=== PATIENT | female | born 1985 | race Hispanic/Latino ===

== ENCOUNTER 2020-10-03 00:34 | Emergency (ER) | payer OTHER, SELFPAY ==
[2020-10-03] MEDS ORDERED: dexAMETHasone 10 MG/ML VIAL ONE (02:11)
[2020-10-03] MEDS ORDERED: ALBUTEROL INHALER 60 PUFF/8 GM IH ONE (02:19)
[2020-10-03] MEDS ORDERED: NA CHLORIDE 0.9% 50 ML ONE (05:10)
[2020-10-03] MEDS ORDERED: NA CHLORIDE 0.9% 250 ML ONE (05:10)
[2020-10-03] MEDS ORDERED: CASIRIVIMAB/IMDEVIMAB 10 ML VIAL ONE (05:10)
--- NOTE | 2020-10-03 05:41 | RAD REPORT ---
EXAM DESCRIPTION: CT - Chest For Pe Angio - 10/03/2020 2:33 am CLINICAL HISTORY: Chest pain. shortness of breath COMPARISON: No comparisons TECHNIQUE: CT angiogram of the pulmonary arteries was performed with MIP. All CT scans are performed using dose optimization technique as appropriate and may include automated exposure control or mA/KV adjustment according to patient size. FINDINGS: No evidence of pulmonary thromboembolism. No acute aortic finding demonstrated. Multiple areas alveolar infiltrates are present throughout both lungs greatest in the posterior right upper lobe suggesting underlying moderately severe pulmonary infection. Enlarged right hilar and med iastinal lymph nodes are present. No significant pericardial or pleural fluid. No concerning bony finding. IMPRESSION: No evidence of pulmonary thromboembolism. Moderately severe findings of pulmonary infection are seen. This may be related to underlying COVID-1 9 infection. Adenopathy is also noted in the mediastinum and right hilum.
--- NOTE | 2020-10-03 05:55 | ER ---
Nurse's Notes [facility] Name: Faye Argueta Age: 34 yrs Sex: Female : 1985 Arrival Date: 10/03/2020 Time: 00:38 Bed 8 Private MD: Diagnosis: Coronavirus infection, unspecified Presentation: 10/03 01:21 Chief complaint: Patient states: covid positive on Monday, reports fatigue, fever, N/V em and shortness of breath. Coronavirus screen: Vaccine status: Patient reports being unvaccinated. Ebola Screen: Patient negative for fever greater than or equal to 101.5 degrees Fahrenheit, and additional compatible Ebola Virus Disease symptoms Patient denies exposure to infectious person. Patient denies travel to an Ebola-affected area in the 21 days before illness onset. No symptoms or risks identified at this time. Initial Sepsis Screen: Does the patient meet any 2 criteria? HR > 90 bpm. Does the patient have a suspected source of infection? No. Patient's initial sepsis screen is negative. Risk Assessment: Do you want to hurt yourself or someone else? Patient reports no desire to harm self or others. Onset of symptoms was October 03, 2020. 01:21 Method Of Arrival: Ambulatory em 01:21 Acuity: ANIYAH 3 em Historical: - Allergies: 01:22 No Known Allergies; em - PMHx: 01:22 None; em - PSHx: 01:22 section; em - Immunization history:: Client reports having NOT received the Covid vaccine. - Social history:: Smoking status: Patient denies any tobacco usage or history of. - Family history:: not pertinent. - Hospitalizations: : No recent hospitalization is reported. Assessment: 01:45 General: Appears in no apparent distress. comfortable, Behavior is calm, cooperative. jb4 Pain: Denies pain. Neuro: Level of Consciousness is awake, alert, obeys commands, Oriented to person, place, time, situation. Cardiovascular: Patient's skin is warm and dry. Respiratory: Airway is patent Respiratory effort is even, unlabored, Respiratory pattern is regular, symmetrical. GI: No signs and/or symptoms were reported involving the gastrointestinal system. : No signs and/or symptoms were reported regarding the genitourinary system. EENT: No signs and/or symptoms were reported regarding the EENT system. Derm: No signs and/or symptoms reported regarding the dermatologic system. Skin is intact, Skin is pink, warm \T\ dry. Musculoskeletal: Circulation, motion, and sensation intact. Range of motion: intact in all extremities. 03:00 Reassessment: Patient appears in no apparent distress at this time. Patient and/or jb4 family updated on plan of care and expected duration. Pain level reassessed. Patient is alert, oriented x 3, equal unlabored respirations, skin warm/dry/pink. 05:00 Reassessment: Patient appears in no apparent distress at this time. Patient and/or jb4 family updated on plan of care and expected duration. Pain level reassessed. Patient is alert, oriented x 3, equal unlabored respirations, skin warm/dry/pink. 06:21 Reassessment: Pt is resting in bed with eyes closed, respirations are even and jb4 unlabored with no s/s of pain or distress noted. 06:45 Reassessment: D/c pending Regen-Cov monitoring. jb4 Vital Signs: 01:21 Pulse 100; Resp 26; Temp 98.9; Pulse Ox 99% on R/A; Weight 95.25 kg; Height 5 ft. 1 in. em (154.94 cm); 01:33 BP 106 / 94; em 03:00 BP 99 / 56; Pulse 95; Resp 22; Pulse Ox 95% on R/A; jb4 05:15 BP 90 / 51; Pulse 93; Resp 18; Pulse Ox 95% on R/A; jb4 05:30 BP 100 / 65; Pulse 87; Resp 20; Pulse Ox 94% on R/A; jb4 06:00 BP 106 / 71; Pulse 85; Resp 16; Pulse Ox 92% on R/A; jb4 06:15 BP 108 / 71; Pulse 84; Resp 18; Pulse Ox 93% on R/A; jb4 01:21 Body Mass Index 39.68 (95.25 kg, 154.94 cm) em ED Course: 00:38 Patient arrived in ED. wm 01:17 Mark Cancino PA is PHCP. jmm 01:17 Peewee Vale MD is Attending Physician. jmm 01:22 Triage completed. em 01:22 Arm band placed on. em 02:15 Bertrand Payne, GABBY is Primary Nurse. jb4 02:16 Initial lab(s) drawn, by al, sent to lab. Inserted saline lock: 20 gauge in left jb4 antecubital area, using aseptic technique. Blood collected. 02:33 CT Chest For PE Angio In Process Unspecified. EDNC 07:16 Attending Physician role handed off by Peewee Vale MD cha 07:16 Brayan Mckay MD is Attending Physician. [facility] 07:52 No provider procedures requiring assistance completed. IV discontinued, intact, ss bleeding controlled, No redness/swelling at site. Pressure dressing applied. Administered Medications: 01:59 Not Given (Other Intervention Used): Xopenex (levalbuterol) (3) 1.25 mg Inhalation once jb4 02:15 Drug: Decadron - Dexamethasone 10 mg Route: IVP; Site: left antecubital; jb4 02:45 Follow up: Response: No adverse reaction jb4 02:15 Drug: Albuterol HFA Inhaler 2 puffs Route: Inhalation; jb4 05:15 Drug: REGEN-COV Dose Pack 120 mg/mL-120 mg/mL (EUA) 600 mg Route: IV; Rate: calculated jb4 rate; Site: left antecubital; 06:15 Follow up: Response: No adverse reaction; IV Status: Completed infusion; IV Intake: jb4 260ml 06:20 Drug: NS 0.9% 1000 ml Route: IV; Rate: 1000 ml; Site: left antecubital; jb4 Intake: 06:15 IV: 260ml; Total: 260ml. jb4 Outcome: 05:54 Discharge ordered by . rn 07:52 Discharged to home ambulatory, with family. 07:52 Condition: good 07:52 Discharge instructions given to patient, Instructed on discharge instructions, follow up and referral plans. Demonstrated understanding of instructions, follow-up care. 07:52 Patient left the ED. Signatures: Dispatcher [employer] Brayan Quick MD MD cha Mickail, Joel, PA PA jmm Munoz, Edgar, GABBY PIERRE Peewee Vale MD MD rn Smirch, Shelby, RN RN ss Bryson, James, RN RN jb4 Marsh, Wendy
--- NOTE | 2020-10-03 05:55 | EDPHYS ---
Physician Documentation [facility] Name: Faye Argueta Age: 34 yrs Sex: Female : 1985 Arrival Date: 10/03/2020 Time: 00:38 Bed 8 Private MD: VALENTIN Physician Brayan Mckay HPI: 10/03 03:58 This 34 yrs old Female presents to ER via Ambulatory with complaints of rn Shortness Of Breath, +COVID. 04:02 The patient has shortness of breath at rest, with light activity. Onset: The rn symptoms/episode began/occurred 1.5 week(s) ago. Duration: The symptoms are continuous. The patient's shortness of breath is aggravated by coughing, light activity, is alleviated by nothing. Associated signs and symptoms: Pertinent positives: non-productive cough, Pertinent negatives: hemoptysis, loss of consciousness. Severity of symptoms: At their worst the symptoms were mild in the emergency department the symptoms are unchanged. The patient has not experienced similar symptoms in the past. The patient has not recently seen a physician. Patient reports 1.5 weeks of cough and mild shortness of breath. Covid positive. Also active smoker.. Historical: - Allergies: 01:22 No Known Allergies; em - PMHx: 01:22 None; em - PSHx: 01:22 section; em - Immunization history:: Client reports having NOT received the Covid vaccine. - Social history:: Smoking status: Patient denies any tobacco usage or history of. - Family history:: not pertinent. - Hospitalizations: : No recent hospitalization is reported. ROS: 04:02 Constitutional: Negative for fever, chills, and weight loss, Eyes: Negative for injury, rn pain, redness, and discharge, Neck: Negative for injury, pain, and swelling, Cardiovascular: Negative for chest pain, palpitations, and edema, Respiratory: Positive for shortness of breath and cough Abdomen/GI: Negative for abdominal pain, nausea, vomiting, diarrhea, and constipation, Back: Negative for injury and pain, MS/Extremity: Negative for injury and deformity, Skin: Negative for injury, rash, and discoloration, Neuro: Negative for headache, weakness, numbness, tingling, and seizure. 04:02 All other systems are negative. Exam: 04:02 Constitutional: Overweight female, no acute distress Head/Face: Normocephalic, rn atraumatic. Eyes: Periorbital areas with no swelling, redness, or edema. ENT: No stridor Cardiovascular: Regular rate and rhythm. No pulse deficits. Respiratory: Mild tachypnea, no retractions, speaking full sentences Abdomen/GI: Soft, non-tender Skin: Warm, dry MS/ Extremity: Pulses equal, no cyanosis. Neuro: Awake and alert, GCS 15 Vital Signs: 01:21 Pulse 100; Resp 26; Temp 98.9; Pulse Ox 99% on R/A; Weight 95.25 kg; Height 5 ft. 1 in. em (154.94 cm); 01:33 BP 106 / 94; em 03:00 BP 99 / 56; Pulse 95; Resp 22; Pulse Ox 95% on R/A; jb4 05:15 BP 90 / 51; Pulse 93; Resp 18; Pulse Ox 95% on R/A; jb4 05:30 BP 100 / 65; Pulse 87; Resp 20; Pulse Ox 94% on R/A; jb4 06:00 BP 106 / 71; Pulse 85; Resp 16; Pulse Ox 92% on R/A; jb4 06:15 BP 108 / 71; Pulse 84; Resp 18; Pulse Ox 93% on R/A; jb4 01:21 Body Mass Index 39.68 (95.25 kg, 154.94 cm) em MDM: 01:31 Patient medically screened. [facility] 03:37 ED course: Radiology system unable to transmit images to virtual radiology, causing rn delay. 05:13 ED course: Still no radiology read, radiology clerk states still not able to submit rn images and IT has not gotten back to her with a solution. Several calls to Dr. Sims and texts by broadband technician without response or answering of phone. Attempting to call another radiologist to have the studies read.. 05:52 Differential diagnosis: pneumonia, Pulmonary Embolism Covid. Data reviewed: vital rn signs, nurses notes, lab test result(s), radiologic studies, CT scan, and as a result, I will discharge patient. Data interpreted: monitoring manager: rate is 87 beats/min, rhythm is normal sinus rhythm, regular, with no ectopy, Interpretation: normal rate, normal rhythm, Pulse oximetry: on room air is 97 %. Interpretation: normal. Counseling: I had a detailed discussion with the patient and/or guardian regarding: the historical points, exam findings, and any diagnostic results supporting the discharge/admit diagnosis, lab results, radiology results, the need for outpatient follow up, to return to the emergency department if symptoms worsen or persist or if there are any questions or concerns that arise at home. Counseling: I had a detailed discussion with the patient and/or guardian regarding: smoking cessation. Response to treatment: the patient's symptoms have mildly improved after treatment, and as a result, I will discharge patient. Special discussion: I discussed with the patient/guardian in detail that at this point there is no indication for admission to the hospital. It is understood, however, that if the symptoms persist or worsen the patient needs to return immediately for re-evaluation. ED course: No indication for emergent admission, no increase in oxygen requirement. Patient is a chronic smoker and overweight so Regeneron offered and accepted by patient, completing infusion now. Will DC home following Regeneron infusion with return precautions.. 10/03 01:33 Order name: CT Chest For PE Angio; Complete Time: 05:44 [facility] 10/03 01:31 Order name: Saline Lock; Complete Time: 02:16 [facility] Administered Medications: 01:59 Not Given (Other Intervention Used): Xopenex (levalbuterol) (3) 1.25 mg Inhalation once jb4 02:15 Drug: Decadron - Dexamethasone 10 mg Route: IVP; Site: left antecubital; jb4 02:45 Follow up: Response: No adverse reaction jb4 02:15 Drug: Albuterol HFA Inhaler 2 puffs Route: Inhalation; jb4 05:15 Drug: REGEN-COV Dose Pack 120 mg/mL-120 mg/mL (EUA) 600 mg Route: IV; Rate: calculated jb4 rate; Site: left antecubital; 06:15 Follow up: Response: No adverse reaction; IV Status: Completed infusion; IV Intake: jb4 260ml 06:20 Drug: NS 0.9% 1000 ml Route: IV; Rate: 1000 ml; Site: left antecubital; jb4 Disposition Summary: 10/03/20 05:54 Discharge Ordered Location: Home rn Condition: Stable rn Diagnosis - Coronavirus infection, unspecified rn Followup: [facility] - With: Private Physician - When: 2 - 3 days - Reason: Recheck today's complaints, Continuance of care, Re-evaluation by your physician Discharge Instructions: - Discharge Summary Sheet [facility] - COVID-19 jmm - Viral Respiratory Infection, [id number] rn Forms: - Medication Reconciliation Form rn - Thank You Letter rn - Antibiotic internet researcher - Prescription Opioid Use rn Signatures: Dispatcher [employer] Mark Mena PA PA jmm Munoz, Edgar, RN RN em Nieto, Roman, MD MD rn Bryson, James, RN RN jb4 Corrections: (The following items were deleted from the chart) 02:16 01:33 Urine Test ordered. [facility] jb4
[2020-10-03] MEDS ORDERED: NA CHLORIDE 0.9% 1,000 ML ONE (06:53)
[2020-10-03 07:58] VITALS: TEMP 98.9
[2020-10-03 08:05] VITALS: BP 108/71; O2SAT 93
== END 2020-10-03 07:52 | disposition home or self-care (01) ==
LOC: EDSEX 00:34 → ER 00:34
DX: U07.1 COVID-19 (principal)
CPT/HCPCS: 96365; 71275; 96375; 99284; Q9967; J1100; J7050; J7030

== ENCOUNTER 2021-02-01 08:44 | Emergency (ER) | payer OTHER ==
--- NOTE | 2021-02-01 10:46 | RAD REPORT ---
EXAM DESCRIPTION: RAD - Chest Single View - 02/01/2021 10:29 am CLINICAL HISTORY: Cough;SOB COMPARISON: CT chest September 2020 TECHNIQUE: AP portable chest image was obtained 02/01/2021 10:29 am . FINDINGS: No peripheral mass consolidation. There is much better aeration of the lung parenchyma whe n compared to the September study. No failure or volume overload findings. Heart and vasculature are nor mal. No measurable pleural effusion and no pneumothorax. No acute bony abnormality seen. No acute aor tic findings suspected. IMPRESSION: No acute cardiopulmonary process.
[2021-02-01 10:52] LABS: SARS-COV-2 RT PCR NEGATIVE (NEGATIVE)
--- NOTE | 2021-02-01 11:52 | ER ---
Nurse's Notes [facility] Name: Faye Argueta Age: 35 yrs Sex: Female : 1985 Arrival Date: 02/01/2021 Time: 08:48 Bed 10 Private MD: Diagnosis: Acute upper respiratory infection, unspecified Presentation: 02/01 09:07 Chief complaint: Patient states: she has had cough, congestion and fatigue for approx 3 ap3 days. Patient reports she has been around those who are sick, however only one of those people tested COVID positive. Patient states he feels like she is having a hard time catching her breath. Coronavirus screen: chills, congestion, cough unrelated to allergies, fatigue, fever, headache, Client presents with at least one sign or symptom that may indicate coronavirus-19. Standard/surgical mask placed on the client. Provider contacted for isolation considerations. Ebola Screen: No symptoms or risks identified at this time. Initial Sepsis Screen: Does the patient meet any 2 criteria? No. Patient's initial sepsis screen is negative. Does the patient have a suspected source of infection? No. Patient's initial sepsis screen is negative. Risk Assessment: Do you want to hurt yourself or someone else? Patient reports no desire to harm self or others. Onset of symptoms was January 29, 2021. 09:07 Method Of Arrival: Ambulatory ap3 09:07 Acuity: ANIYAH 4 ap3 Triage Assessment: 09:12 General: Appears in no apparent distress. Behavior is calm, cooperative. Pain: ap3 Complains of pain in generalized body aches. Neuro: Level of Consciousness is awake, alert, obeys commands, Oriented to person, place, time, situation, Appropriate for age Moves all extremities. Gait is steady, Speech is normal. Cardiovascular: Patient's skin is warm and dry. Respiratory: Reports shortness of breath at rest Airway is patent Respiratory effort is even, unlabored, Onset: The symptoms/episode began/occurred gradually, the patient has mild shortness of breath. PMO ANALYST: 09:13 LMP N/A - control method ap3 Historical: - Allergies: 09:11 No Known Allergies; ap3 - Home Meds: 09:11 None [Active]; ap3 - PMHx: 09:11 None; ap3 - PSHx: 09:11 section; ap3 - Immunization history:: Client reports having NOT received the Covid vaccine. - Social history:: Smoking status: Patient reports the use of cigarette tobacco products, smokes one-half pack cigarettes per day. Screenin:12 Abuse screen: Denies threats or abuse. Nutritional screening: No deficits noted. ap3 Tuberculosis screening: No symptoms or risk factors identified. Fall Risk None identified. Assessment: 10:10 Reassessment: No changes from previously documented assessment. Patient and/or family ll1 updated on plan of care and expected duration. Pain level reassessed. Patient is alert, oriented x 3, equal unlabored respirations, skin warm/dry/pink. 11:10 Cardiovascular: No deficits noted. Rhythm is regular. Respiratory: Airway is patent ll1 Breath sounds are clear bilaterally. 12:10 Reassessment: No changes from previously documented assessment. Patient and/or family ll1 updated on plan of care and expected duration. Pain level reassessed. Patient is alert, oriented x 3, equal unlabored respirations, skin warm/dry/pink. Vital Signs: 09:07 Pulse 83; Resp 19; Temp 98.5(TE); Pulse Ox 98% on R/A; Weight 95.25 kg; Height 5 ft. 1 ap3 in. (154.94 cm); Pain 8/10; 09:07 BP 111 / 80 RA Sitting (auto/reg); ap3 12:20 BP 100 / 56; Pulse 81; Resp 18; Pulse Ox 98% on R/A; ll1 09:07 Body Mass Index 39.68 (95.25 kg, 154.94 cm) ap3 ED Course: 08:48 Patient arrived in ED. mr 09:11 Triage completed. ap3 09:13 Arm band placed on right wrist. ap3 09:13 Patient has correct armband on for positive identification. Call light in reach. Pulse ap3 ox on. NIBP on. 09:23 Neil Garcia NP is PHCP. pm1 09:23 Brayan Mckay MD is Attending Physician. pm1 09:42 Buck Duval, GABBY is Primary Nurse. ll1 10:29 Chest Single View XRAY In Process Unspecified. EDMS 12:20 No provider procedures requiring assistance completed. Patient did not have IV access ll1 during this emergency room visit. Administered Medications: 12:00 Drug: Tussionex Pennkinetic ER (chlorpheniramine-hydrocodone) Suspension 5 ml Route: PO;1 12:21 Follow up: Response: No adverse reaction ll1 12:00 Drug: Albuterol - atroVENT (ipratropium) (3:1) (2.5 mg - 0.5 mg) 3 ml Route: Nebulizer; ll1 12:21 Follow up: Response: No adverse reaction 1 12:00 Drug: Decadron (dexamethasone) 10 mg Route: IM; Site: right vastus lateralis; 1 12:21 Follow up: Response: No adverse reaction 1 Outcome: 11:50 Discharge ordered by MD. pm1 12:20 Discharged to home ambulatory. ll1 12:20 Condition: stable 12:20 Discharge instructions given to patient, Instructed on discharge instructions, follow up and referral plans. no drinking with medication, no driving heavy equipment, medication usage, Demonstrated understanding of instructions, follow-up care, medications, Prescriptions given X 3. 12:21 Patient left the ED. 1 Signatures: Dispatcher [employer] Leanna Newell Patrick, NP SEXUAL ASSAULT COUNSELLOR pm1 Sada Cook RN RN [id number] Buck Duval RN RN ll1
--- NOTE | 2021-02-01 11:52 | EDPHYS ---
Physician Documentation [facility] Name: Faye Argueta Age: 35 yrs Sex: Female : 1985 Arrival Date: 02/01/2021 Time: 08:48 Bed 10 Private MD: ED Physician Brayan Mckay HPI: 02/01 11:48 This 35 yrs old Female presents to ER via Ambulatory with complaints of pm1 Shortness Of Breath, Fever, Headache. 11:48 The patient has shortness of breath at rest. Onset: The symptoms/episode began/occurred pm1 3 day(s) ago. Duration: The symptoms are continuous. The patient's shortness of breath is aggravated by nothing, is alleviated by nothing. Associated signs and symptoms: Pertinent positives: non-productive cough, fever, headache, Pertinent negatives: chest pain, nausea, vomiting. Severity of symptoms: in the emergency department the symptoms are unchanged. The patient has not experienced similar symptoms in the past. The patient has not recently seen a physician. Exposure to Covid positive coworker. 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 - Social history:: Smoking status: Patient reports the use of cigarette tobacco products, smokes one-half pack cigarettes per day. ROS: 11:48 Neck: Negative for injury, pain, and swelling, Cardiovascular: Negative for chest pain, pm1 palpitations, and edema. 11:48 Abdomen/GI: Negative for abdominal pain, nausea, vomiting, diarrhea, and constipation, Back: Negative for injury and pain, MS/Extremity: Negative for injury and deformity, Skin: Negative for injury, rash, and discoloration. 11:48 Constitutional: Positive for body aches, fever, Negative for poor PO intake. 11:48 ENT: Negative for ear pain, sore throat. 11:48 Respiratory: Positive for cough, shortness of breath. 11:48 Neuro: Positive for headache, Negative for numbness, tingling. 11:48 All other systems are negative. pm1 Exam: 11:48 Constitutional: This is a well developed, well nourished patient who is awake, alert, pm1 and in no acute distress. Head/Face: Normocephalic, atraumatic. 11:48 Back: No spinal tenderness. No costovertebral tenderness. Full range of motion. Skin: Warm, dry with normal turgor. Normal color with no rashes, no lesions, and no evidence of cellulitis. MS/ Extremity: Pulses equal, no cyanosis. Neurovascular intact. Full, normal range of motion. 11:48 Eyes: Exam is negative for acute changes, Conjunctiva: no acute changes, no injection, Sclera: no acute changes, icterus, is not appreciated. 11:48 ENT: Exam is negative for acute changes, Mouth: Lips: normal, moist, Oral mucosa: normal, pink and intact, moist. 11:48 Cardiovascular: Exam negative for acute changes, Rate: normal, Rhythm: regular, Pulses: no pulse deficits are appreciated, Heart sounds: normal, normal S1and S2. 11:48 Respiratory: Exam negative for acute changes, respiratory distress, shortness of breath, Breath sounds: are clear throughout. 11:48 Abdomen/GI: Exam negative for acute changes, Inspection: abdomen appears normal, Palpation: abdomen is soft and non-tender, in all quadrants. 11:48 Neuro: Exam negative for acute changes, Orientation: is normal, Mentation: is normal, Motor: is normal, moves all fours. Vital Signs: 09:07 Pulse 83; Resp 19; Temp 98.5(TE); Pulse Ox 98% on R/A; Weight 95.25 kg; Height 5 ft. 1 ap3 in. (154.94 cm); Pain 8/10; 09:07 BP 111 / 80 RA Sitting (auto/reg); ap3 12:20 BP 100 / 56; Pulse 81; Resp 18; Pulse Ox 98% on R/A; ll1 09:07 Body Mass Index 39.68 (95.25 kg, 154.94 cm) ap3 MDM: 09:23 Patient medically screened. [facility] 11:48 Data reviewed: vital signs. Data interpreted: Pulse oximetry: on room air is 98 %. pm1 Interpretation: normal. Counseling: I had a detailed discussion with the patient and/or guardian regarding: the historical points, exam findings, and any diagnostic results supporting the discharge/admit diagnosis, lab results, radiology results, the need for outpatient follow up, to return to the emergency department if symptoms worsen or persist or if there are any questions or concerns that arise at home. 02/01 09:24 Order name: COVID-19/FLU A+B (Document "Date of Onset" if Symptomatic); Complete Time: pm1 11:12 02/01 09:24 Order name: Chest Single View XRAY; Complete Time: 11:12 pm1 Administered Medications: 12:00 Drug: Tussionex Pennkinetic ER (chlorpheniramine-hydrocodone) Suspension 5 ml Route: PO;ll1 12:21 Follow up: Response: No adverse reaction ll1 12:00 Drug: Albuterol - atroVENT (ipratropium) (3:1) (2.5 mg - 0.5 mg) 3 ml Route: Nebulizer; ll1 12:21 Follow up: Response: No adverse reaction ll1 12:00 Drug: Decadron (dexamethasone) 10 mg Route: IM; Site: right vastus lateralis; ll1 12:21 Follow up: Response: No adverse reaction ll1 Disposition Summary: 02/01/21 11:50 Discharge Ordered Location: Home pm1 Problem: new pm1 Symptoms: have improved pm1 Condition: Stable pm1 Diagnosis - Acute upper respiratory infection, unspecified pm1 Followup: pm1 - With: Emergency Department - When: As needed - Reason: Worsening of condition Followup: pm1 - With: Private Physician - When: 2 - 3 days - Reason: Recheck today's complaints, Continuance of care, Re-evaluation by your physician Discharge Instructions: - Discharge Summary Sheet pm1 - Acute Bronchitis, Adult pm1 - Upper Respiratory Infection, Adult pm1 Forms: - Medication Reconciliation Form pm1 - Thank You Letter pm1 - Antibiotic Education pm1 - Prescription Opioid Use pm1 Prescriptions: - Ventolin HFA 90 mcg/actuation Inhalation HFA aerosol inhaler - inhale 1 puff by INHALATION route every 4-6 hours As needed; 1 Inhaler; pm1 Refills: 0, Product Selection Permitted - Medrol (Eleazar) 4 mg Oral Tablets, Dose Pack - take 1 tablet by ORAL route as directed - follow package instructions; 1 pm1 packet; Refills: 0, Product Selection Permitted - Guaifenesin AC 10-100 mg/5 mL Oral Liquid - take 10 milliliters by ORAL route every 4 hours As needed; 240 milliliter; pm1 Refills: 0, Product Selection Permitted Addendum: 02/02/2021 12:51 Co-signature as Attending Physician, Brayan Mckay MD I agree with the assessment and c zacarias plan of care. Signatures: Dispatcher [employer] Brayan Quick MD MD cha Marinas, Patrick, SECRETARY BOOK KEEPER SECRETARY BOOK KEEPER pm1 Sada Cook RN RN ap3 Buck Duval RN RN ll1
[2021-02-01] MEDS ORDERED: dexAMETHasone 10 MG/ML VIAL ONE (11:53)
[2021-02-01] MEDS ORDERED: HYDROCODONE/CHLORPHEN 5 ML/OSYR ONE (11:53)
[2021-02-01] MEDS ORDERED: IPRATROPIUM BROM 0.5MG/2.5ML ONE (11:54)
[2021-02-01] MEDS ORDERED: ALBUTEROL 2.5 MG/3 ML NEB SOL ONE (11:54)
[2021-02-01 12:57] VITALS: TEMP 98.5; O2SAT 98
[2021-02-01 12:58] VITALS: BP 100/56
== END 2021-02-01 12:21 | disposition home or self-care (01) ==
LOC: ER 08:44
DX: J06.9 Acute upper respiratory infection, unspecified (principal); F17.210 Nicotine dependence, cigarettes, uncomplicated; Z20.822 Contact with and (suspected) exposure to COVID-19
CPT/HCPCS: 0240U; 71045; 94640; 96372; 99284; J1100

== ENCOUNTER 2022-08-14 18:16 | Emergency (ER) | payer OTHER, SELFPAY ==
--- OUTSIDE RECORDS SUMMARY | 2022-08-14 18:18 | XMS REPORT | Continuity of Care Document ---
:1985 Author Organization [facility] t Address [address] [place] [address] [address] [place] [address] Care Team Providers Name Role Phone Pcp, Patient Does Not Have A Primary Care Physician +[id number] TRICIA MONTGOMERY Attending Clinician Unavailable Capo RN, Abbi Burciaga Attending Clinician Unavailable Tricia Montgomery MD Attending Clinician Doctor Unassigned, [place] Attending Clinician Unavailable LEANN AGUERO Attending Clinician Unavailable Leann Aguero PA-C Attending Clinician LEE ROMO Attending Clinician Unavailable Melody Ramos Attending Clinician Lee May Attending Clinician 2, [facility] Attending Clinician Unavailable Karen Monzon Attending Clinician Bolivar Rojas Attending Clinician BOLIVAR LOPEZ Attending Clinician Unavailable Payers Payer Name Policy Type Policy Number Effective Date Expiration Date Christiano guerrero [facility] VINNY [id number] 2021 00:00:00 Problems Condition Condition Condition Status Onset Resolution Last Treating Co mments Source Name Details Category Date Date Treatment Clinician Date Presence Presence Disease Active 2021-02 Unive rs of of 0-24 [place]y of [place] Medical contracept contracept Br anch ruel device ruel device Morbid Morbid Disease Active Univers obesity obesity 7-20 [place] of [place] mass index 00 [place] dical of of Branch 40.0-49.9 40.0-49.9 Allergies, Adverse Reactions, Alerts Allergy Allergy Status Severity Reaction(s) Onset Inactive Treating Comm ents Source Name Type Date Date Clinician NO KNOWN Drug Active Univers ALLERGIE Class ity of S [facility] Social History Social Habit Start Date Stop Date Quantity Comments Source History of Cigarette Smoker Universi ty of tobacco use [facility] [place] History SDAL University o f Alcohol Frequency [facility] [place] edical Branch History SDAL University o f Alcohol Std [facility] [place] [facility] [place] [facility] Binge [facility] al Branch Exposure to 2021-11-19 2021-11-29 Not sure University of SARS-CoV-2 00:00:00 08:41:00 [facility] (event) [place] Alcohol intake 2021-11-29 2021-11-29 Current drinker of Un iversity of 00:00:00 00:00:00 alcohol (finding) [facility] Cigarettes smoked 2021-08-25 2021-08-25 Univers ity of current (pack per 00:00:00 00:00:00 [facility] ) - Reported Branch Cigarette 2021-08-25 2021-08-25 University of pack-years 00:00:00 00:00:00 [facility] Tobacco use and 2021-08-25 2021-08-25 Smokeless tobacco Un iversity of exposure 00:00:00 00:00:00 non-user [facility] Alcohol Comment 2021-08-25 2021-08-25 occasionally Univers ity of 00:00:00 00:00:00 [facility] Sex [birth year] Universit y of 00:00:00 00:00:00 [facility] Smoking Status Start Date Stop Date Source Smokes tobacco daily 2021-08-25 00:00:00 Univers ity of [facility] Medications Ordered Filled Start Stop Current Ordering Indication Dosage Frequency Signature Comments Components Source Medication Medication Date Date Medication? Clinician (SIG) Name Name fluconazole 2021-02 Yes [id number] 200mg Take 1 Univers (DIFLUCAN) 0-25 tablet by ity of 200 mg 00:00: mouth in [place] tablet 00 the Medical morning. Branch fluconazole 2021-02 Yes [id number] 200mg Take 1 Univers (DIFLUCAN) 0-25 tablet by ity of 200 mg 00:00: mouth in [place] tablet 00 the Medical morning. Branch fluconazole 2021-02 Yes [id number] 200mg Take 1 Univers (DIFLUCAN) 0-25 tablet by ity of 200 mg 00:00: mouth in [place] tablet 00 the Medical morning. Branch fluconazole 2021-02 Yes [id number] 200mg Take 1 Univers (DIFLUCAN) 0-25 tablet by ity of 200 mg 00:00: mouth in [place] tablet 00 the Medical morning. Branch No known 2021-02 No No known Unive rs medications 0-24 medication it y of 14:57: s [place] 23 Medical Branch miSOPROStoL Yes [id number] Take one Univers 200 mcg 9-21 tablet ity of tablet 00:00: night [place] 00 before Medical procedure, Branch then take one tablet morning of procedure metroNIDAZO Yes [id number] 500mg Take 1 Univers LE 500 mg 9-21 tablet by ity o f tablet 00:00: mouth [place] 00 every 12 Medical (twelve) Branch hours. miSOPROStoL Yes [id number] Take one Univers 200 mcg 9-21 tablet ity of tablet 00:00: night [place] 00 before Medical procedure, Branch then take one tablet morning of procedure metroNIDAZO Yes [id number] 500mg Take 1 Univers LE 500 mg 9-21 tablet by ity o f tablet 00:00: mouth [place] 00 every 12 Medical (twelve) Branch hours. fluconazole 2021- No [id number] 150mg Take 1 Univers 150 mg 9-21 09-22 tablet by ity of tablet 00:00: 04:59 mouth [place] 00 :[place] now for 1 Medical dose. Branch fluconazole 2021- No [id number] 150mg Take 1 Univers 150 mg 9-21 09-22 tablet by ity of tablet 00:00: 04:59 [place] :[place] now for 1 Medical dose. Branch miSOPROStoL Yes [id number] Take one Univers 200 mcg 8-23 tablet ity of tablet 00:00: night [place] 00 before Medical procedure, Branch then take one tablet morning of procedure miSOPROStoL Yes [id number] Take one Univers 200 mcg 8-23 tablet ity of tablet 00:00: night [place] 00 before Medical procedure, Branch then take one tablet morning of procedure miSOPROStoL 2021-0 Yes [id number] Take one Univers 200 mcg 8-23 tablet ity of tablet 00:00: night [place] 00 before Medical procedure, Branch then take one tablet morning of procedure miSOPROStoL 2021-0 Yes [id number] Take one Univers 200 mcg 8-23 tablet ity of tablet 00:00: night [place] 00 before Medical procedure, Branch then take one tablet morning of procedure miSOPROStoL 2021-0 2- No [id number] Take one Univers 200 mcg 8-23 -21 tablet ity of tablet 00:00: 00:00 night [place] 00 :00 before Medical procedure, Branch then take one tablet morning of procedure miSOPROStoL 2021-0 2- No [id number] Take one Univers 200 mcg 8-23 -21 tablet ity of tablet 00:00: 00:00 night [place] 00 :00 before Medical procedure, Branch then take one tablet morning of procedure nystatin 2021-0 Yes [id number] Apply to U nivers 100,000 8-11 area(s) 2 ity of unit/gram 00:00: (two) [place] cream 00 times Medical daily. Branch nystatin 2021-0 Yes [id number] Apply to U nivers 100,000 8-11 area(s) 2 ity of unit/gram 00:00: (two) [place] cream 00 times Medical daily. Branch nystatin 2021-0 Yes [id number] Apply to U nivers 100,000 8-11 area(s) 2 ity of unit/gram 00:00: (two) [place] cream 00 times Medical daily. Branch nystatin 2021-0 Yes [id number] Apply to U nivers 100,000 8-11 area(s) 2 ity of unit/gram 00:00: (two) [place] cream 00 times Medical daily. Branch nystatin 2021-0 Yes [id number] Apply to U nivers 100,000 8-11 area(s) 2 ity of unit/gram 00:00: (two) [place] cream 00 times Medical daily. Branch Immunizations Ordered Filled Immunization Date Status Comments [facility] e Immunization Name Name Influenza Virus 2021-11-29 Completed Universit y of Vaccine Quad IM, 00:00:00 [facility] dical Preserv and ABX Branch Free 6 MO-64 YRS Influenza Virus 2021-11-29 Completed Universit y of Vaccine [place] IM, 00:00:00 [place] Me dical Preserv and ABX Branch Free 6 MO-64 YRS Influenza Virus 2021-11-29 Completed Universit y of Vaccine [place] IM, 00:00:00 [place] Me dical Preserv and ABX Branch Free 6 MO-64 YRS Influenza Virus 2021-11-29 Completed Universit y of Vaccine [place] IM, 00:00:00 [place] Me dical Preserv and ABX Branch Free 6 MO-64 YRS Influenza Virus 2021-11-29 Completed Universit y of Vaccine [place] IM, 00:00:00 [place] Me dical Preserv and ABX Branch Free 6 MO-64 YRS Vital Signs Vital Name Observation Time Observation Value Comments Source Systolic blood 2021-10-27 18:49:00 94 mm[Hg] Univer sity of pressure [facility] Diastolic blood 2021-10-27 18:49:00 61 mm[Hg] Unive rsity of pressure [facility] Heart rate 2021-10-27 18:49:00 88 /min Universi ty [facility] Body temperature 2021-10-27 18:49:00 37 [facility] Body height 2021-10-27 18:49:00 154.9 cm Universi ty [facility] Body weight 2021-10-27 18:49:00 96.072 kg [facility] BMI 2021-10-27 18:49:00 40.02 kg[facility] Sy[facility]olic blood 2021-10-02 18:49:00 101 mm[Hg] Univer sity of pressure [facility] Diastolic blood 2021-10-02 18:49:00 65 mm[Hg] Unive rsity of pressure [facility] Heart rate 2021-10-02 18:49:00 78 /min [place] [facility] Body temperature 2021-10-02 18:49:00 36.11 [facility] Respiratory rate 2021-10-02 18:49:00 17 /min [facility] Body height 2021-10-02 18:49:00 154.9 cm Universi ty [facility] Body weight 2021-10-02 18:49:00 98.062 kg Universi ty of [facility] BMI 2021-10-02 18:49:00 40.85 kg/m2 Univers ty [facility] Oxygen saturation in 2021-10-02 18:49:00 98 /min [facility] Arterial blood by [facility] Pulse oximetry Branch Procedures Procedure Date / Time Performed Performing Clinician Nissa e [facility] 2021-11-29 05:01:00 Doctor Unassigned, No [facility] [place] [facility] Medical Branch EXTERNAL PROVIDER 2021 05:01:00 Doctor Unassigned, No Univ [facility] RECORDS Name [facility] Encounters Start End Encounter Admission Attending Care Care Encounter Source Date/Time Date/Time Type Type Clinicians Facility Department ID 2022-08-25 2022-08-25 Outpatient TRICIA VALENZUELA [facility] [id number] Univers 15:00:00 15:00:00 ity of [facility] 2022-08-25 2022-08-25 Outpatient R TRICIA MONTGOMERY [facility] [id number] Univers 15:00:00 15:00:00 ity [facility] 2022-06-22 2022-06-22 Telephone Capo RAMON [id number] Univers 00:00:00 00:00:00 , Abbi MACDONALD [id number] ity [facility] [id number] [place] [id number] [address] 2022-01-05 2022-01-05 Outpatient R TRICIA MONTGOMERY [facility] [id number] Univers 09:00:00 09:00:00 ity of [facility] 2021-12-06 2021-12-06 Telephone Tricia Montgomery [id number] Univers 00:00:00 00:00:00 Cam [place] [id number] i ty [id number] [place] [id number] [address] 2021-11-30 2021-11-30 Case Tricia Montgomery [id number] Univers 00:00:00 00:00:00 Management Cam [place] [id number] ity of [place] [id number] [place] [id number] [place] dical NAL [address] [place] [address] 2021-11-29 2021-11-29 Outpatient R TRICIA MONTGOMERY [facility] [id number] Univers 09:00:00 10:24:09 ity of [facility] 2021-11-29 2021-11-29 Orders Doctor FRANKIE [id number] Univers 00:00:00 00:00:00 Only Unassigned, DEISY [id number] ity of [place] [facility] [id number] Bharat as [phone] [address] 2021-10-27 2021-10-27 Outpatient R LACI [facility] [id number] [facility] 13:15:00 14:25:01 LEANN ity [facility] 2021-10-27 2021-10-27 [facility] [id number] [facility] 13:15:00 14:25:01 Visit Leann SEVERINO [id number] i ty of [place] [id number] [phone] [address] 2021-10-27 2021-10-27 Outpatient R TRICIA MONTGOMERY [facility] [id number] Univers 09:00:00 09:00:00 ity of [facility] 2021-10-27 2021-10-27 Telephone Laci [facility] [id number] Univers 00:00:00 00:00:00 Leann SEVERINO [id number] i ty of [place] [id number] [id number] [place] dical [address] 2021 2021 Orders Doctor DAVID [id number] Univers 00:00:00 00:00:00 Only Unassigned, DEISY [id number] ity of [place] [facility] [id number] Bharat as [id number] [address] 2021-10-02 2021-10-02 Outpatient R TRISHA [facility] [id number] Univers 13:40:00 14:11:51 LEE jessi [facility] 2021-10-02 2021-10-02 Urgent Melody Pruitt [facility] [id number] Univers 13:40:00 14:11:51 Care Lee Romo [facility] [id number] ity of [place] [id number] Bharat as JENAE?BLEA [id number] [address] MEDICAL OFFICE BUILDING 2021-09-14 2021-09-14 Telephone Edwar Tricia [facility] [id number] Univers 00:00:00 00:00:00 Cam MAY[place] [id number] i ty [facility] [id number] [phone] [facility] [address] [facility] 2021-08-25 2021-08-25 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 2, Adc Lab [facility] [id number] Univers 11:30:00 11:45:00 Visit Leann Aguero [id number] ity [facility] [id number] [id number] [facility] [address] [facility] 2021-08-25 2021-08-25 Outpatient R LACI [facility] [id number] Univers 10:00:00 10:31:00 ELANN ocampo [facility] 2021-08-25 2021-08-25 Office Laci [facility] [id number] Univers 10:00:00 10:31:00 Visit Leann SEVERINO [id number] i ty of [facility] [id number] [id number] [facility] [address] [facility] 2021-08-25 2021-08-25 Outpatient R LACI [facility] [id number] Univers 10:00:00 10:31:00 LEANN ocampo [facility] 2021-08-25 2021-08-25 Letter Doctor FRANKIE [id number] Univers 00:00:00 00:00:00 (Out) Unassigned, DEISY [id number] ity of [place] [facility] [id number] Bharat as [phone] [facility] [address] [place] 2021-08-25 2021-08-25 [facility] [id number] Univers 00:00:00 00:00:00 Leannmarian [place] [id number] i ty of [facility] [id number] [phone] Va joseph ZARAGOZA [address] BUILDING 2021-08-25 2021-08-25 Orders Doctor DAVID [id number] Univers 00:00:00 00:00:00 Only Unassigned, DEISY [id number] ity of [place] [facility] [id number] Bharat as [id number] [facility] [address] [place] 2021-05-27 2021-05-27 Urgent Karen Walter [facility] 1.2.840. [id number] Univers 17:00:00 17:57:09 Care Bolivar Lopez [facility] [id number] ity of [place] [id number] Bharat as JENAE?BLEA [phone] [place] diclyndon KNEY [address] [place] MEDICAL OFFICE BUILDING 2021-05-27 2021-05-27 Outpatient R MARYBEL [facility] [id number] Univers 17:00:00 17:57:09 BOLIVAR ocampo o f [facility] 2021-05-27 2021-05-27 Orders Doctor FRANKIE [id number] Univers 00:00:00 00:00:00 Only Unassigned, DEISY [id number] ity of [place] [facility] [id number] Bharat as [id number] [address] Results This patient has no known results.
[2022-08-14] MEDS ORDERED: GABAPENTIN 300 MG CAP ONE (18:57)
[2022-08-14] MEDS ORDERED: dexAMETHasone 10 MG/ML VIAL ONE (18:57)
[2022-08-14] MEDS ORDERED: KETOROLAC 30 MG/ML INJ ONE (18:58)
--- NOTE | 2022-08-14 19:38 | RAD REPORT ---
EXAM DESCRIPTION: RAD - Hand Right 3 View - 08/14/2022 7:17 pm CLINICAL HISTORY: PAIN COMPARISON: No comparisons TECHNIQUE: Right hand, 3 views. FINDINGS: No fracture is identified. There is no dislocation or periosteal reaction noted. No foreign body or other soft tissue abnormalit y. IMPRESSION: Negative right hand examination.
--- NOTE | 2022-08-14 19:42 | EDPHYS ---
Physician Documentation [facility] Name: Faye Argueta Age: 36 yrs Sex: Female : 1985 Arrival Date: 08/14/2022 Time: 18:16 Bed 13 Private MD: VALENTIN Physician Brayan Mckay HPI: 08/14 18:45 This 36 yrs old Female presents to ER via Ambulatory with complaints of Hand sb4 Pain. 18:45 36 year old female with no medical problems who presents with complaints of right sb4 hand/wrist pain. She states that she has had this past for 2 months now, but it got worse last night. She has been taking family members medications at home- gabapentin and muscle relaxers without relief. 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 She also states that the pain is in her right shoulder and all down her right leg, believes she has a pinched nerve. She also reports numbness and decreased strength in her right hand.. 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 - Social history:: Smoking status: Patient reports the use of cigarette tobacco products, smokes one-half pack cigarettes per day. ROS: 18:45 Constitutional: Negative for fever, chills, and weight loss. sb4 18:45 MS/extremity: Positive for pain, of the right hand, right arm and right leg. 18:45 All other systems are negative. 19:45 Neuro: Positive for numbness, weakness, of the right hand. sb4 Exam: 18:45 Constitutional: This is a well developed, well nourished patient who is awake, alert, sb4 and in no acute distress. Head/Face: Normocephalic, atraumatic. 18:45 Musculoskeletal/extremity: Extremities: ROM: intact in all extremities, Circulation is intact in all extremities. Sensation intact. Vital Signs: 18:33 BP 127 / 75; Pulse 76; Resp 16; Temp 98.4; Pulse Ox 100% ; Weight 84.82 kg; Height 5 vg1 ft. 1 in. ; Pain 8/10; 19:24 BP 108 / 74; Pulse 65; Resp 16; Pulse Ox 98% ; vc1 18:33 Body Mass Index 35.33 (84.82 kg, 154.94 cm) vg1 18:33 Pain Scale: Adult vg1 MDM: 18:18 Patient medically screened. sb4 18:45 Differential diagnosis: tendonitis, arthritis, carpal tunnel, neuropathy, pinched nerve.sb4 19:44 Data reviewed: vital signs, nurses notes, radiologic studies, plain films. Independent sb4 interpretation of the following test(s) in the Emergency Department X-Ray: My interpretation is my interpretation of the hand xray images are no acute fracture or dislocation. Counseling: I had a detailed discussion with the patient and/or guardian regarding: the historical points, exam findings, and any diagnostic results supporting the discharge/admit diagnosis, lab results, radiology results, the need for outpatient follow up, a orthopedic surgeon. Medication response: Toradol partially relieved the patient's pain. 08/14 18:58 Order name: Hand Right 3 View XRAY; Complete Time: 19:38 sb4 08/14 19:43 Order name: Splint: preformed wrist splint; Complete Time: 20:11 sb4 Administered Medications: 18:58 Drug: Dexamethasone IM 10 mg Route: IM; Site: left gluteus; cm10 19:50 Follow up: Response: No adverse reaction; Marked relief of symptoms vc1 18:58 Drug: Ketorolac IM 30 mg Route: IM; Site: right gluteus; cm10 19:50 Follow up: Response: No adverse reaction; Marked relief of symptoms vc1 18:58 Drug: Gabapentin PO 300 mg Route: PO; cm10 19:50 Follow up: Response: No adverse reaction; Marked relief of symptoms vc1 Disposition Summary: 08/14/22 19:42 Discharge Ordered Location: Home sb4 Problem: an ongoing problem sb4 Symptoms: have improved sb4 Condition: Stable sb4 Diagnosis - Polyneuropathy, unspecified sb4 - Carpal tunnel syndrome, right upper limb sb4 Followup: sb4 - With: - When: 1 week - Reason: Further diagnostic work-up Discharge Instructions: - Discharge Summary Sheet sb4 - Carpal Tunnel Syndrome sb4 - Pinched Nerve sb4 - Wrist Splint or Brace, Adult, [id number] sb4 - Hand Exercises sb4 Forms: - Medication Reconciliation Form sb4 - Thank You Letter sb4 - Antibiotic Education sb4 - Prescription Opioid Use sb4 - [email or web address]_[email or web address] sb4 - Work release form pf1 Prescriptions: - gabapentin 100 mg Oral capsule - take 1 capsule by ORAL route 3 times per day; 15 capsule; Refills: 0, Product sb4 Selection Permitted - meloxicam 7.5 mg Oral tablet - take 1 tablet by ORAL route daily; 10 tablet; Refills: 0, Product Selection sb4 Permitted - Medrol (Eleazar) 4 mg Oral Tablets, Dose Pack - take 1 tablet by ORAL route as directed - follow package instructions; 1 sb4 packet; Refills: 0, Product Selection Permitted Signatures: Dispatcher [employer] Bharati Sparrow RN RN vg1 Eileen Trent PA-C PA-C sb4 Lupe Perez RN RN cm10 Moon Hancock RN vc1 Corrections: (The following items were deleted from the chart) 19:45 18:45 36 year old female with no medical problems who presents with complaints of right sb4 hand/wrist pain. She states that she has had this past for 2 months now, but it got worse last night. She has been taking family members medications at home- gabapentin and muscle relaxers without relief. 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 She also states that the pain is in her right shoulder and all down her right leg, believes she has a pinched nerve. No numbness, tingling, just sharp pain. sb4
--- NOTE | 2022-08-14 19:42 | ER ---
Nurse's Notes [facility] Name: Faye Argueta Age: 36 yrs Sex: Female : 1985 Arrival Date: 08/14/2022 Time: 18:16 Bed 13 Private MD: Diagnosis: Polyneuropathy, unspecified;Carpal tunnel syndrome, right upper limb Presentation: 08/14 18:33 Chief complaint: Patient states: Right hand pain x 1 month with numbness, has also vg1 stated pain and numbness to Right shoulder and Right leg. Coronavirus screen: Vaccine status: Patient reports being unvaccinated. Client denies travel out of the [place] in the last 14 days. Ebola Screen: Patient negative for fever greater than or equal to 101.5 degrees Fahrenheit, and additional compatible Ebola Virus Disease symptoms Patient denies exposure to infectious person. Patient denies travel to an Ebola-affected area in the 21 days before illness onset. Initial Sepsis Screen: Does the patient meet any 2 criteria? No. Patient's initial sepsis screen is negative. Does the patient have a suspected source of infection? No. Patient's initial sepsis screen is negative. Risk Assessment: Do you want to hurt yourself or someone else? Patient reports no desire to harm self or others. Onset of symptoms was July 2022. 18:33 Method Of Arrival: Ambulatory vg1 18:33 Acuity: ANIYAH 4 vg1 Triage Assessment: 18:34 General: Appears uncomfortable, Behavior is cooperative. Pain: Complains of pain in vg1 right hand and right leg and right shoulder Pain currently is 8 out of 10 on a pain scale. Derm: Skin is pink, warm \T\ dry. Musculoskeletal: Circulation, motion, and sensation intact. Swelling present in right hand. 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 - Social history:: Smoking status: Patient reports the use of cigarette tobacco products, smokes one-half pack cigarettes per day. Screenin:[facility] ED Fall Risk Assessment (Adult) History of falling in the last 3 months, vc1 including since admission No falls in past 3 months (0 pts) Confusion or Disorientation No (0 pts) Intoxicated or Sedated No (0 pts) Impaired Gait No (0 pts) Mobility Assist Device Used No (0 pt) Altered Elimination No (0 pt) Score/Fall Risk Level 0 - 2 = Low Risk Oriented to surroundings, Maintained a safe environment, Educated pt \T\ family on fall prevention, incl call for assistance when getting out of bed. Abuse screen: Denies threats or abuse. Nutritional screening: No deficits noted. Tuberculosis screening: No symptoms or risk factors identified. Assessment: 19:05 Reassessment: Patient and/or family updated on plan of care and expected duration. Pain vc1 level reassessed. Patient is alert, oriented x 3, equal unlabored respirations, skin warm/dry/pink. Assumed care of pt from GABBY Peter Patient states feeling better. Patient states symptoms have improved. Vital Signs: 18:33 BP 127 / 75; Pulse 76; Resp 16; Temp 98.4; Pulse Ox 100% ; Weight 84.82 kg; Height 5 vg1 ft. 1 in. ; Pain 8/10; 19:24 BP 108 / 74; Pulse 65; Resp 16; Pulse Ox 98% ; vc1 18:33 Body Mass Index 35.33 (84.82 kg, 154.94 cm) vg1 18:33 Pain Scale: Adult vg1 ED Course: 18:18 Patient arrived in ED. ts1 18:18 Eileen Trent [facility]-C [facility]. sb4 18:18 Brayan Mckay MD is Attending Physician. sb4 18:34 Triage completed. vg1 18:34 Arm band placed on. vg1 19:15 Patient has correct armband on for positive identification. Bed in low position. Call vc1 light in reach. Pulse ox on. NIBP on. 19:19 Hand Right 3 View XRAY In Process Unspecified. EDMS 19:22 Moon Hancock, GABBY is Primary Nurse. vc1 19:42 Arsh Baez MD is Referral Physician. sb4 19:50 No provider procedures requiring assistance completed. Patient did not have IV access vc1 during this emergency room visit. Administered Medications: 18:58 Drug: Dexamethasone IM 10 mg Route: IM; Site: left gluteus; cm10 19:50 Follow up: Response: No adverse reaction; Marked relief of symptoms vc1 18:58 Drug: Ketorolac IM 30 mg Route: IM; Site: right gluteus; cm10 19:50 Follow up: Response: No adverse reaction; Marked relief of symptoms vc1 18:58 Drug: Gabapentin PO 300 mg Route: PO; cm10 19:50 Follow up: Response: No adverse reaction; Marked relief of symptoms vc1 Medication: 19:25 VIS not applicable for this client. vc1 Outcome: 19:42 Discharge ordered by MD. vazquez 19:50 Discharged to home ambulatory. vc1 19:50 Condition: improved 19:50 Discharge instructions given to patient, Instructed on discharge instructions, follow up and referral plans. medication usage, Demonstrated understanding of instructions, follow-up care, medications, Prescriptions given X 3. 19:52 Patient left the ED. vc1 Signatures: Dispatcher [employer] EDBharati Garcia RN RN vg1 Moon Hancock RN RN vc1 Eileen Trent, PAEstefani PAEstefani cohen4 Penny Uribe PAS PAS ts1 Lupe Perez RN RN cm10 Corrections: (The following items were deleted from the chart) 20:13 20:12 Patient left the ED. vc1 vc1
[2022-08-14 20:24] VITALS: TEMP 98.4
[2022-08-14 20:28] VITALS: BP 108/74; O2SAT 98
== END 2022-08-14 20:12 | disposition home or self-care (01) ==
LOC: ER 18:16
DX: G56.01 Carpal tunnel syndrome, right upper limb (principal); G62.9 Polyneuropathy, unspecified
CPT/HCPCS: 96372; 99284; J1100

== ENCOUNTER 2022-09-01 16:44 | Emergency (ER) | payer OTHER ==
--- OUTSIDE RECORDS SUMMARY | 2022-09-01 16:47 | XMS REPORT | Continuity of Care Document ---
:1985 Author Organization Formerly [facility] t Address [address] [place] [address] [address] [place] [address] Care Team Providers Name Role Phone PCP, PATIENT DOES NOT HAVE A Primary Care Physician UnavailRONI Thomas Attending Clinician Unavailable LAB90 Attending Clinician Unavailable DIAN WALSH Attending Clinician Unavailable TRICIA MONTGOMERY Attending Clinician Unavailable Abbi Sacnlon RN Attending Clinician Unavailable Tricia Montgomery MD Attending Clinician Doctor Unassigned, [place] Attending Clinician Unavailable LEANN AGUERO Attending Clinician Unavailable Leann Aguero PA-C Attending Clinician LEE RICO Attending Clinician Unavailable Melody Ramos Attending Clinician Lee May Attending Clinician 2, [facility] Attending Clinician Unavailable Karen Monzon Attending Clinician Bolivar Rojas Attending Clinician BOLIVAR NO Attending Clinician Unavailable Payers Payer Name Policy Type Policy Number Effective Date Expiration Date Christiano [facility] 9 [id number] 2022 00:00:00 SILVER: HMO CASER IN 94 ON STAND [facility] [id number] 2021 00:00:00 Problems Condition Condition Condition Status [...] Active Univers ALLERGIE Class ity of S [facility] Social History Social Habit Start Date Stop Date Quantity Comments Source History SDOH University o f Alcohol Frequency [facility] edical Branch History SDOH University o f Alcohol Std Drinks [facility] History [facility] University o f Alcohol Binge [facility] al Branch Gender identity Shefali barraza - External Sexual orientation Shefali Taylor - External History of tobacco Cigarette Smoker Shefali Taylor - use External Cigarette 2022-08-31 2022-08-31 Shefali Taylor - pack-years 00:00:00 00:00:00 External Tobacco use and 2022-08-31 2022-08-31 Smokeless Shefali barraza - exposure 00:00:00 00:00:00 tobacco non-user External Alcohol intake 2022-08-31 2022-08-31 .14 /d Shefali mendes - 00:00:00 00:00:00 External History of Social 2022-08-31 2022-08-31 Shefali Taylor - function 00:00:00 00:00:00 External Alcohol Comment 2022-08-31 2022-08-31 socially Shefali barraza - 00:00:00 00:00:00 External Cigarettes smoked 2022-08-31 2022-08-31 Shefali Taylor - current (pack per 00:00:00 00:00:00 Externa l day) - Reported Exposure to 2021-11-19 2021-11-29 Not sure University SARS-CoV-2 (event) 00:00:00 08:41:00 [facility] Sex [birth year] Shefali goodmanold - 00:00:00 00:00:00 External Smoking Status Start Date Stop Date Source Smokes tobacco daily 2022-08-31 00:00:00 Shefali Seybold - External Medications Ordered Filled Start Stop Current Ordering Indication Dosage Frequency Signature Comments Components Source Medication Medication Date Date Medication? Clinician (SIG) Name Name Amoxicillin Yes [id number] 1{tbl} Take 1 Shefali -Pot 7-26 tablet by Seybold Clavulanate 00:00: mouth 2 - 875-125 MG 00 times Externa oral Tablet daily l TRIMETHOPRI Yes [id number] 1[drp] Apply 1 Shefali M-POLYMYXIN 7-26 9102 [place] [address]-2.1 00:00: eye every - UNIT/ML-% 00 4 (four) Agent Producer a ophthalmic hours l Solution Meloxicam Yes TAKE ONE Dayana ey 7.5 MG oral 7-12 (1) Seybold Tablet 00:00: TABLET(S) - 00 BY MOUTH Externa ONCE A DAY l FOR PAIN. Gabapentin Yes TAKE ONE Navid sey 100 MG oral 712 (1) Seybold Capsule 00:00: CAPSULE(S) - 00 BY MOUTH Externa THREE l TIMES A DAY FOR PAIN CONTROL. fluconazole 2021-02 Yes [id number] 200mg Take 1 Univers (DIFLUCAN) 0-25 tablet by ity of 200 mg 00:00: mouth in [place] tablet 00 the Medical morning. Branch fluconazole 2021-02 Yes [id number] 200mg Take 1 Univers (DIFLUCAN) 0-25 tablet by ity of 200 mg 00:00: mouth in [place] tablet 00 the Medical morning. Branch fluconazole 2021-02 Yes [id number] 200mg Take 1 Univers (DIFLUCAN) 0-25 tablet by ity of 200 mg 00:00: mouth in [place] tablet 00 the Medical morning. Branch fluconazole 2021-02 Yes [id number] 200mg Take 1 Univers (DIFLUCAN) 0-25 tablet by ity of 200 mg 00:00: mouth in [place] tablet 00 the Medical morning. Branch No known 2021-02 No No known Unive rs medications 0-24 medication it y of 14:57: s [place] 23 Medical Branch miSOPROStoL Yes [id number] Take one Univers 200 mcg 9-21 tablet ity of tablet 00:00: night [place] 00 before Medical procedure, Branch then take one tablet morning of procedure metroNIDAZO 2021-0 Yes [id number] 500mg Take 1 Univers LE 500 mg 9-21 tablet by ity o f tablet 00:00: mouth [place] 00 every 12 Medical (twelve) Branch hours. miSOPROStoL Yes [id number] Take one Univers 200 mcg 9-21 tablet ity of tablet 00:00: night [place] 00 before Medical procedure, Branch then take one tablet morning of procedure metroNIDAZO 2021-0 Yes [id number] 500mg Take 1 Univers LE 500 mg 9-21 tablet by ity o f tablet 00:00: mouth [place] 00 every 12 Medical (twelve) Branch hours. fluconazole 2021-0 2021- No [id number] 150mg Take 1 Univers 150 mg 9-21 - tablet by ity of tablet 00:00: 04:59 [place] now for 1 Medical dose. Branch fluconazole 2021-0 2021- No [id number] 150mg Take 1 Univers 150 mg 9-21 - tablet by ity of tablet 00:00: 04:59 [place] now for 1 Medical dose. Branch miSOPROStoL Yes [id number] Take one Univers 200 mcg 8-23 tablet ity of tablet 00:00: night [place] 00 before Medical procedure, Branch then take one tablet morning of procedure miSOPROStoL 0 Yes [id number] Take one Univers 200 mcg 8-23 tablet ity of tablet 00:00: night [place] 00 before Medical procedure, Branch then take one tablet morning of procedure miSOPROStoL 2021-0 Yes [id number] Take one Univers 200 mcg 8-23 tablet ity of tablet 00:00: night [place] 00 before Medical procedure, Branch then take one tablet morning of procedure miSOPROStoL 2021-0 Yes [id number] Take one Univers 200 mcg 8-23 tablet ity of tablet 00:00: night [place] 00 before Medical procedure, Branch then take one tablet morning of procedure miSOPROStoL 2021-0 2021- No [id number] Take one Univers 200 mcg 8-23 09-21 tablet ity of tablet 00:00: 00:00 night [place] 00 :00 before Medical procedure, Branch then take one tablet morning of procedure miSOPROStoL 2021-0 2- No [id number] Take one Univers 200 mcg 8-23 -21 tablet ity of tablet 00:00: 00:00 night [place] 00 :00 before Medical procedure, Branch then take one tablet morning of procedure nystatin 2-0 Yes [id number] Apply to U nivers 100,000 8-11 area(s) 2 ity of unit/gram 00:00: (two) [place] cream 00 times Medical daily. Branch nystatin 2022-0 Yes [id number] Apply to U nivers 100,000 8-11 area(s) 2 ity of unit/gram 00:00: (two) [place] cream 00 times Medical daily. Branch nystatin 2-0 Yes [id number] Apply to U nivers 100,000 8-11 area(s) 2 ity of unit/gram 00:00: (two) [place] cream 00 times Medical daily. Branch nystatin 2-0 Yes [id number] Apply to U nivers 100,000 8-11 area(s) 2 ity of unit/gram 00:00: (two) [place] cream 00 times Medical daily. Branch nystatin 2-0 Yes [id number] Apply to U nivers 100,000 8-11 area(s) 2 ity of unit/gram 00:00: (two) [place] cream 00 times Medical daily. Branch Immunizations Ordered Filled Immunization Date Status Comments [facility] Immunization Name Name Influenza Virus 2021-11-29 Completed Universit y of Vaccine Quad IM, 00:00:00 [place] Me dical Preserv and ABX Branch Free [...] Time Observation Value Comments Source Systolic blood 2022-08-31 21:25:00 96 mm[Hg] Shefali Taylor - pressure External Diastolic blood 2022-08-31 21:25:00 50 mm[Hg] Valeria Taylor - pressure External Heart rate 2022-08-31 21:25:00 107 /min Shefali burksbold - External Body temperature 2022-08-31 21:25:00 37.72 Daiana Dayana Taylor - External Respiratory rate 2022-08-31 21:25:00 18 /min Dayana Taylor - External Body height 2022-08-31 21:25:00 154.9 cm Shefali burksbocheryl - External Body weight 2022-08-31 21:25:00 87.907 kg Shefali burksbocheryl - External BMI 2022-08-31 21:25:00 36.62 kg/m2 Shefali burksbocheryl - External Systolic blood 2021-10-27 18:49:00 94 mm[Hg] Univer sity of pressure [facility] Diastolic blood 2021-10-27 18:49:00 61 mm[Hg] Unive rsity of pressure [place] [facility] Heart rate 2021-10-27 18:49:00 88 /min Universi ty [facility] [place] Body temperature 2021-10-27 18:49:00 37 Daiana Univ ersity of [facility] Body height 2021-10-27 18:49:00 154.9 cm Universi ty [facility] [place] Body weight 2021-10-27 18:49:00 96.072 kg [facility] ty [facility] BMI 2021-10-27 18:49:00 40.02 kg/m2 [place] [facility] Branch Systolic blood 2021-10-02 18:49:00 101 mm[Hg] Univer sity of pressure [facility] Branch Diastolic blood 2021-10-02 18:49:00 65 mm[Hg] Unive rsity of pressure [facility] Branch Heart rate 2021-10-02 18:49:00 78 /min Universi ty [facility] Body temperature 2021-10-02 18:49:00 36.11 Daiana Univ ersity of [facility] Respiratory rate 2021-10-02 18:49:00 17 /min Univ ersity of [facility] Branch Body height 2021-10-02 18:49:00 154.9 cm [facility] Body weight 2021-10-02 18:49:00 98.062 kg [facility] BMI 2021-10-02 18:49:00 40.85 kg/m2 [facility] Oxygen saturation in 2021-10-02 18:49:00 98 /min University Arterial blood by [facility] Pulse oximetry Branch Procedures Procedure Date / Time Performed Performing Clinician [facility] 2021-11-29 05:01:00 Doctor Unassigned, No Univer [facility] ULTRASOUND Name Medical [place] EXTERNAL PROVIDER 2021 05:01:00 Doctor Unassigned, No Univ [facility] En[facility]ters Start End Encounter Admission Attending Care Care Encounter Source Date/Time Date/Time Type Type Clinicians Facility Department ID 2022-09-19 2022-09-19 Outpatient SHEFALI ASTORGA [id number] Shefali 10:00:00 10:00:00 RONI Seybol d 2022-09-01 2022-09-01 Outpatient SHEFALI ASTORGA [id number] Shefali 00:00:00 00:00:00 RONI Seybol d 2022-08-31 2022-08-31 Outpatient LAB90 SHEFALI JAQUEZ [id number] Shefali 17:15:00 17:15:00 Seybol d 2022-08-31 2022-08-31 Outpatient SHEFALI ASTORGA [id number] Shefali 16:30:00 16:30:00 RONI Seybol d 2022-08-31 2022-08-31 Outpatient PRESHEFALI CRAWFORD [id number] Shefali 00:00:00 00:00:00 DIAN Seybol d 2022-08-31 2022-08-31 Outpatient SHEFALI ASTORGA [id number] Shefali 00:00:00 00:00:00 RONI Seybol d 2022-08-25 2022-08-25 Outpatient TRICIA VALENZUELA [facility] [id number] Univers 15:00:00 15:00:00 itjessi [facility] 2022-08-25 2022-08-25 Out[facility] [id number] Univers 15:00:00 15:00:00 ity of [facility] 2022-06-22 2022-06-22 Telephone Capo GOMEZChad 1.2.840.114 [id number] Univers 00:00:00 00:00:00 , Abbi MACDONALD [id number] [id number] [id number] [facility] 086 [place] 2022-01-05 2022-01-05 Outpatient R VALENTINA TRICIA [facility] [id number] Univers 09:00:00 09:00:00 ity of [facility] 2021-12-06 2021-12-06 Telephone Valentina [facility] [id number] Univers 00:00:00 00:00:00 Cam [place] [id number] i ty of [place] PROFESS[place] [id number] [address] 2021-11-30 2021-11-30 Case Valentina [facility] [id number] Univers 00:00:00 00:00:00 Management Cam MAYCOL [id number] ity of [place] [id number] [id number] [place] dic[address] 2021-11-29 2021-11-29 Outpatient R VALENTINA TRICIA [facility] [id number] Univers 09:00:00 10:24:09 ity of [facility] 2021-11-29 2021-11-29 Orders Doctor FRANKIE 1.2.840.114 [id number] Univers 00:00:00 00:00:00 Only Unassigned, DEISY 350.1.13.10 ity of [place] [facility] [id number] Bharat as [id number] [facility] 009 [place] 2021-10-27 2021-10-27 Outpatient R LACI [facility] [id number] Univers 13:15:00 14:25:01 LEANN ity [facility] 2021-10-27 2021-10-27 [facility] [id number] Univers 13:15:00 14:25:01 Visit Leannmarian SEVERINO [id number] i ty [facility] 4.2.[place] [id number] [address] 2021-10-27 2021-10-27 Outpatient R TRICIA MONTGOMERY [facility] [id number] Univers 09:00:00 09:00:00 ity of [facility] 2021-10-27 2021-10-27 Telephone [facility] 1.2.840.114 [id number] Univers 00:00:00 00:00:00 Leannmarian SEVER[place] [id number] i ty [place] [id number] [address] 2021 2021 Orders Doctor FRANKIE 1..840.114 [id number] Univers 00:00:00 00:00:00 Only Unassigned, DEISY 350.1.13.10 ity of [place] [facility] 4.2.7.2.686 Bharat as [phone] [address] 2021-10-02 2021-10-02 Outpatient R TRISHA [facility] [id number] Univers 13:40:00 14:11:51 [facility] ity [facility] 2021-10-02 2021-10-02 Urgent Melody Pruitt [facility] 1..840.114 [id number] Univers 13:40:00 14:11:51 Care Raymoncorin [facility] [id number] ity of [place] [id number] Bharat as JENAE?BLEA [phone] [address] MEDICAL OFFICE BUILDING 2021-09-14 2021-09-14 Telephone Tricia Montgomery [facility] 1.2.840.114 [id number] Univers 00:00:00 00:00:00 Roman SEVERINO [id number] i ty of [facility] 4.2.7.2.[place] [id number] [address] 2021-08-25 2021-08-25 Jacquard Twine Polisher Operator 2, Adc Lab [facility] 1.2.840.114 [id number] Univers 11:30:00 11:45:00 Visit Leann Aguero 350.1.13.10 ity of [place]2.[place] [id number] [facility] 353 [facility] 2021-08-25 2021-08-25 [facility] [id number] Univers 10:00:00 10:31:00 LEANN ity [facility] 2021-08-25 2021-08-25 Office [facility] [id number] Univers 10:00:00 10:31:00 Visit Leann SEVERINO 350.1.13.10 i ty of [place] 4[place].2.[place] [id number] [address] 2021-08-25 2021-08-25 Outpatient R LACI [facility] [id number] Univers 10:00:00 10:31:00 LEANN ity [facility] 2021-08-25 2021-08-25 Letter Doctor FRANKIE 1.2.840.114 [id number] Univers 00:00:00 00:00:00 (Out) Unassigned, DEISY 350.1.13.10 ity of [place] [facility] 4.2.7.2.686 Bharat as [id number] [address] 2021-08-25 2021-08-25 Telephone [facility] 1.2.840.114 [id number] Univers 00:00:00 00:00:00 Leann SEVERINO 350.1.13.10 i ty of [place] [id number] [address] 2021-08-25 2021-08-25 Orders Doctor FRANKIE 1.2.840.114 [id number] Univers 00:00:00 00:00:00 Only Unassigned, DEISY 350.1.13.10 ity of [place] [facility] 4.2.7.2.686 Bharat as [id number] [place] [address] Branch 2021-05-27 2021-05-27 Urgent Karen Walter [facility] 1.2.840. 114 [id number] Univers 17:00:00 17:57:09 Care John Bolivar [facility] [id number] ity of [place] [id number] Bharat as JENAE?BLEA [id number] [place] dic[address] MEDICAL OFFICE BUILDING 2021-05-27 2021-05-27 Outpatient R JOHN [facility] [id number] Univers 17:00:00 17:57:09 BOLIVAR ocampo o f [facility] 2021-05-27 2021-05-27 Orders Doctor DAVID 1.2.840.114 [id number] Univers 00:00:00 00:00:00 Only Unassigned, DEISY 350.1.13.10 ity of [place] [facility] 4.2.7.2.686 Bharat as [phone] [address] Results This patient has no known results. Notes Date/Time Note Provider Source 2022-08-31 16:30:47-00:00 Formatting of this note is d ifferent from the original. [facility] Chief Complaint Patient presents with Establish Care Pelvic Pain Pelvic pain and pressure Shikha Moses CMA I
[2022-09-01 17:39] LABS: Absolute Lymphocytes (CBC) 4.3 K/uL (0.7-4.9); Hematocrit 39.8 % (36.0-45.0); Lymphocytes % 32.5 % (15.3-44.8); MCV 94.5 fL (80-100); MPV 6.7 fL (7.6-11.3); RBC Red Blood Cell Count 4.21 M/uL (3.86-4.86)
[2022-09-01 17:52] LABS: Protime INR 0.87
[2022-09-01 17:53] LABS: Potassium 3.6 mEq/L (3.5-5.1)
[2022-09-01] MEDS ORDERED: NA CHLORIDE 0.9% 1,000 ML ONE (17:55)
[2022-09-01] MEDS ORDERED: KETOROLAC 30 MG/ML INJ ONE (17:55)
--- NOTE | 2022-09-01 18:44 | RAD REPORT ---
EXAM DESCRIPTION: US - Transvaginal Study Probe - 09/01/2022 6:35 pm CLINICAL HISTORY: pelvic pain Pelvic pain. COMPARISON: No comparisons FINDINGS: The uterus is normal in size, shape and echotexture. The uterus measures 9.8 cm . An IUD i s identified transabdominally. Approximately 3 cm mixed echogenicity structure in the uterine fundus with calcifications likely a intramural fibroid. The endometrial stripe measures 9 mm, within normal limits for age Both ovaries are normal in size, shape and echotexture. The right ovary measures 14.7 cc. The left ovary measures 13.6 cc. No ovarian or parovarian lesions. No adnexal masses. Normal Doppler blood flow was demonstrated to both ovaries. No significant pelvic ascites. IMPRESSION: IUD. Bilateral ovarian blood flow. Probable intramural fibroid.
--- NOTE | 2022-09-01 19:41 | EDPHYS ---
Physician Documentation [facility] Name: Faye Argueta Age: 36 yrs Sex: Female : 1985 Arrival Date: 09/01/2022 Time: 16:44 Bed 17 Private MD: ED Physician Farhat Simpson HPI: 09/01 17:08 This 36 yrs old Female presents to ER via Ambulatory with complaints of Pelvic cp Pain. 17:08 The patient presents with vaginal bleeding that is heavy, with clots. Onset: The cp symptoms/episode began/occurred today. Associated signs and symptoms: Pertinent positives: lower abdomen and pelvic pain. 17:08 The patient is sexually active. The patient's method of control includes IUD with cp replacement in October of 2021. Patient is a 36-year-old female with no significant past medical history who presents to the emergency department with complaints of vaginal bleeding. The patient complains of lower abdominal and pelvic pain. Patient reports initial placement of an IUD of an IUD many years ago that was subsequently replaced in October of last year. Patient reports she has not had a menstrual cycle for the past 7 years and about 3 weeks ago she had vaginal bleeding that lasted about 2 weeks and then resolved but reports vaginal bleeding that returned today with lower abdomen and pelvic pain. Patient reports she is currently on Amoxicillin for upper respiratory infection and has felt feverish but has not measured a fever. Historical: - Allergies: 16:52 No Known Allergies; aa5 - PMHx: 16:52 None; aa5 - PSHx: 16:52 Bladder; section; aa5 - Immunization history:: Adult Immunizations unknown. - Social history:: Smoking status: unknown. ROS: 17:10 Constitutional: Negative for body aches, chills, fever, poor PO intake. cp 17:10 Eyes: Negative for injury, pain, redness, and discharge. cp 17:10 Respiratory: Negative for cough, shortness of breath, wheezing. 17:10 Abdomen/GI: Positive for abdominal pain, of the lower abdomen, Negative for vomiting, diarrhea, constipation. 17:10 Back: Negative for radiated pain. 17:10 : Positive for pelvic pain, vaginal bleeding, Negative for urinary symptoms. 17:10 Neuro: Negative for altered mental status, dizziness, headache, syncope, weakness. 17:10 All other systems are negative. Exam: 17:15 Constitutional: The patient appears in no acute distress, alert, awake, non-toxic, well cp developed, well nourished, uncomfortable. 17:15 Head/Face: Normocephalic, atraumatic. cp 17:15 Eyes: Periorbital structures: appear normal, Conjunctiva: normal, no exudate, no cp injection, Sclera: no appreciated abnormality, Lids and lashes: appear normal, bilaterally. 17:15 ENT: External ear(s): are unremarkable, Nose: is normal, Mouth: Lips: moist, Oral mucosa: pink and intact, moist, Posterior pharynx: is normal, airway is patent, no erythema, no exudate. 17:15 Neck: External neck: is normal, ROM/movement: is normal, is supple, without pain, no range of motions limitations. 17:15 Chest/axilla: Inspection: normal. cp 17:15 Cardiovascular: Rate: normal, Rhythm: regular. 17:15 Respiratory: the patient does not display signs of respiratory distress, Respirations: normal, no use of accessory muscles, no retractions, labored breathing, is not present, Breath sounds: are clear throughout, no decreased breath sounds, no stridor, no wheezing. 17:15 Abdomen/GI: Inspection: obese Bowel sounds: active, all quadrants, Palpation: soft, in all quadrants, moderate abdominal tenderness, in the suprapubic area, right lower quadrant and left lower quadrant, rebound tenderness, is not appreciated, involuntary guarding, is not appreciated. 17:15 Back: CVA tenderness, is absent. 17:15 Neuro: Orientation: to person, place \T\ time. Mentation: is normal. Vital Signs: 16:50 BP 120 / 57; Pulse 88; Resp 18 S; Temp 98(TE); Pulse Ox 100% on R/A; aa5 17:26 BP 108 / 60; Pulse 78; Resp 18; Pulse Ox 99% on R/A; db 18:00 BP 101 / 51; Pulse 83; Resp 16; Pulse Ox 97% on R/A; db 18:42 BP 105 / 59; Pulse 72; Resp 16; Pulse Ox 100% on R/A; db 19:45 BP 107 / 57; Pulse 75; Resp 18 S; Pulse Ox 99% on R/A; ha1 MDM: 16:50 Patient medically screened. cp 17:30 Differential diagnosis: appendicitis, dysmenorrhea, molar preganancy, nonspecific cp abdominal pain, pelvic inflammatory disease, urinary tract infection, vaginosis. 19:40 Data reviewed: vital signs, nurses notes, lab test result(s), radiologic studies, cp ultrasound. 19:40 Consideration of Admission/Observation Escalation of care including cp admission/observation considered. I considered the following discharge prescriptions or medication management in the emergency department Medications were administered in the Emergency Department. See MAR. Counseling: I had a detailed discussion with the patient and/or guardian regarding: the historical points, exam findings, and any diagnostic results supporting the discharge/admit diagnosis, lab results, radiology results, the need for outpatient follow up, for definitive care, an OB/Gyne specialist, to return to the emergency department if symptoms worsen or persist or if there are any questions or concerns that arise at home. Special discussion: Based on the patient's Hx, exam, and Dx evaluation, there is no indication for emergent surgery or inpatient Tx. It is understood by the patient/guardian that if the Sx's persist or worsen they need to return immediately for re-evaluation. 09/01 17:08 Order name: Basic Metabolic Panel; Complete Time: 18:48 cp 09/01 18:48 Interpretation: Normal except: GLUC 112; CA 8.1. cp 09/01 17:08 Order name: CBC with Diff; Complete Time: 18:48 cp 09/01 18:48 Interpretation: Normal except: WBC 13.30; MPV 6.7; EOSINOPHIL % 4.9; EOSA 0.6. cp 09/01 17:08 Order name: Test, Serum; Complete Time: 18:48 cp 09/01 17:08 Order name: PT-INR; Complete Time: 18:48 cp 09/01 18:34 Order name: Transvaginal Study Probe; Complete Time: 18:48 EDMS 09/01 17:08 Order name: IV Saline Lock; Complete Time: 17:29 cp 09/01 17:08 Order name: Labs collected and sent; Complete Time: 17:29 cp 09/01 17:08 Order name: NPO; Complete Time: 17:29 cp Administered Medications: 17:40 Drug: Ketorolac IVP 15 mg Route: IVP; Site: left antecubital; db 17:40 Drug: NS 0.9% IV 1000 ml Route: IV; Rate: 1 bolus; Site: left antecubital; db Disposition: 17:10 Co-signature as Attending Physician, Farhat Simpson DO I was immediately available on-site ms3 in the Emergency Department for consultation in the care of the patient. Disposition Summary: 09/01/22 19:41 Discharge Ordered Location: Home cp Problem: new cp Symptoms: have improved cp Condition: Stable cp Diagnosis - Abnormal uterine and vaginal bleeding, unspecified cp Followup: cp - With: Private Physician - When: 2 - 3 days - Reason: Recheck today's complaints Discharge Instructions: - Discharge Summary Sheet cp - Abnormal Uterine Bleeding cp - Uterine Fibroids cp Forms: - Medication Reconciliation Form cp - Thank You Letter cp - Antibiotic Education cp - Prescription Opioid Use cp - Patient Portal Instructions cp Prescriptions: - medroxyprogesterone 10 mg Oral tablet - take 1 tablet by ORAL route daily for 5 days; 5 tablet; Refills: 0, Product cp Selection Permitted - Ibuprofen 800 mg Oral Tablet - take 1 tablet by ORAL route every 8 hours As needed take with food; 30 tablet; cp Refills: 0, Product Selection Permitted Signatures: Dispatcher [employer] [facility] Eva Porras RN RN aa5 Brayan Henry PA PA cp Farhat Simpson DO DO ms3 Brittani Blackmon RN RN db Corrections: (The following items were deleted from the chart) 18:34 17:09 Pelvis Complete+US.RAD.BRZ ordered. [facility] 09/02 18:53 09/01 17:08 Patient is a 36-year-old female with no significant past medical history cp who presents to the emergency department with complaints of vaginal bleeding. The patient complains of lower abdominal and pelvic pain. Patient reports initial placement of an IUD of an IUD many years ago that was subsequently replaced in October of last year. Patient reports she has not had a menstrual cycle for the past 7 years and about 3 weeks ago she had vaginal bleeding that lasted about 2 weeks and then resolved but reports vaginal bleeding that returned today with lower abdomen and pelvic pain. cp
--- NOTE | 2022-09-01 19:41 | ER ---
Nurse's Notes [facility] Name: Faye Argueta Age: 36 yrs Sex: Female : 1985 Arrival Date: 09/01/2022 Time: 16:44 Bed 17 Private MD: Diagnosis: Abnormal uterine and vaginal bleeding, unspecified Presentation: 09/01 16:50 Chief complaint: Patient states: "I have an IUD and I haven't had my period for about 7 aa5 years now but about 3 weeks ago I started bleeding and I bleed for 2 weeks (vaginal bleeding)". Pt reports pelvic pain today and started having vaginal bleeding again today. Currently taking amoxicillin for sinus infection. Coronavirus screen: At this time, the client does not indicate any symptoms associated with coronavirus-19. Ebola Screen: Patient denies travel to an Ebola-affected area in the 21 days before illness onset. Initial Sepsis Screen: Does the patient meet any 2 criteria? No. Patient's initial sepsis screen is negative. Does the patient have a suspected source of infection? No. Patient's initial sepsis screen is negative. Risk Assessment: Do you want to hurt yourself or someone else? Patient reports no desire to harm self or others. Onset of symptoms was August 2022. 16:50 Acuity: ANIYAH 3 aa5 16:50 Method Of Arrival: Ambulatory aa5 Historical: - Allergies: 16:52 No Known Allergies; aa5 - PMHx: 16:52 None; aa5 - PSHx: 16:52 Bladder; section; aa5 - Immunization history:: Adult Immunizations unknown. - Social history:: Smoking status: unknown. Screenin:26 [facility] ED Fall Risk Assessment (Adult) History of falling in the last 3 months, db including since admission No falls in past 3 months (0 pts) Confusion or Disorientation No (0 pts) Intoxicated or Sedated No (0 pts) Impaired Gait No (0 pts) Mobility Assist Device Used No (0 pt) Altered Elimination No (0 pt) Score/Fall Risk Level 0 - 2 = Low Risk Oriented to surroundings, Maintained a safe environment. Abuse screen: Denies threats or abuse. Denies injuries from another. Nutritional screening: No deficits noted. Tuberculosis screening: No symptoms or risk factors identified. Assessment: 17:26 Reassessment: Patient appears in no apparent distress at this time. Patient and/or db family updated on plan of care and expected duration. Pain level reassessed. Patient is alert, oriented x 3, equal unlabored respirations, skin warm/dry/pink. General: Appears in no apparent distress. comfortable, Behavior is calm, cooperative. Pain: Complains of pain in pelvis. Neuro: Level of Consciousness is awake, alert, obeys commands, Oriented to person, place, time, situation. Respiratory: Airway is patent Respiratory effort is even, unlabored, Respiratory pattern is regular, symmetrical. : Reports vaginal bleeding that is. 18:51 Reassessment: Patient appears in no apparent distress at this time. Patient and/or db family updated on plan of care and expected duration. Pain level reassessed. Patient is alert, oriented x 3, equal unlabored respirations, skin warm/dry/pink. 18:52 Reassessment: Patient states feeling better. Patient states symptoms have improved. db 18:54 Reassessment: PATIENT AMBULATORY TO RESTROOM. db 19:43 General: Appears comfortable, Behavior is calm, cooperative. Pain: Complains of pain in ha1 pelvis Pain currently is 3 out of 10 on a pain scale. Neuro: Level of Consciousness is awake, alert, obeys commands, Oriented to person, place, time, situation. Cardiovascular: Patient's skin is warm and dry. Respiratory: Airway is patent Respiratory effort is even, unlabored, Respiratory pattern is regular, symmetrical. GI: Abdomen is round non-distended, Bowel sounds present X 4 quads. : Reports vaginal bleeding that is bright red, moderate flow. Derm: Skin is pink, warm \\T\\ dry. Musculoskeletal: Circulation, motion, and sensation intact. Range of motion: intact in all extremities. Vital Signs: 16:50 BP 120 / 57; Pulse 88; Resp 18 S; Temp 98(TE); Pulse Ox 100% on R/A; aa5 17:26 BP 108 / 60; Pulse 78; Resp 18; Pulse Ox 99% on R/A; db 18:00 BP 101 / 51; Pulse 83; Resp 16; Pulse Ox 97% on R/A; db 18:42 BP 105 / 59; Pulse 72; Resp 16; Pulse Ox 100% on R/A; db 19:45 BP 107 / 57; Pulse 75; Resp 18 S; Pulse Ox 99% on R/A; ha1 ED Course: 16:46 Patient arrived in ED. am2 16:47 Brayan Henry PA is PHCP. cp 16:47 Farhat Simpson DO is Attending Physician. cp 16:50 Arm band placed on. aa5 16:52 Triage completed. aa5 17:02 Brittani Blackmon, RN is Primary Nurse. db 17:24 Inserted saline lock: 20 gauge in left antecubital area, using aseptic technique. Blood db collected. 17:26 Patient has correct armband on for positive identification. Bed in low position. Call db light in reach. Side rails up X 1. Pulse ox on. NIBP on. Warm blanket given. 18:37 Transvaginal Study Probe In Process Unspecified. EDMS 19:54 No provider procedures requiring assistance completed. IV discontinued, intact, ha1 bleeding controlled, No redness/swelling at site. Pressure dressing applied. 19:56 Provided Education on: following up with OB. ha1 Administered Medications: 17:40 Drug: Ketorolac IVP 15 mg Route: IVP; Site: left antecubital; db 17:40 Drug: NS 0.9% IV 1000 ml Route: IV; Rate: 1 bolus; Site: left antecubital; db Medication: 17:29 VIS not applicable for this client. db Outcome: 19:41 Discharge ordered by MD. cp 19:54 Discharged to home ambulatory, with family. ha1 19:54 Condition: stable 19:54 Discharge instructions given to patient, Instructed on discharge instructions, follow up and referral plans. medication usage, Demonstrated understanding of instructions, follow-up care, medications, Prescriptions given X 2. 19:57 Patient left the ED. ha1 Signatures: Dispatcher [employer] EDMS Eva Porras, RN RN aa5 Brayan Henry PA PA cp Sada Shields am2 Jennifer Sanchez RN RN ha1 Brittani Blackmon, RN RN db Corrections: (The following items were deleted from the chart) 16:53 16:50 Chief complaint: Patient states: "I have an IUD and I haven't had my period for aa5 about 7 years now but about 3 weeks ago I started bleeding and I bleed for 2 weeks (vaginal bleeding)". Pt reports pelvic pain today and started having vaginal bleeding again today. aa5
[2022-09-01 20:24] VITALS: TEMP 98
[2022-09-01 20:38] VITALS: BP 107/57; O2SAT 99
== END 2022-09-01 19:57 | disposition home or self-care (01) ==
LOC: ER 16:44
DX: N93.9 Abnormal uterine and vaginal bleeding, unspecified (principal)
CPT/HCPCS: 85025; 80048; 36415; 84703; 85610; 76830; 96374; 99284; J7030

== ENCOUNTER 2023-10-04 03:54 | Emergency (ER) | payer SELFPAY ==
--- OUTSIDE RECORDS SUMMARY | 2023-10-04 03:58 | XMS REPORT | Continuity of Care Document ---
Author Name Unknown Address [address] [facility] [address] [place] [address] [facility] thconnect Address [address] [facility] [place] [address] Care Team Providers Care Software Reliability Engineer Name Role Phone Pcp, Patient Does Not Have A Primary Care Physic leanne Hasmukh Roberts Attending Clinician [phone] HASMUKH ROGER Attending Clinician Unavailable RENETTA FISHER Attending Clinician RENETTA Phillips Attending Clinician CAMRYN Mirza Attending Clinician Unavailab le LAB90 Attending Clinician Unavailable BO GARZA Attending Clinician Unavailable CLARK DICKERSON Attending Clinician Unavailable DIAN WALSH Attending Clinician Unavailable MD STEPHANY Attending Clinician Unavailab RONI Church Attending Clinician Unavailable LAB45 Attending Clinician Unavailable TRICIA MONTGOMERY Attending Clinician Unavailable Abbi Scanlon RN Attending Clinician Tricia Joseph MD Attending Clinician [phone] Doctor Unassigned, [place] Attending Clinician U LEANN Gutierrez Attending Clinician Unavailable Leann Aguero PA-C Attending Clinician [phone] LEE RICO Attending Clinician Unavailable Melody Ramos Attending Clinician Lee May Attending Clinician [phone], [facility] Attending Clinician Unavailable Karen Monzon Attending Clinician [phone] Bolivar Rojas Attending Clinician [phone] BOLIVAR NO Attending Clinician Unavailab le Payers Payer Name Policy Type Policy Number Effective Date Expirati on Date Source CARLOS SOMMER [facility]: O [employer] 94 ON STAND 9 [id number] 2022 00:00:00 [facility] [id number] 2021 00:00:00 Problems Condition Name Condition Details Condition Category Status Onset Date Resolution Date Last Treatment Date Treating Clinician Comments Source Morbid obesity with body mass index of 40.0-49.9 Morbid obesity with body mass index of 40.0-49.9 Disease Active 7-20 00:00: 00 [facility] Presence of intrauteri ne contracept ruel device Presence of intrauteri ne contracept ruel device Disease Resolve d 2021-02 0-24 00:00: 00 2023-10-02 00:00:00 2023-10-02 09:08:21 [facility] Allergies, Adverse Reactions, Alerts Allergy Name Allergy Type Status Severity Reaction(s) Onset Date Inactive Date Treating Clinician Comments Source NO KNOWN ALLERGIE S Drug Class Active [facility] Social History Social Habit Start Date Stop Date Quantity Comments Source [facility] History of tobacco use Cigarette Smoker [facility] History SDOH Alcohol Frequency [facility] History SDOH Alcohol Std [facility]inks [facility] History SDOH Alcohol Binge [facility] Gender identity Dayana Taylor - External Alcoholic beverage intake 2023-10-02 00:00:00 2023-10-02 00:00:00 Current drinker of alcohol (finding) [facility] History of Social function 2023-10-02 00:00:00 2023-10-02 00:00:00 [facility] Tobacco use and exposure 2023-10-02 00:00:00 2023-10-02 00:00:00 Smokeless tobacco non-user [facility] Alcohol intake 2022-12-05 00:00:00 2022-12-05 00:00:00 .14 /d Shefali Taylor - External Cigarette pack-years 2022-09-19 00:00:00 2022-09-19 00:00:00 Shefali Taylor - External Cigarettes smoked current (pack per day) - Reported 2022-09-19 00:00:00 2022-09-19 00:00:00 Shefali Taylor - External Alcohol Comment 2022-08-31 00:00:00 2022-08-31 00:00:00 socially Shefali Robertson Exposure to SARS-CoV-2 (event) 2021-11-19 00:00:00 2021-11-29 08:41:00 Not sure [facility] Sex Assigned At 1985 00:00:00 1985 00:00:00 Shefali Robertson Smoking Status Start Date Stop Date Source Smokes tobacco daily 2023-10-02 00:00:00 [facility] Medications Ordered Medication Name Filled Medication Name Start Date Stop Date Current Medication? Ordering Clinician Indication Dosage Frequency Signature (SIG) Comments Components Source metFORMIN 500 mg tablet 10-02 00:00: 00 Yes [id number] 500mg Take 1 tablet by mouth in the morning and 1 tablet in the evening. Take with meals. [facility] Diclofenac Sodium 75 MG oral Tablet Delayed Response 2022-02 00:00: 00 Yes [id number] 9108 75mg Take 1 tablet (75 mg total) by mouth 2 times daily. Shefali moulton predniSONE (DELTASONE) 20 MG oral tablet 2022-02 00:00: 00 Yes [id number] 9108 20mg Take 1 tablet (20 mg total) by mouth daily. Shefali moulton predniSONE (DELTASONE) 20 MG oral tablet -18 00:00: 00 12-05 00:00 :00 No [id number] 9108 20mg Take 1 tablet (20 mg total) by mouth daily. Shefali moulton miSOPROStol (CYTOTEC) 200 MCG oral Tablet 10-05 00:00: 00 12-05 00:00 :00 No [id number] 200ug Take 1 tablet (200 mcg total) by mouth See Admin Instructio ns Take 1 tablet (200 mcg) by mouth at bedtime the night before the procedure. Take the second pill by mouth 4 hours prior to the procedure. . Shefali moulton Gabapentin 100 MG oral Capsule 09-19 00:00: 00 Yes [id number] 9102 300mg Q.[id number] 3D Take 3 capsules (300 mg total) by mouth 3 times daily as needed Shefali moulton Diclofenac Sodium 75 MG oral Tablet Delayed Response 09-19 00:00: 00 12-05 00:00 :00 No [id number] 75mg Take 1 tablet (75 mg total) by mouth 2 times daily Shefali moulton Amoxicillin -Pot Clavulanate 875-125 MG oral Tablet 08-31 00:00: 00 Yes [id number] 1{tbl} Take 1 tablet by mouth 2 times daily Shefali moulton TRIMETHOPRI M-POLYMYXIN B 84756-5.1 UNIT/ML-% ophthalmic Solution 08-31 00:00: 00 12-05 00:00 :00 No [id number] 9102 1[drp] Apply 1 drop to eye every 4 (four) hours Shefali moulton Meloxicam 7.5 MG oral Tablet 08-17 00:00: 00 Yes TAKE ONE (1) TABLET(S) BY MOUTH ONCE A DAY FOR PAIN. Shefali moulton Gabapentin 100 MG oral Capsule 08-17 00:00: 00 Yes TAKE ONE (1) CAPSULE(S) BY MOUTH THREE TIMES A DAY FOR PAIN CONTROL. Shefali moulton fluconazole (DIFLUCAN) 200 mg tablet 2021-02 00:00: 00 Yes [id number] 200mg Take 1 tablet by mouth in the morning. [facility] No known medications 2021-02 14:57: 23 No No known medication s [facility] miSOPROStoL 200 mcg tablet 10-27 00:00: 00 Yes [id number] Take one tablet night before procedure, then take one tablet morning of procedure [facility] metroNIDAZO LE 500 mg tablet 10-27 00:00: 00 Yes [id number] 500mg Take 1 tablet by mouth every 12 (twelve) hours. [facility] fluconazole 150 mg tablet 10-27 00:00: 00 10-28 04:59 :00 No [id number] 150mg Take 1 tablet by mouth once now for 1 dose. [facility] miSOPROStoL 200 mcg tablet 09-28 00:00: 00 10-27 00:00 :00 No [id number] Take one tablet night before procedure, then take one tablet morning of procedure [facility] nystatin 100,000 unit/gram cream 09-16 00:00: 00 Yes [id number] Apply to area(s) 2 (two) times daily. [facility] Immunizations Ordered Immunization Name Filled Immunization Name Date Status Comments Source Influenza Virus Vaccine Quad IM, Preserv and ABX Free 6 MO-64 YRS 2021-11-29 00:00:00 Completed [facility] Influenza Virus Vaccine Quad IM, Preserv and ABX Free 6 MO-64 YRS 2021-11-29 00:00:00 Completed [facility] Influenza Virus Vaccine Quad IM, Preserv and ABX Free 6 MO-64 YRS 2021-11-29 00:00:00 Completed [facility] Influenza Virus Vaccine Quad IM, Preserv and ABX Free 6 MO-64 YRS 2021-11-29 00:00:00 Completed [facility] Influenza Virus Vaccine Quad IM, Preserv and ABX Free 6 MO-64 YRS 2021-11-29 00:00:00 Completed [facility] Influenza, Injectable, Mdck, Preservative Free, Quadrivalt 2021-11-29 00:00:00 Completed Shefali Taylor - External Influenza Virus Vaccine Quad IM, Preserv and ABX Free 6 MO-64 YRS (FLUCELVAX) Unknown Completed [facility] Influenza Virus Vaccine Quad IM, Preserv and ABX Free 6 MO-64 YRS (FLUCELVAX) Unknown Completed [facility] Influenza, Injectable, Mdck, Preservative Free, Quadrivalent Unknown Completed Shefali Dicksonold - External Vital Signs Vital Name Observation Time Observation Value Comments Christiano ugerrero Systolic blood pressure 2023-10-02 12:58:00 95 mm[Hg] [facility] Diastolic blood pressure 2023-10-02 12:58:00 63 mm[Hg] [facility] Heart rate 2023-10-02 12:58:00 82 /min [facility] Body temperature 2023-10-02 12:58:00 35.56 Daiana [facility] Respiratory rate 2023-10-02 12:58:00 18 /min [facility] Body height 2023-10-02 12:58:00 154.9 cm [facility] Body weight 2023-10-02 12:58:00 103.828 kg [facility] BMI 2023-10-02 12:58:00 43.25 kg/m2 [facility] Systolic blood pressure 2022-12-05 19:14:00 118 mm[Hg] Shefali Seybo ld - External Diastolic blood pressure 2022-12-05 19:14:00 84 mm[Hg] Shefali Seybo ld - External Heart rate 2022-12-05 19:14:00 72 /min Kelse y Seybold - External Body temperature 2022-12-05 19:14:00 36.78 Daiana Shefali Seybold - External Respiratory rate 2022-12-05 19:14:00 16 /min Shefali Seybold - External Body height 2022-12-05 19:14:00 154.9 cm Dayana ey Seybold - External Body weight 2022-12-05 19:14:00 92.704 kg Dayana ey Seybold - External BMI 2022-12-05 19:14:00 38.62 kg/m2 Dayana ey Seybold - External Oxygen saturation in Arterial blood by Pulse oximetry 2022-12-05 19:14:00 98 /min Shefali Seybo ld - External Systolic blood pressure 2022-09-15 18:30:00 120 mm[Hg] Shefali Seybo ld - External Diastolic blood pressure 2022-09-15 18:30:00 60 mm[Hg] Shefali Gunterybo ld - External Heart rate 2022-09-15 18:30:00 68 /min Kelse y Seybold - External Body temperature 2022-09-15 18:30:00 36.72 Daiana Shefali Seybold - External Respiratory rate 2022-09-15 18:30:00 16 /min Shefali Seybold - External Body height 2022-09-15 18:30:00 154.9 cm Dayana ey Seybold - External Body weight 2022-09-15 18:30:00 86.728 kg Dayana ey Seybold - External BMI 2022-09-15 18:30:00 36.13 kg/m2 Dayana ey Seybold - External Systolic blood pressure 2022-08-31 21:25:00 96 mm[Hg] Shefali Seybo ld - External Diastolic blood pressure 2022-08-31 21:25:00 50 mm[Hg] Shefali Gunterybo ld - External Heart rate 2022-08-31 21:25:00 107 /min Navidse y Seybold - External Body temperature 2022-08-31 21:25:00 37.72 Diaana Shefali Seybold - External Respiratory rate 2022-08-31 21:25:00 18 /min Shefali Seybold - External Body height 2022-08-31 21:25:00 154.9 cm Dayana ey Seybold - External Body weight 2022-08-31 21:25:00 87.907 kg Dayana ey Seybold - External BMI 2022-08-31 21:25:00 36.62 kg/m2 Dayana ey Seybold - External Systolic blood pressure 2021-10-27 18:49:00 94 mm[Hg] [facility] Diastolic blood pressure 2021-10-27 18:49:00 61 mm[Hg] [facility] Heart rate 2021-10-27 18:49:00 88 /min [facility] Body temperature 2021-10-27 18:49:00 37 Daiana [facility] Body height 2021-10-27 18:49:00 154.9 cm [facility] Body weight 2021-10-27 18:49:00 96.072 kg [facility] BMI 2021-10-27 18:49:00 40.02 kg/m2 [facility] Systolic blood pressure 2021-10-02 18:49:00 101 mm[Hg] [facility] Diastolic blood pressure 2021-10-02 18:49:00 65 mm[Hg] [facility] Heart rate 2021-10-02 18:49:00 78 /min [facility] Body temperature 2021-10-02 18:49:00 36.11 Daiana [facility] Respiratory rate 2021-10-02 18:49:00 17 /min [facility] Body height 2021-10-02 18:49:00 154.9 cm [facility] Body weight 2021-10-02 18:49:00 98.062 kg [facility] BMI 2021-10-02 18:49:00 40.85 kg/m2 [facility] Oxygen saturation in Arterial blood by Pulse oximetry 2021-10-02 18:49:00 98 /min [facility] Procedures Procedure Date / Time Performed Performing Clinician Source POCT GLUCOSE(AGE >30DAYS) 2023-10-02 14:23[facility] (A1C) 2023-10-02 14:18:00 Kana [facility] HIV 1/2 AG-AB WITH REFLEX 2023-10-02 14:18:00 Kana [facility] PAP SMEAR-LIQUID BASED-CP 2023-10-02 14:18:00 Kana [facility] SYPHILIS IGG/IGM 2023-10-02 14:18:00 [facility] (AUTOMATED[facility] 2023-10-02 14:13:00 Kana [facility] POCT SARS-COV-2 ANTIGEN (BINAX NOW) 2023-10-02 13:25:00 Hasmukh Roger [facility] 2021-11-29 05:01:00 Doctor Unassigned, [place] [facility] EXTERNAL PROVIDER RECORDS 2021 05:01:00 Doctor Unassigned, [place] [facility] Encounters Start Date/Time End Date/Time Encounter Type Admission Type Attending Clinicians Care Facility Care Department Encounter ID Source 2023-10-03 00:00:00 2023-10-03 14:25:59 Telephone Kana [facility] [id number] 350.1.13.10 4.2.7.2.686 [id number] [facility] 2023-10-02 07:45:00 2023-10-02 09:19:40 Outpatient R HASMUKH ROGER [facility] [id number] [facility] 2023-10-02 07:45:00 2023-10-02 09:19:40 Office Visit Kana [facility] 1.2.840.114 350.1.13.10 4.2.7.2.686 [id number] [facility] 2023-09-29 13:45:00 2023-09-29 13:45:00 Outpatient R RENETTA RAINES MARISOL [facility] [id number] [facility] 2022-12-13 09:30:00 2022-12-13 09:30:00 Outpatient CAMRYN CONAWY [id number] [facility] 2022-12-09 00:00:00 2022-12-09 00:00:00 Outpatient CAMRYN CONWAY [id number] [facility] 2022-12-06 00:00:00 2022-12-06 00:00:00 Outpatient CAMRYN CONWAY [id number] [facility] 2022-12-06 00:00:00 2022-12-06 00:00:00 Outpatient CAMRYN CONWAY [id number] [facility] 2022-12-05 14:45:00 2022-12-05 14:45:00 Outpatient LAB90 SHEFALI JAQUEZ [id number] [facility] 2022-12-05 14:00:00 2022-12-05 14:00:00 Outpatient CAMRYN CONWAY SHEFALI JAQUEZ [id number] [facility] 2022-11-04 09:30:00 2022-11-04 09:30:00 Outpatient BO GARZA [id number] [facility] 2022-10-26 14:00:00 2022-10-26 14:00:00 Outpatient KAYLARONALDChad JAQUEZ [id number] [facility] 2022-10-24 14:30:00 2022-10-24 14:30:00 Outpatient CLARK DICKERSON [id number] [facility] 2022-10-24 00:00:00 2022-10-24 00:00:00 Out[id number] [facility] 2022-10-05 00:00:00 2022-10-05 00:00:00 Outpatient KAYLA BOMARIBEL JAQUEZ [id number] [facility] 2022-10-05 00:00:00 2022-10-05 00:00:00 Outpatient MD SHEFALI NIXON [id number] [facility] 2022-09-28 00:00:00 2022-09-28 00:00:00 Outpatient RONI ASTORGA [id number] [facility] 2022-09-19 10:00:00 2022-09-19 10:00:00 Outpatient RONI ASTORGA [id number] [facility] 2022-09-16 00:00:00 2022-09-16 00:00:00 Outpatient RONI ASTORGA [id number] [facility] 2022-09-15 14:15:00 2022-09-15 14:15:00 Outpatient LAB45 SHEFALI JAQUEZ [id number] [facility] 2022-09-15 13:30:00 2022-09-15 13:30:00 Outpatient BO GARZA SHEFALI [id number] [facility] 2022-09-01 00:00:00 2022-09-01 00:00:00 Outpatient RONI ASTORGA SHEFALI [id number] [facility] 2022-08-31 17:15:00 2022-08-31 17:15:00 Outpatient LAB90 SHEFALI SHEFALI [id number] [facility] 2022-08-31 16:30:00 2022-08-31 16:30:00 Outpatient RONI ASTORGA SHEFALI [id number] [facility] 2022-08-31 00:00:00 2022-08-31 00:00:00 Outpatient DIAN WALSH SHEFALI JAQUEZ [id number] [facility] 2022-08-31 00:00:00 2022-08-31 00:00:00 Outpatient RONI ASTORGA SHEFALI JAQUEZ [id number] [facility] 2022-08-25 15:00:00 2022-08-25 15:00:00 Outpatient TRICIA VALENZUELA [facility] [id number] [facility] 2022-08-25 15:00:00 2022-08-25 15:00:00 Outpatient TRICIA VALENZUELA [facility] [id number] [facility] 2022-06-22 00:00:00 2022-06-22 00:00:00 Telephone Abbi Scanlon ..840.114 350.1.13.10 4.2.7.2.686 [id number] [facility] 2022-01-05 09:00:00 2022-01-05 09:00:00 Outpatient TRICIA VALENZUELA [facility] [id number] [facility] 2021-12-06 00:00:00 2021-12-06 00:00:00 Telephone Tricia Montgomery [facility] ..840.114 350.1.13.10 4.2.7.2.686 [id number] [facility] 2021-11-30 00:00:00 2021-11-30 00:00:00 Case Management Tricia Montgomery [facility] 1.2.840.114 350.1.13.10 4.2.7.2.686 [id number] [facility] 2021-11-29 09:00:00 2021-11-29 10:24:09 Outpatient R VALENTINATRICIA [facility] [id number] [facility] 2021-11-29 00:00:00 2021-11-29 00:00:00 Orders Only Doctor Unassigned, [place] [facility] [id number] 350.1.13.10 4.2.7.2.686 [id number] [facility] 2021-10-27 13:15:00 2021-10-27 14:25:01 [facility] [id number] 2021-10-27 13:15:00 2021-10-27 14:25:01 Office Visit Laci [facility] 1.2.840.114 350.1.13.10 4.2.7.2.686 [id number] [facility] 2021-10-27 09:00:00 2021-10-27 09:00:00 Outpatient R VALENTINATRICIA [facility] [id number] [facility] 2021-10-27 00:00:00 2021-10-27 00:00:00 Telephone Laci [facility] 1.2.840.114 350.1.13.10 4.2.7.2.686 [id number] [facility] 2021 00:00:00 2021 00:00:00 Orders Only Doctor Unassigned, [place] [id number] 350.1.13.10 4.2.7.2.686 [id number] [facility] 2021-10-02 13:40:00 2021-10-02 14:11:51 Outpatient Jade VINODAleksandar [facility] [id number] [facility] 2021-10-02 13:40:00 2021-10-02 14:11:51 Urgent Care GreenMelody Clarissa, [facility] 1.2.840.114 350.1.13.10 4.2.7.2.686 [id number] [facility] 2021-09-14 00:00:00 2021-09-14 00:00:00 Telephone Tricia Montgomery [facility] 1.2.840.114 350.1.13.10 4.2.7.2.686 [id number] [facility] 2021-08-25 11:30:00 2021-08-25 11:45:00 Mutton Puncher Visit 2, Adc Lab Leann Aguero [facility] 1.2.840.114 350.1.13.10 4.2.7.2.686 [id number] [facility] 2021-08-25 10:00:00 2021-08-25 10:31:00 Outpatient LEANN SEPULVEDA [facility] [id number] [facility] 2021-08-25 10:00:00 2021-08-25 10:31:00 Office Visit Laci Leann [facility] 1.2.840.114 350.1.13.10 4.2.7.2.686 [id number] [facility] 2021-08-25 10:00:00 2021-08-25 10:31:00 Outpatient R LEANN AGUERO [facility] [id number] [facility] 2021-08-25 00:00:00 2021-08-25 00:00:00 Letter (Out) Doctor Unassigned, [place] [facility] 1.2.840.114 350.1.13.10 4.2.7.2.686 [id number] [facility] 2021-08-25 00:00:00 2021-08-25 00:00:00 Telephone [facility] 1.2.840.114 350.1.13.10 4.2.7.2.686 [id number] [facility] 2021-08-25 00:00:00 2021-08-25 00:00:00 Orders Only Doctor Unassigned, [place] [facility] 1.2840.114 350.1.13.10 4.2.7.2.686 [id number] [facility] 2021-05-27 17:00:00 2021-05-27 17:57:09 Urgent Care Karen Walter Kimberly [facility] 1.2.840.114 350.1.13.10 4.2.7.2.686 [id number] [facility] 2021-05-27 17:00:00 2021-05-27 17:57:09 Outpatient BOLIVAR RAI [facility] [id number] [facility] 2021-05-27 00:00:00 2021-05-27 00:00:00 Orders Only Doctor Unassigned, [place] [facility] 1.2840.114 350.1.13.10 4.2.7.2.686 [id number] [facility] Results Test Description Test Time Test Comments Results Result Co mments Source [facility] >30[facility]10[facility] 14:23:00* Test Item Value Reference Range Interpretation Comme nts POCT Glu (age>30days) (test code = 3342) 203 mg/dL 70-110 A Lab Interpretation (test cod e = 00322-6) Abnormal [facility] SARS-[facility]2 ANTIGEN (BINAX NOW)2023-10-02 13:43:00* Test Item Value Reference Range Interpretation Comme nts POCT SARS-COV-2 ANTIGEN (test code = 36479-3) Not Detected Not Detected, See Comment On board controls acceptable with C Line (test code = 3574) Yes [facility] Notes Date/Time Note Provider Source 2023-10-03 14:25:21 Called pt, discussed results and poc. Pt verbalized understanding. Mariluz Bishop RN 10/03/23 2:25 PM Mariluz Bishop RN [facility] 2023-10-03 13:56:51 Called pt, no answer. Left vm. Mariluz Bishop RN 10/03/23 1:57 PM T [facility] 2023-10-03 11:20:04 Please make pt aware that her A1c was elevated at 7.5% (normal is <5.7%) and indicates that she is diabetic. Suggest starting metformin 500mg PO BID (sent to pharmacy), low carb diet, and moderate physical activity for at least 30 minutes a day. Strongly encourage establishment with a primary care provider for mgmt. If symptoms worsen, suggest going to ED for evaluation. ISAÍAS Mcknight 10/03/2023 11:36 AM T [facility] 2022-09-15 13:20:54 Formatting of this n ote is different from the original. Chief Complaint Patient presents with IUD Removal New Patient Consult Vita Portillo CMA II [facility] 2022-08-31 16:30:47 Formatting of this n ote is different from the original. Chief Complaint Patient presents with Establish Care Pelvic Pain Pelvic pain and pressure Shikha Moses CMA I [facility]
[2023-10-04] MEDS ORDERED: ONDANSETRON 4 MG/2 ML VIAL ONE (04:17)
[2023-10-04] MEDS ORDERED: FENTANYL CITR 100 MCG/2 ML ONE (04:17)
[2023-10-04] MEDS ORDERED: NA CHLORIDE 0.9% 1,000 ML ONE (04:18)
[2023-10-04 04:56] LABS: PT Prothrombin Time 11.2 SECONDS (9.4-12.5)
[2023-10-04 04:59] LABS: Absolute Eosinophils 0.4 K/uL (0-0.5); Absolute Lymphocytes (CBC) 4.2 K/uL (0.7-4.9); Absolute Monocytes 0.3 K/uL (0.1-1.3); Absolute Neutrophil 4.1 K/uL (1.8-8.0); Basophils % 0.5 % (0-1.3); Eosinophils % 4.5 % (0-4.4); Hematocrit 37.9 % (36.0-45.0); Hemoglobin 13.4 g/dL (12.0-15.0); Lymphocytes % 46.4 % (15.3-44.8); MCH 32.9 pg (27.0-35.0); MCHC 35.4 g/dL (32.0-36.0); MCV 92.8 fL (80-100); MPV 7.1 fL (7.6-11.3); Monocytes % 3.2 % (3.3-12.3); Neutrophils % 45.4 % (41.7-73.7); Nucleated Red Blood Cells % 0.3 % (0-0); Platelets 287 thou/uL (152-406); RBC Red Blood Cell Count 4.08 M/uL (3.86-4.86); Red Cell Distribution Width 12.8 % (12.1-15.2)
[2023-10-04 05:00] LABS: Specific Gravity 1.021 (1.005-1.030)
[2023-10-04 05:09] LABS: Specific Gravity 1.021 (1.005-1.030); Urine Bacteria <20 /HPF (<20); Urine Bilirubin NEGATIVE (Negative); Urine Blood Trace (Negative); Urine Clarity Extremely Turbid (Clear); Urine Color Light-Yellow (Yellow); Urine Culture Reflex Order NOT NEEDED; Urine Glucose NEGATIVE (Negative); Urine Ketones NEGATIVE (Negative); Urine Microscopic Reflex YN ORDER UMIC; Urine Mucus Slight /HPF (None Seen); Urine Nitrite NEGATIVE (Negative); Urine Protein NEGATIVE (Negative); Urine RBC <5 /HPF (None Seen); Urine Urobilinogen Normal (Normal); Urine WBC <5 /HPF (<5)
[2023-10-04 05:21] LABS: ALT/SGPT 140 U/L (13-56); AST/SGOT 84 U/L (15-37); Albumin 3.8 g/dL (3.4-5.0); Albumin/Globulin Ratio 1.1 (1.1-1.8); Alkaline Phosphatase 55 U/L (45-117); Anion Gap 8.6 mEq/L (5.0-15.0); BUN Blood Urea Nitrogen 15 mg/dL (7-18); Bicarbonate 28 mEq/L (21-32); Bilirubin Total 0.5 mg/dL (0.2-1.0); Globulin 3.4 g/dL (2.3-3.5); Glomerular Filtration Rate 116 ml/min (=/>90); Glucose Level 179 mg/dL (74-106); Magnesium 1.7 mg/dL (1.6-2.4); NT PRO-BNP 9 pg/mL (<125); Potassium 3.6 mEq/L (3.5-5.1); Protein, Total 7.2 g/dL (6.4-8.2); Sodium Level 135 mEq/L (136-145); Troponin High Sensitivity 3.1 pg/mL (<58.9)
[2023-10-04 05:22] LABS: Bilirubin Direct < 0.2 mg/dL (0-0.2); Bilirubin Indirect, Calculated 0.3 mg/dL (0.2-0.8)
[2023-10-04] MEDS ORDERED: CEFTRIAXONE 1000 MG/VIAL ONE (05:28)
[2023-10-04] MEDS ORDERED: CIPROFLOXACIN HCL 500 MG TAB ONE (05:29)
[2023-10-04] MEDS ORDERED: NA CHLORIDE 0.9% 50 ML ONE (05:30)
--- NOTE | 2023-10-04 06:01 | ER ---
Nurse's Notes [facility] Name: Faye Argueta Age: 37 yrs Sex: Female : 1985 Arrival Date: 10/04/2023 Time: 03:54 Bed 5 Private MD: Diagnosis: Headache;Abdominal pain, unspecified;Obesity, unspecified;Type 2 diabetes mellitus with hyperglycemia;UTI/ Urinary tract infection, site not specified Presentation: 10/03 04:13 Chief complaint: Patient states: Feeling bad for a week and a half, dizziness, vc1 headache, and nausea, with body aches and feel weak. I'm in the process of being checked for diabetes. Coronavirus screen: Client denies travel out of the [place] in the last 14 days. At this time, the client does not indicate any symptoms associated with coronavirus-19. Ebola Screen: Patient negative for fever greater than or equal to 101.5 degrees Fahrenheit, and additional compatible Ebola Virus Disease symptoms Patient denies exposure to infectious person. Patient denies travel to an Ebola-affected area in the 21 days before illness onset. No symptoms or risks identified at this time. Initial Sepsis Screen: Does the patient meet any 2 criteria? No. Patient's initial sepsis screen is negative. Does the patient have a suspected source of infection? No. Patient's initial sepsis screen is negative. Risk Assessment: Do you want to hurt yourself or someone else? Patient reports no desire to harm self or others. Onset of symptoms is unknown. 04:13 Method Of Arrival: Ambulatory vc1 04:13 Acuity: ANIYAH 3 vc1 Triage Assessment: 04:17 General: Appears in no apparent distress. uncomfortable, obese, well groomed, well vc1 developed, well nourished, Behavior is calm, cooperative, appropriate for age. Pain: Complains of pain in right lower quadrant and left lower quadrant Pain began week and a half Also complains of nausea. EENT: No deficits noted. No signs and/or symptoms were reported regarding the EENT system. Neuro: Level of Consciousness is awake, alert, obeys commands. Cardiovascular: Capillary refill < 3 seconds Patient's skin is warm and dry. Respiratory: Airway is patent Respiratory effort is even, unlabored, Respiratory pattern is regular, symmetrical. GI: Abdomen is round non-distended, Reports lower abdominal pain, nausea. : No deficits noted. No signs and/or symptoms were reported regarding the genitourinary system. Derm: Skin is intact, is healthy with good turgor, Skin is dry, Skin is normal, Skin temperature is warm. Musculoskeletal: Circulation, motion, and sensation intact. Range of motion: intact in all extremities. 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 - Infectious Disease History:: Denies. - Social history:: Smoking status: Patient reports the use of cigarette tobacco products, 7 cigs/day. - Family history:: not pertinent. Screenin:16 [facility] ED Fall Risk Assessment (Adult) History of falling in the last 3 months, vc1 including since admission No falls in past 3 months (0 pts) Confusion or Disorientation No (0 pts) Intoxicated or Sedated No (0 pts) Impaired Gait No (0 pts) Mobility Assist Device Used No (0 pt) Altered Elimination No (0 pt) Score/Fall Risk Level 0 - 2 = Low Risk Oriented to surroundings, Maintained a safe environment, Educated pt \T\ family on fall prevention, incl call for assistance when getting out of bed. Abuse screen: Denies threats or abuse. Nutritional screening: No deficits noted. Tuberculosis screening: No symptoms or risk factors identified. Assessment: 04:04 General: Appears uncomfortable, Behavior is calm, cooperative. Pain: Complains of pain ha1 in abdomen and left lower quadrant and right lower quadrant Pain does not radiate. Pain currently is 8 out of 10 on a pain scale. Quality of pain is described as aching, crampy. Neuro: Level of Consciousness is awake, alert, obeys commands, Oriented to person, place, time, situation, Reports dizziness, headache. Cardiovascular: Capillary refill < 3 seconds Patient's skin is warm and dry. Respiratory: Airway is patent Respiratory effort is even, unlabored, Respiratory pattern is regular, symmetrical. GI: Abdomen is round non-distended, obese, Bowel sounds present X 4 quads. Abd is soft and non tender Reports lower abdominal pain, upper abdominal pain, nausea. Derm: Skin is moist, Skin is normal. Musculoskeletal: Circulation, motion, and sensation intact. Range of motion: intact in all extremities. 05:00 Reassessment: Patient and/or family updated on plan of care and expected duration. Pain ha1 level reassessed. Patient is alert, oriented x 3, equal unlabored respirations, skin warm/dry/pink. going to CT Patient states feeling better. Patient states symptoms have improved. Vital Signs: 04:13 BP 112 / 96; Pulse 75; Resp 18; Temp 96.9; Pulse Ox 96% ; Weight 66.68 kg; Height 5 ft. vc1 1 in. ; Pain 0/10; 05:21 BP 97 / 64; Pulse 69; Resp 17 S; Pulse Ox 95% on R/A; ha1 06:15 BP 99 / 67; Pulse 77; Resp 16; Pulse Ox 98% on R/A; al5 04:13 Body Mass Index 27.78 (66.68 kg, 154.94 cm) vc1 04:13 Pain Scale: Adult vc1 ED Course: 03:57 Patient arrived in ED. [id number] 04:05 Sada Quach, GABBY is Primary Nurse. al5 04:05 Brayan Mckay MD is Attending Physician. al5 04:15 Triage completed. vc1 04:15 Inserted saline lock: 20 gauge in left antecubital area, using aseptic technique. Blood ha1 collected. 04:16 Arm band placed on right wrist. vc1 04:17 Patient has correct armband on for positive identification. Bed in low position. Call vc1 light in reach. Pulse ox on. NIBP on. 04:17 Provided Education on: call light, clean catch urine. vc1 04:37 XRAY Chest (1 view) In Process Unspecified. EDMS 04:50 EKG done, by ED staff, reviewed by Brayan Mckay MD. oe 05:13 CT Head Brain wo Cont In Process Unspecified. EDMS 05:15 CT Stone Protocol In Process Unspecified. EDMS 05:35 No provider procedures requiring assistance completed. al5 06:00 Real Tyson MD is Referral Physician. remy 06:16 IV discontinued, intact, bleeding controlled, No redness/swelling at site. Pressure al5 dressing applied. Administered Medications: 04:30 Drug: NS 0.9% IV 1000 ml IV at 1 bolus Per protocol; 1000 mL bolus Route: IV; Rate: 1 al5 bolus; Site: right antecubital; 06:13 Follow up: Response: No adverse reaction; IV Status: Completed infusion; IV Intake: al5 1000ml 04:30 Drug: fentaNYL (PF) IVP 50 mcg IVP once Route: IVP; Site: right antecubital; al5 05:00 Follow up: Response: No adverse reaction; Pain is decreased; RASS: Alert and Calm (0) ha1 06:13 Follow up: Response: No adverse reaction; Pain is decreased al5 04:30 Drug: Ondansetron IVP 4 mg IVP once; over 2 minutes Route: IVP; Site: right antecubital;al5 05:00 Follow up: Response: No adverse reaction; Marked relief of symptoms ha1 06:13 Follow up: Response: No adverse reaction; Nausea is decreased al5 05:34 Drug: Rocephin IV 1 grams IV at per protocol once; Given slow IV push per pharmacy al5 instructions Route: IV; Rate: per protocol; Site: right antecubital; 06:12 Follow up: Response: No adverse reaction; IV Status: Completed infusion; IV Intake: [id number] 05:34 Drug: Ciprofloxacin PO 500 mg PO once Route: PO; al5 06:12 Follow up: Response: No adverse reaction al5 Medication: 04:19 VIS not applicable for this client. vc1 Intake: 06:12 IV: 50ml; Total: 50ml. al5 06:13 IV: 1000ml; Total: 1050ml. al5 Outcome: 06:00 Discharge ordered by . remy 06:16 Discharged to home ambulatory, with family, al5 06:16 Condition: good 06:16 Discharge instructions given to patient, Instructed on discharge instructions, follow up and referral plans. medication usage, Demonstrated understanding of instructions, follow-up care, medications, 06:16 Patient left the ED. al5 Signatures: Dispatcher [employer] EDWY Brayan Mckay MD MD cha Espinosa, Orlando oe Jeffries, Jennifer jj6 Moon Hancock RN RN vc1 Jennifer Sanchez RN RN ha1 Sada Quach RN RN al5 Corrections: (The following items were deleted from the chart) 05:18 05:00 Reassessment: Patient and/or family updated on plan of care and expected ha1 duration. Pain level reassessed. Patient is alert, oriented x 3, equal unlabored respirations, skin warm/dry/pink. ha1
--- NOTE | 2023-10-04 06:01 | EDPHYS ---
Physician Documentation [facility] Name: Faye Argueta Age: 37 yrs Sex: Female : 1985 Arrival Date: 10/04/2023 Time: 03:54 Bed 5 Private MD: VALENTIN Physician Brayan Mckay HPI: 10/03 04:15 This 37 yrs old Female presents to ER via Unassigned with complaints of remy Abdominal Pain, Dizziness, Headache. 04:15 The patient presents with dizziness, generalized weakness. Onset: The symptoms/episode remy began/occurred 2 day(s) ago. Context: occurred at home, occurred while the patient was usual. Modifying factors: The symptoms are alleviated by nothing, the symptoms are aggravated by nothing. Associated signs and symptoms: Pertinent positives: abdominal pain, headache. Severity of symptoms: At their worst the symptoms were mild in the emergency department the symptoms are unchanged. Patient's baseline: Neuro: alert and fully oriented. The patient has experienced similar episodes in the past, a few times. 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 - Infectious Disease History:: Denies. - Social history:: Smoking status: Patient reports the use of cigarette tobacco products, 7 cigs/day. - Family history:: not pertinent. ROS: 04:15 Constitutional: Negative for fever, chills, and weight loss, Eyes: Negative for injury, remy pain, redness, and discharge, ENT: Negative for injury, pain, and discharge, Neck: Negative for injury, pain, and swelling, Cardiovascular: Negative for chest pain, palpitations, and edema, Respiratory: Negative for shortness of breath, cough, wheezing, and pleuritic chest pain, Back: Negative for injury and pain, : Negative for injury, bleeding, discharge, and swelling, MS/Extremity: Negative for injury and deformity, Skin: Negative for injury, rash, and discoloration, Psych: Negative for depression, anxiety, suicide ideation, homicidal ideation, and hallucinations, Allergy/Immunology: Negative for hives, rash, and allergies, Endocrine: Negative for neck swelling, polydipsia, polyuria, polyphagia, and marked weight changes, Hematologic/Lymphatic: Negative for swollen nodes, abnormal bleeding, and unusual bruising, 04:15 Abdomen/GI: Positive for abdominal pain, abdominal cramps, abdominal distension, 04:15 Neuro: Positive for headache, Exam: 04:15 Constitutional: This is a well developed, well nourished patient who is awake, alert, remy and in no acute distress. Head/Face: Normocephalic, atraumatic. Eyes: Pupils equal round and reactive to light, extra-ocular motions intact. Lids and lashes normal. Conjunctiva and sclera are non-icteric and not injected. Cornea within normal limits. Periorbital areas with no swelling, redness, or edema. ENT: Nares patent. No nasal discharge, no septal abnormalities noted. Tympanic membranes are normal and external auditory canals are clear. Oropharynx with no redness, swelling, or masses, exudates, or evidence of obstruction, uvula midline. Mucous membranes moist. Neck: Trachea midline, no thyromegaly or masses palpated, and no cervical lymphadenopathy. Supple, full range of motion without nuchal rigidity, or vertebral point tenderness. No Meningismus. Chest/axilla: Normal chest wall appearance and motion. Nontender with no deformity. No lesions are appreciated. Cardiovascular: Regular rate and rhythm with a normal S1 and S2. No gallops, murmurs, or rubs. Normal PMI, no JVD. No pulse deficits. Respiratory: Lungs have equal breath sounds bilaterally, clear to auscultation and percussion. No rales, rhonchi or wheezes noted. No increased work of breathing, no retractions or nasal flaring. Abdomen/GI: Soft, non-tender, with normal bowel sounds. No distension or tympany. No guarding or rebound. No evidence of tenderness throughout. Back: No spinal tenderness. No costovertebral tenderness. Full range of motion. Female : Normal external genitalia. Skin: Warm, dry with normal turgor. Normal color with no rashes, no lesions, and no evidence of cellulitis. MS/ Extremity: Pulses equal, no cyanosis. Neurovascular intact. Full, normal range of motion. Neuro: Awake and alert, GCS 15, oriented to person, place, time, and situation. Cranial nerves II-XII grossly intact. Motor strength 5/5 in all extremities. Sensory grossly intact. Cerebellar exam normal. Normal gait. Psych: Awake, alert, with orientation to person, place and time. Behavior, mood, and affect are within normal limits. 04:15 Neck: Thyroid: appears normal, Trachea: is midline with no obvious abnormalities, ROM/movement: is normal, no acute changes, Lymph nodes: no appreciated lymphadenopathy, 04:15 Musculoskeletal/extremity: DVT Exam: No signs of deep vein thrombosis. no pain, no swelling, no tenderness, negative Homans' sign noted on exam, no appreciated bluish discoloration, no erythema, no increased warmth, 04:50 ECG was reviewed by the Attending Physician. [facility] Vital Signs: 04:13 BP 112 / 96; Pulse 75; Resp 18; Temp 96.9; Pulse Ox 96% ; Weight 66.68 kg; Height 5 ft. vc1 1 in. ; Pain 0/10; 05:21 BP 97 / 64; Pulse 69; Resp 17 S; Pulse Ox 95% on R/A; ha1 06:15 BP 99 / 67; Pulse 77; Resp 16; Pulse Ox 98% on R/A; al5 04:13 Body Mass Index 27.78 (66.68 kg, 154.94 cm) vc1 04:13 Pain Scale: Adult vc1 MDM: 04:07 Patient medically screened. remy 04:18 Differential diagnosis: cardiac arrhythmia, CVA, generalized weakness, hypovolemia, remy idiopathic dizziness, near-syncope, , sepsis, syncope, TIA, vertigo. Data reviewed: vital signs, nurses notes, lab test result(s), EKG, radiologic studies, CT scan, plain films. Consideration of Admission/Observation Escalation of care including admission/observation considered. I considered the following discharge prescriptions or medication management in the emergency department Medications were administered in the Emergency Department. See MAR. Independent interpretation of the following test(s) in the Emergency Department EKG: See my EKG interpretation above. Test considered but Not performed: Ultrasound no abd usg. 10/03 04:12 Order name: Basic Metabolic Panel; Complete Time: 05:[address] [facility] 10/03 04:12 Order name: CBC with Diff; Complete Time: 05:[address] [facility] 10/03 04:12 Order name: LFT's; Complete Time: 05:[address] [facility] 10/03 04:12 Order name: Magnesium; Complete Time: 05:[address] [facility] 10/03 04:12 Order name: NT PRO-BNP; Complete Time: 05:[address] [facility] 10/03 04:12 Order name: PT-INR; Complete Time: 05:[address] [facility] 10/03 04:12 Order name: Troponin HS; Complete Time: 05:[address] [facility] 10/03 04:12 Order name: Urinalysis w/ reflexes; Complete Time: 05:[address] [facility] 10/03 04:12 Order name: PREGU; Complete Time: 05:[address] [facility] 10/03 04:20 Order name: Glucose, Ancillary Testing; Complete Time: 04:46 EDMS 10/03 04:12 Order name: XRAY Chest (1 view) [facility] 10/03 04:12 Order name: CT Head Brain wo Cont [facility] 10/03 04:12 Order name: CT Stone Protocol [facility] 10/03 04:12 Order name: Cardiac monitoring; Complete Time: 05:[address] [facility] 10/03 04:12 Order name: EKG - Nurse/Tech; Complete Time: 05:[address] [facility] 10/03 04:12 Order name: IV Saline Lock; Complete Time: 04:[address] [facility] 10/03 04:12 Order name: Labs collected and sent; Complete Time: 04:[address] [facility] 10/03 04:12 Order name: O2 Per Protocol; Complete Time: 04:[address] [facility] 10/03 04:12 Order name: O2 Sat Monitoring; Complete Time: 04:[address] [facility] EC:50 Rate is 72 beats/min. Rhythm is regular. QRS [place] is Normal. CT interval is normal. QRS remy interval is normal. No Q waves. T waves are Normal. No ST changes noted. Clinical impression: NSR w/ Non-specific ST/T Changes and No evidence of ischemia. Interpreted by me. Reviewed by me. Administered Medications: 04:30 Drug: NS 0.9% IV 1000 ml IV at 1 bolus Per protocol; 1000 mL bolus Route: IV; Rate: 1 al5 bolus; Site: right antecubital; 06:13 Follow up: Response: No adverse reaction; IV Status: Completed infusion; IV Intake: al5 1000ml 04:30 Drug: fentaNYL (PF) IVP 50 mcg IVP once Route: IVP; Site: right antecubital; al5 05:00 Follow up: Response: No adverse reaction; Pain is decreased; RASS: Alert and Calm (0) ha1 06:13 Follow up: Response: No adverse reaction; Pain is decreased al5 04:30 Drug: Ondansetron IVP 4 mg IVP once; over 2 minutes Route: IVP; Site: right antecubital;al5 05:00 Follow up: Response: No adverse reaction; Marked relief of symptoms ha1 06:13 Follow up: Response: No adverse reaction; Nausea is decreased al5 05:34 Drug: Rocephin IV 1 grams IV at per protocol once; Given slow IV push per pharmacy al5 instructions Route: IV; Rate: per protocol; Site: right antecubital; 06:12 Follow up: Response: No adverse reaction; IV Status: Completed infusion; IV Intake: [id number] 05:34 Drug: Ciprofloxacin PO 500 mg PO once Route: PO; al5 06:12 Follow up: Response: No adverse reaction al5 Disposition Summary: 10/04/23 06:00 Discharge Ordered Notes: Location: Home remy Problem: new remy Symptoms: have improved remy Condition: Stable remy Diagnosis - Headache remy - Abdominal pain, unspecified remy - Obesity, unspecified remy - Type 2 diabetes mellitus with hyperglycemia remy - UTI/ Urinary tract infection, site not specified remy Followup: remy - With: Private Physician - When: 2 - 3 days - Reason: Recheck today's complaints, Continuance of care, Re-evaluation by your physician Followup: remy - With: Real Tyson MD - When: 2 - 3 days - Reason: Recheck today's complaints, Re-evaluation by your physician Discharge Instructions: - Discharge Summary Sheet remy - Abdominal Pain, Adult remy - Type 2 Diabetes Mellitus, Diagnosis, Adult remy - General Headache Without Cause remy - Hyperglycemia remy - Obesity, Adult remy - Urinary Tract Infection, Adult remy - Urinary Tract Infection, Adult, [id number] remy - Diabetes Mellitus and Nutrition, Adult remy - General Headache Without Cause, [id number] remy Forms: - Medication Reconciliation Form remy - Antibiotic Education remy - Prescription Opioid Use remy - Patient Portal Instructions remy - Leadership Thank You Letter remy - Work release form al5 Prescriptions: - ondansetron 4 mg Oral Tablet,disintegrating - take 1 tablet ORAL route every 8-12 hours for 5 days as needed for nausea and remy vomiting; 20 tablet; Refills: 0, Product Selection Permitted - Cipro 250 mg Oral tablet - take 1 tablet ORAL route every 12 hours; 14 tablet; Refills: 0, Product remy Selection Permitted Signatures: Dispatcher [employer] EDBrayan Tavera MD MD cha Calcote, Vanessa, RN RN vc1 Sada Quach, GABBY RN al5 Jennifer Sanchez RN ha1 Corrections: (The following items were deleted from the chart) 04:12 04:12 BASIC METABOLIC PANEL+C.LAB.BRZ ordered. EDMS EDMS 04:12 04:12 CBC+H.LAB.BRZ ordered. EDMS EDMS 04:12 04:12 HEPATIC FUNCTION+C.LAB.BRZ ordered. EDMS EDMS 04:12 04:12 MAGNESIUM+C.LAB.BRZ ordered. EDMS EDMS 04:12 04:12 PROBNP+C.LAB.BRZ ordered. EDMS EDMS 04:12 04:12 PROTIME (+INR)+COAG.LAB.BRZ ordered. EDMS EDMS 04:12 04:12 Troponin High Sensitivity+C.LAB.BRZ ordered. EDMS EDMS 04:12 04:12 Urinalysis+U.LAB.BRZ ordered. EDMS EDMS 04:12 04:12 Test, Urine+UC.LAB.BRZ ordered. EDMS EDMS 04:12 04:12 Chest Single View+RAD.RAD.BRZ ordered. EDMS EDMS 04:13 04:13 Head Brain Wo Cont+CT.RAD.BRZ ordered. EDMS EDMS 04:13 04:13 Stone Protocol+CT.RAD.BRZ ordered. EDMS EDMS
[2023-10-04 06:51] VITALS: TEMP 96.9
[2023-10-04 06:55] VITALS: BP 99/67; O2SAT 98
--- NOTE | 2023-10-04 10:17 | RAD REPORT ---
EXAM DESCRIPTION: CT - Stone Protocol - 10/04/2023 6:25 am CLINICAL HISTORY: Pain. COMPARISON: None. TECHNIQUE: CT ABDOMEN PELVIS WITHOUT IV CONTRAST on 10/04/2023 4:12 AM CDT This exam was performed according to our departmental dose-optimization program, which includes autom ated exposure control, adjustment of the mA and/or kV according to patient size and/or use of iterati ve reconstruction technique. FINDINGS: Lower lungs are clear. Abdomen: Liver is enlarged and fatty in attenuation. There is no biliary dilatation. Gallbladder is n ormally distended. The pancreas and spleen are normal in appearance. The adrenal glands and kidneys a re unremarkable. Abdominal aorta is normal in course and caliber without aneurysm. There is no free air. There is no r etroperitoneal adenopathy. Pelvis: There is no bowel obstruction. Urinary bladder is unremarkable. There is no free fluid. Uteru s is normal in size. Appendix is normal. Skeleton: There are no acute osseous findings. No suspicious bony lesions. IMPRESSION: No acute findings. Electronically signed by: Damian Chan MD 10/04/2023 05:44 AM CDT RP Due to temporary technical issues with the PACS/Fluency reporting system, reports are being signed by the in house radiologist without review as a courtesy to ensure prompt reporting. The interpreting r adiologist is fully responsible for the content of the report.
--- NOTE | 2023-10-04 10:36 | RAD REPORT ---
EXAM DESCRIPTION: CT - Head Brain Wo Cont - 10/04/2023 6:26 am CLINICAL HISTORY: Headache. COMPARISON: CT Head Cervical Spine 04/30/2022. TECHNIQUE: CT HEAD WITHOUT IV CONTRAST on 10/04/2023 4:12 AM CDT This exam was performed according to our departmental dose-optimization program, which includes autom ated exposure control, adjustment of the mA and/or kV according to patient size and/or use of iterati ve reconstruction technique. FINDINGS: There is no acute hemorrhage, mass effect or midline shift. Perkins-white differentiation is preserved. There is no hydrocephalus. There is no significant volume loss for age. The calvarium is intact. Orbits and globes are unremarkable. There is moderate thickening of the maxi llary sinuses. Many of the ethmoid air cells are opacified. Left frontal sinus is opacified. There is mild thickening of the right frontal sinus. Mastoid air cells are clear. IMPRESSION: No acute intracranial findings. Electronically signed by: Damian Chan MD 10/04/2023 05:55 AM CDT Due to temporary technical issues with the PACS/Fluency reporting system, reports are being signed by the in house radiologist without review as a courtesy to ensure prompt reporting. The interpreting r adiologist is fully responsible for the content of the report.
--- NOTE | 2023-10-04 11:35 | RAD REPORT ---
EXAM DESCRIPTION: RAD - Chest Single View - 10/04/2023 4:35 am CLINICAL HISTORY: Abdominal distention, pain. COMPARISON: None. TECHNIQUE: XR CHEST 1 VIEW 10/04/2023 4:12 AM CDT FINDINGS: Cardiac silhouette is normal in size. Lungs are clear without consolidation, atelectasis, mass or edema. There is no pleural effusion. There is no pneumothorax. There are no acute osseous fin dings. IMPRESSION: Clear lungs. Electronically signed by: Damian Chan MD 10/04/2023 05:07 AM CDT RP Due to temporary technical issues with the PACS/Fluency reporting system, reports are being signed by the in house radiologist without review as a courtesy to ensure prompt reporting. The interpreting r adiologist is fully responsible for the content of the report.
--- NOTE | 2023-10-05 12:55 | EKG ---
Test Date: 2023-10-04 Test Time: 04:48:20 Scrap Iron Cutter: KIMBERLY MEASUREMENT RESULTS: Intervals: Rate: 72 ME: 130 QRSD: 82 QT: 396 QTc: 433 [place]: P: 74 ME: 130 QRS: 89 T: 58 INTERPRETIVE STATEMENTS: Normal sinus rhythm with sinus arrhythmia Normal ECG No previous ECG available for comparison Electronically Signed On 10-05-23 12:54:06 CDT by Brain Morfin
== END 2023-10-04 06:16 | disposition home or self-care (01) ==
LOC: ER 03:54
DX: R51.9 Headache, unspecified (principal); N39.0 Urinary tract infection, site not specified; E11.65 Type 2 diabetes mellitus with hyperglycemia; R10.9 Unspecified abdominal pain; E66.9 Obesity, unspecified; Z68.27 Body mass index [BMI] 27.0-27.9, adult
CPT/HCPCS: 36415; 70450; 71045; 74176; 76377; 80048; 80076; 81001; 81025; 82947; 83735; 83880; 84484; 85025; 85610; 93005; J0696; J2405; J3010; J7030

== ENCOUNTER 2023-10-13 12:36 | Emergency (ER) | payer OTHER ==
--- OUTSIDE RECORDS SUMMARY | 2023-10-13 12:41 | XMS REPORT | Continuity of Care Document ---
Author Name Unknown Address [address] [facility] [address] [place] [address] [facility] thconnect Address [address] [facility] [place] [address] Care Team Providers Care Powerbuilder Name Role Phone Pcp, Patient Does Not Have A Primary Care Physic leanne Hasmukh Roberts Attending Clinician HASMUKH ROGER Attending Clinician Unavailable RENETTA FISHER [...] Attending Clinician Tricia Joseph MD Attending Clinician [phone] Doctor Unassigned, [place] Attending Clinician U LEANN Gutierrez Attending Clinician Unavailable Leann Aguero PA-C Attending Clinician [phone] LEE RICO Attending Clinician Unavailable Melody Ramos Attending Clinician Lee May Attending Clinician 2, [facility] Attending Clinician Unavailable Karen Monzon Attending Clinician [phone] Bolivar Rojas Attending Clinician + [phone] BOLIVAR NO Attending Clinician Unavailab le Payers Payer Name Policy Type Policy Number Effective Date Expirati on Date Source [facility] S[facility]: 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 94 ON STAND 9 [id number] 2022 00:00:00 [facility] [id number] 2021 00:00:00 Problems Condition Name Condition Details Condition Category Status Onset Date Resolution Date Last Treatment Date Treating Clinician Comments Source Morbid obesity with body mass index of 40.0-49.9 Morbid obesity with body mass index of 40.0-49.9 Disease Active 7-20 00:00: 00 [facility] Presence of intrauteri ne contracept ruel device Presence of intrauteri ne contracept ruel device Disease Resolve d 2021-02 0-24 00:00: 00 2023-10-02 00:00:00 2023-10-02 09:08:21 [facility] Allergies, Adverse Reactions, Alerts Allergy Name Allergy Type Status Severity Reaction(s) Onset Date Inactive Date Treating Clinician Comments Source NO KNOWN ALLERGIE S Drug Class Active [facility] Social History Social Habit Start Date Stop Date Quantity Comments Source [facility] of tobacco use Cigarette Smoker [facility] History SDOH Alcohol Frequency [facility] History SDOH Alcohol Std Drinks [facility] History SDOH Alcohol Binge [facility] Gender identity Dayana Taylor - External Alcoholic beverage intake 2023-10-02 00:00:00 2023-10-02 00:00:00 Current drinker of alcohol (finding) [facility] History of Social function 2023-10-02 00:00:00 2023-10-02 00:00:00 [facility] Tobacco use and exposure 2023-10-02 00:00:00 2023-10-02 00:00:00 Smokeless tobacco non-user [facility] Alcohol intake 2022-12-05 00:00:00 2022-12-05 00:00:00 .14 /d Shefali Taylor - External Cigarette pack-years 2022-09-19 00:00:00 2022-09-19 00:00:00 Shefali Taylor - External Cigarettes smoked current (pack per day) - Reported 2022-09-19 00:00:00 2022-09-19 00:00:00 Shefali Taylor - External Alcohol Comment 2022-08-31 00:00:00 2022-08-31 00:00:00 socially Shefali Robertson Exposure to SARS-CoV-2 (event) 2021-11-19 00:00:00 2021-11-29 08:41:00 Not sure [facility] Sex Assigned At 1985 00:00:00 1985 00:00:00 Shefali Robertson Smoking Status Start Date Stop Date Source Smokes tobacco daily 2023-10-02 00:00:00 [facility] Medications Ordered Medication Name Filled Medication Name Start Date Stop Date Current Medication? Ordering Clinician Indication Dosage Frequency Signature (SIG) Comments Components Source metFORMIN 500 mg tablet 10-02 00:00: 00 Yes [id number] 500mg Take 1 tablet by mouth in the morning and 1 tablet in the evening. Take with meals. [facility] Diclofenac Sodium 75 MG oral Tablet Delayed Response 2022-02 00:00: 00 Yes [id number] 9108 75mg Take 1 tablet (75 mg total) by mouth 2 times daily. Shefali moulton predniSONE (DELTASONE) 20 MG oral tablet 2022-02 00:00: 00 Yes [id number] 9108 20mg Take 1 tablet (20 mg total) by mouth daily. Shefali moulton predniSONE (DELTASONE) 20 MG oral tablet -18 00:00: 00 12-05 00:00 :00 No [id number] 9108 20mg Take 1 tablet (20 mg total) by mouth daily. Shefali moulton miSOPROStol (CYTOTEC) 200 MCG oral Tablet 10-05 00:00: 00 12-05 00:00 :00 No [id number] 200ug Take 1 tablet (200 mcg total) by mouth See Admin Instructio ns Take 1 tablet (200 mcg) by mouth at bedtime the night before the procedure. Take the second pill by mouth 4 hours prior to the procedure. . Shefali moulton Gabapentin 100 MG oral Capsule 09-19 00:00: 00 Yes [id number] 9102 300mg Q.[id number] 3D Take 3 capsules (300 mg total) by mouth 3 times daily as needed Shefali moulton Diclofenac Sodium 75 MG oral Tablet Delayed Response 09-19 00:00: 00 12-05 00:00 :00 No [id number] 261315 75mg Take 1 tablet (75 mg total) by mouth 2 times daily Shefali moulton Amoxicillin -Pot Clavulanate 875-125 MG oral Tablet 08-31 00:00: 00 Yes [id number] 1{tbl} Take 1 tablet by mouth 2 times daily Shefali moulton TRIMETHOPRI M-POLYMYXIN B 65269-7.1 UNIT/ML-% ophthalmic Solution 08-31 00:00: 00 12-05 00:00 :00 No [id number] 9102 1[drp] Apply 1 drop to eye [...] 200 mg tablet 2021-02 00:00: 00 Yes [id number] 200mg Take 1 tablet by mouth in the morning. [facility] No known medications 2021-02 14:57: 23 No No known medication s [facility] miSOPROStoL 200 mcg tablet 10-27 00:00: 00 Yes [id number] Take one tablet night before procedure, then take one tablet morning of procedure [facility] metroNIDAZO LE 500 mg tablet 10-27 00:00: 00 Yes [id number] 500mg Take 1 tablet by mouth every 12 (twelve) hours. [facility] fluconazole 150 mg tablet 10-27 00:00: 00 10-28 04:59 :00 No [id number] 150mg Take 1 tablet by mouth once now for 1 dose. [facility] miSOPROStoL 200 mcg tablet 09-28 00:00: 00 10-27 00:00 :00 No [id number] Take one tablet night before procedure, then take one tablet morning of procedure [facility] nystatin 100,000 unit/gram cream 09-16 00:00: 00 Yes [id number] Apply to area(s) 2 (two) times daily. [facility] Immunizations Ordered Immunization Name Filled Immunization Name Date Status Comments Source Influenza Virus Vaccine Quad IM, Preserv and ABX Free 6 MO-64 YRS 2021-11-29 00:00:00 Completed [facility] Influenza Virus Vaccine Quad IM, Preserv and ABX Free 6 MO-64 YRS 2021-11-29 00:00:00 Completed [facility] Influenza Virus Vaccine Quad IM, Preserv and ABX Free 6 MO-64 YRS 2021-11-29 00:00:00 Completed [facility] Influenza Virus Vaccine Quad IM, Preserv and ABX Free 6 MO-64 YRS 2021-11-29 00:00:00 Completed [facility] Influenza Virus Vaccine Quad IM, Preserv and ABX Free 6 MO-64 YRS 2021-11-29 00:00:00 Completed [facility] Influenza, Injectable, Mdck, Preservative Free, Quadrivalt 2021-11-29 00:00:00 Completed Shefali Taylor - External Influenza Virus Vaccine Quad IM, Preserv and ABX Free 6 MO-64 YRS (FLUCELVAX) Unknown Completed [facility] Influenza Virus Vaccine Quad IM, Preserv and ABX Free 6 MO-64 YRS (FLUCELVAX) Unknown Completed [facility] Influenza, Injectable, Mdck, Preservative Free, Quadrivalent Unknown Completed Shefali Dicksonold - External Vital Signs Vital Name Observation Time Observation Value Comments Christiano guerrero Systolic blood pressure 2023-10-02 12:58:00 95 mm[Hg] [facility] Diastolic blood pressure 2023-10-02 12:58:00 63 mm[Hg] [facility] Heart rate 2023-10-02 12:58:00 82 /min [facility] Body temperature 2023-10-02 12:58:00 35.56 [facility] Respiratory rate 2023-10-02 12:58:00 18 /min [facility] Body height 2023-10-02 12:58:00 154.9 cm [facility] Body weight 2023-10-02 12:58:00 103.828 kg [facility] BMI 2023-10-02 12:58:00 43.25 kg/m2 [facility] Systolic blood pressure 2022-12-05 19:14:00 118 mm[Hg] [...] External Body temperature 2022-08-31 21:25:00 37.72 Daiana Shefali Seybold - External Respiratory rate 2022-08-31 21:25:00 18 /min Shefali Seybold - External Body height 2022-08-31 21:25:00 154.9 cm Dayana ey Seybold - External Body weight 2022-08-31 21:25:00 87.907 kg Dayana ey Seybold - External BMI 2022-08-31 21:25:00 36.62 kg/m2 Dayana ey Seybold - External Systolic blood pressure 2021-10-27 18:49:00 94 mm[Hg] [facility] Diastolic blood pressure 2021-10-27 18:49:00 61 mm[Hg] [facility] Heart rate 2021-10-27 18:49:00 88 /min [facility] Body temperature 2021-10-27 18:49:00 37 [facility] Body height 2021-10-27 18:49:00 154.9 cm [facility] Body weight 2021-10-27 18:49:00 96.072 kg [facility] BMI 2021-10-27 18:49:00 40.02 kg/m2 [facility] Systolic blood pressure 2021-10-02 18:49:00 101 mm[Hg] [facility] Diastolic blood pressure 2021-10-02 18:49:00 65 mm[Hg] [facility] Heart rate 2021-10-02 18:49:00 78 /min [facility] Body temperature 2021-10-02 18:49:00 36.11 Da[facility] Respiratory rate 2021-10-02 18:49:00 17 /min [facility] Body height 2021-10-02 18:49:00 154.9 cm [facility] Body weight 2021-10-02 18:49:00 98.062 kg [facility] BMI 2021-10-02 18:49:00 40.85 kg/m2 [facility] Oxygen saturation in Arterial blood by Pulse oximetry 2021-10-02 18:49:00 98 /min [facility] Procedures Procedure Date / Time Performed Performing Clinician Source POCT GLUCOSE(AGE >30DAYS) 2023-10-02 14:23:00 [facility] (A1C) 2023-10-02 14:18:00 Kana [facility] HIV 1/2 AG-AB WITH REFLEX 2023-10-02 14:18:00 Kana [facility] PAP SMEAR-LIQUID BASED-CP 2023-10-02 14:18:00 Kana [facility] SYPHILIS IGG/IGM 2023-10-02 14:18:00 [facility] (AUTOMATED) 2023-10-02 14:13:00 Kana [facility] POCT SARS-COV-2 ANTIGEN (BINAX NOW) 2023-10-02 13:25:00 Hasmukh Roger [facility] DIRECTOR INDEPENDENT CLINIC ULTRASOUND 2021-11-29 05:01:00 Doctor Unassigned, [place] [facility] EXTERNAL PROVIDER RECORDS 2021 05:01:00 Doctor Unassigned, [place] [facility] Encounters Start Date/Time End Date/Time Encounter Type Admission Type Attending Clinicians Care Facility Care Department Encounter ID Source 2023-10-03 00:00:00 2023-10-03 14:25:59 Telephone [facility] DIRECTOR INDEPENDENT [facility]ILD [facility] [id number] 350.1.13.10 4.2.7.2.686 [id number] [facility] 2023-10-02 07:45:00 2023-10-02 09:19:40 Outpatient R HASMUKH ROGER [facility] [id number] [facility] 2023-10-02 07:45:00 2023-10-02 09:19:40 Office Visit [facility] DIRECTOR INDEPENDENT [facility] CHILD [facility] [id number] 350.1.13.10 4.2.7.2.686 [id number] [facility] 2023-09-29 13:45:00 2023-09-29 13:45:00 Outpatient R RENETTA RAINES [facility] [id number] [facility] 2022-12-13 09:30:00 2022-12-13 09:30:00 Outpatient CAMRYN CONWAY [id number] [facility] 2022-12-09 00:00:00 2022-12-09 00:00:00 Outpatient CARMYN CONWAY [id number] [facility] 2022-12-06 00:00:00 2022-12-06 00:00:00 Outpatient CAMRYN CONWAY [id number] [facility] 2022-12-06 00:00:00 2022-12-06 00:00:00 Outpatient CAMRYN CONWAY [id number] [facility] 2022-12-05 14:45:00 2022-12-05 14:45:00 Outpatient LAB90 SHEFALI JAQUEZ [id number] [facility] 2022-12-05 14:00:00 2022-12-05 14:00:00 Outpatient CAMRYN CONWAY SHEFALI JAQUEZ [id number] [facility] 2022-11-04 09:30:00 2022-11-04 09:30:00 Outpatient BO GARZA [id number] [facility] 2022-10-26 14:00:00 2022-10-26 14:00:00 Outpatient KAYLARONALDChad JAQUEZ [id number] [facility] 2022-10-24 14:30:00 2022-10-24 14:30:00 Outpatient CLARK DICKERSON [id number] [facility] 2022-10-24 00:00:00 2022-10-24 00:00:00 [facility] [id number] [facility] 2022-10-05 00:00:00 2022-10-05 00:00:00 Outpatient KAYLA BOMARIBEL JAQUEZ [id number] [facility] 2022-10-05 00:00:00 2022-10-05 00:00:00 Outpatient MD SHEFALI NIXON [id number] [facility] 2022-09-28 00:00:00 2022-09-28 00:00:00 Outpatient RONI ASTORGA [id number] [facility] 2022-09-19 10:00:00 2022-09-19 10:00:00 Outpatient RONI ASTORGA [id number] Shefali Seybold 2022-09-16 00:00:00 2022-09-16 00:00:00 Outpatient RONI ASTORGA [id number] Shefali Seybold 2022-09-15 14:15:00 2022-09-15 14:15:00 Outpatient LAB45 SHEFALI JAQUEZ [id number] Shefali Seybold 2022-09-15 13:30:00 2022-09-15 13:30:00 Outpatient BO GARZA SHEFALI [id number] [facility] 2022-09-01 00:00:00 2022-09-01 00:00:00 Outpatient RONI ASTORGA SHEFALI [id number] [facility] 2022-08-31 17:15:00 2022-08-31 17:15:00 Outpatient LAB90 SHEFALI SHEFALI [id number] [facility] 2022-08-31 16:30:00 2022-08-31 16:30:00 Outpatient RONI ASTORGA SHEFALI [id number] [facility] 2022-08-31 00:00:00 2022-08-31 00:00:00 Outpatient DIAN WALSH SHEFALI JAQUEZ [id number] [facility] 2022-08-31 00:00:00 2022-08-31 00:00:00 Outpatient RONI ASTORGA SHEFALI JAQUEZ [id number] [facility] 2022-08-25 15:00:00 2022-08-25 15:00:00 Outpatient TRICIA [facility] [id number] [facility] 2022-08-25 15:00:00 2022-08-25 15:00:00 Outpatient TRCIIA [facility] [id number] [facility] 2022-06-22 00:00:00 2022-06-22 00:00:00 Telephone Abbi Scanlon ..840.114 350.1.13.10 4.2.7.2.686 [id number] [facility] 2022-01-05 09:00:00 2022-01-05 09:00:00 Outpatient TRICIA [facility]UELA [facility] [id number] [facility] 2021-12-06 00:00:00 2021-12-06 00:00:00 Telephone Tricia Montgomery [facility] ..840.114 350.1.13.10 4.2.7.2.686 [id number] [facility] 2021-11-30 00:00:00 2021-11-30 00:00:00 Case Management Tricia Montgomery [facility] 1.2.840.114 350.1.13.10 4.2.7.2.686 [id number] [facility] 2021-11-29 09:00:00 2021-11-29 10:24:09 Outpatient R VALENTINATRICIA [facility] [id number] [facility] 2021-11-29 00:00:00 2021-11-29 00:00:00 Orders Only Doctor Unassigned, [place] 1.2.840.114 350.1.13.10 4.2.7.2.686 [id number] [facility] 2021-10-27 13:15:00 2021-10-27 14:25:01 [facility] [id number] 2021-10-27 13:15:00 2021-10-27 14:25:01 Office Visit Laci [facility] 1.2.840.114 350.1.13.10 4.2.7.2.686 [id number] [facility] 2021-10-27 09:00:00 2021-10-27 09:00:00 Outpatient R VALENTINATRICIA [facility] [id number] [facility] 2021-10-27 00:00:00 2021-10-27 00:00:00 Telephone Laci [facility] 1.2.840.114 350.1.13.10 4.2.7.2.686 [id number] [facility] 2021 00:00:00 2021 00:00:00 Orders Only Doctor Unassigned, [place] [id number] 350.1.13.10 4.2.7.2.686 [id number] [facility] 2021-10-02 13:40:00 2021-10-02 14:11:51 Outpatient Jade VINODAleksandar [facility] [id number] [facility] 2021-10-02 13:40:00 2021-10-02 14:11:51 Urgent Care GreenMelody Clarissa, [facility] 1.2.840.114 350.1.13.10 4.2.7.2.686 [id number] [facility] 2021-09-14 00:00:00 2021-09-14 00:00:00 Telephone Tricia Montgomery [facility] 1.2.840.114 350.1.13.10 4.2.7.2.686 [id number] [facility] 2021-08-25 11:30:00 2021-08-25 11:45:00 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 2, [facility] Leann Aguero [facility] 1.2.840.114 350.1.13.10 4.2.7.2.686 [id number] [facility] 2021-08-25 10:00:00 2021-08-25 10:31:00 Outpatient LEANN [facility] [id number] [facility] 2021-08-25 10:00:00 2021-08-25 10:31:00 Office Visit Laci Leann [facility] 1.2.840.114 350.1.13.10 4.2.7.2.686 [id number] [facility] 2021-08-25 10:00:00 2021-08-25 10:31:00 Outpatient R LEANN [facility] [id number] [facility] 2021-08-25 00:00:00 2021-08-25 00:00:00 Letter (Out) Doctor Unassigned, [place] 1.2.840.114 350.1.13.10 4.2.7.2.686 [id number] [facility] 2021-08-25 00:00:00 2021-08-25 00:00:00 Telephone [facility] 1.2.840.114 350.1.13.10 4.2.7.2.686 [id number] [facility] 2021-08-25 00:00:00 2021-08-25 00:00:00 Orders Only Doctor Unassigned, [place] 1.2840.114 350.1.13.10 4.2.7.2.686 [id number] [facility] 2021-05-27 17:00:00 2021-05-27 17:57:09 Urgent Care Karen Walter [facility] 1.2.840.114 350.1.13.10 4.2.7.2.686 [id number] [facility] 2021-05-27 17:00:00 2021-05-27 17:57:09 Outpatient BOLIVAR RAI [facility] [id number] [facility] 2021-05-27 00:00:00 2021-05-27 00:00:00 Orders Only Doctor Unassigned, [place] 1.2840.114 350.1.13.10 4.2.7.2.686 [id number] [facility] Results Test Description Test Time Test Comments Results Result Co mments [facility] >30days[facility]2023-10-02 14:23:00* Test Item Value Reference Range Interpretation Comme nts POCT Glu (age>30days) (test code = 3342) 203 mg/dL 70-110 A Lab Interpretation (test cod e = 84299-8) [facility]normal [facility] SARS-[facility]OV-2 ANTIGEN (BINAX NOW)2023-10-02 13:43:00* Test Item Value Reference Range Interpretation Comme nts POCT SARS-COV-2 ANTIGEN (test code = 11203-7) Not Detected Not Detected, See Comment On board controls acceptable with C Line (test code = 3574) Yes [facility] Notes Date/Time Note Provider Source 2023-10-03 14:25:21 Called pt, discussed results and poc. Pt verbalized understanding. Mariluz Bishop RN 10/03/23 2:25 PM Mariluz Bishop RN [facility] 2023-10-03 13:56:51 Called pt, no answer. Left vm. Mariluz Bishop RN 10/03/23 1:57 PM T [facility] 2023-10-03 11:20:04 Please make pt aware that [...] evaluation. ISAÍAS Mcknight 10/03/2023 11:36 AM T [facility] 2022-09-15 13:20:54 Formatting of this n ote is different from the original. Chief Complaint Patient presents with IUD Removal New Patient Consult Vita Portillo CMA II [facility] 2022-08-31 16:30:47 Formatting of this n ote is different from the original. Chief Complaint Patient presents with Establish Care Pelvic Pain Pelvic pain and pressure Shikha Moses CMA I [facility]
--- NOTE | 2023-10-13 13:09 | EDPHYS ---
Physician Documentation [facility] Name: Faye Argueta Age: 37 yrs Sex: Female : 1985 Arrival Date: 10/13/2023 Time: 12:36 Bed 12 Private MD: ED Physician Brayan Mckay HPI: 10/12 13:10 This 37 yrs old Female presents to ER via Ambulatory with complaints of Dental sb4 Pain. 13:11 The patient presents with pain. The problem is located in the gums and upper right sb4 cuspid. Onset: The symptoms/episode began/occurred yesterday. Duration: The symptoms are continuous. Modifying factors: The symptoms are alleviated by nothing, the symptoms are aggravated by air, chewing, cold fluids, food, hot fluids, talking. Associated signs and symptoms: The patient has no apparent associated signs or symptoms. The patient has experienced a previous episode, approximately 6 months ago. The patient has not recently seen a physician. Historical: - PSHx: 13:02 Bladder; section; ld1 - Immunization history:: Adult Immunizations up to date. - Infectious Disease History:: Denies. - Social history:: Smoking status: Patient denies any tobacco usage or history of. ROS: 13:11 Constitutional: Negative for fever, chills, and weight loss, sb4 13:11 ENT: Positive for dental pain, 13:11 Neuro: Positive for headache, 13:11 All other systems are negative, Exam: 13:11 Eyes: Extra-ocular motions intact. Periorbital areas with no swelling, redness, or sb4 edema. ENT: Mucous membranes moist. Skin: Warm, dry with normal turgor. Normal color with no rashes, no lesions, and no evidence of cellulitis. 13:11 Constitutional: The patient appears alert, awake, in obvious pain, 13:11 ENT: Dental exam: gum swelling, that is mild, specifically in the upper right cuspid, missing teeth, specifically the upper right cuspid (#6), Vital Signs: 13:02 BP 102 / 63; Pulse 108; Resp 18; Pulse Ox 100% on R/A; Weight 104.33 kg; Height 5 ft. 1 ld1 in. ; Pain 10/10; 13:25 BP 108 / 67; Pulse 77; Resp 20; Temp 98; Pulse Ox 99% ; Pain 10/10; ar6 13:48 BP 107 / 73; Pulse 74; Resp 18; Pulse Ox 99% on R/A; ar6 13:02 Body Mass Index 43.46 (104.33 kg, 154.94 cm) ld1 13:02 Pain Scale: Adult ld1 13:25 Pain Scale: Adult ar6 MDM: 13:08 Patient medically screened. sb4 13:11 Data reviewed: vital signs, nurses notes, and as a result, I will discharge patient. sb4 Counseling: I had a detailed discussion with the patient and/or guardian regarding the historical points, exam findings, and any diagnostic results supporting the discharge/admit diagnosis, the need for outpatient follow up, a dentist, to return to the emergency department if symptoms worsen or persist or if there are any questions or concerns that arise at home. Administered Medications: 13:41 Drug: Ketorolac IM 30 mg IM once Route: IM; Site: right deltoid; ar6 13:48 Follow up: BP 107 / 73; Pulse 74 bpm; Resp 18 bpm; Pulse Ox 99% RA ar6 13:48 Follow up: Response: No adverse reaction ar6 13:42 Drug: Amoxicillin-Clavulanate PO 875 mg PO once Route: PO; ar6 13:49 Follow up: Response: No adverse reaction ar6 13:42 Drug: Hydrocodone-Acetaminophen PO (7.5 mg-325 mg) 1 tabs PO once Route: PO; ar6 13:48 Follow up: Response: No adverse reaction ar6 13:42 Drug: Ondansetron PO 4 mg PO once Route: PO; ar6 13:48 Follow up: Response: No adverse reaction ar6 Disposition Summary: 10/13/23 13:09 Discharge Ordered Notes: Location: Home sb4 Problem: new sb4 Symptoms: have improved sb4 Condition: Stable sb4 Diagnosis - Dental caries, unspecified sb4 Followup: sb4 - With: Jose Hernandez DDS - When: 2 - 3 days - Reason: Recheck today's complaints, Re-evaluation by your physician Discharge Instructions: - Discharge Summary Sheet sb4 - Dental Caries, Adult sb4 - Dental Pain, [id number] sb4 Forms: - Antibiotic Education sb4 - Patient Portal Instructions sb4 - Leadership Thank You Letter sb4 Prescriptions: - Amoxicillin 875 mg Oral Tablet - take 1 tablet ORAL route every 12 hours for 10 days; 20 tablet; Refills: 0, sb4 Product Selection Permitted - Ibuprofen 800 mg Oral Tablet - take 1 tablet ORAL route every 8 hours As needed take with food; 30 tablet; sb4 Refills: 0, Product Selection Permitted Addendum: 10/21/2023 15:33 Co-signature as Attending Physician, Brayan Mckay MD I agree with the assessment and c zacarias plan of care. Signatures: Brayan Mckay MD MD cha Sims, Lauren, RN RN ld1 Eileen Trent, PA-C PA-C sb4 Rekha Girard RN RN ar6
--- NOTE | 2023-10-13 13:09 | ER ---
Nurse's Notes [facility] Name: Faye Argueta Age: 37 yrs Sex: Female : 1985 Arrival Date: 10/13/2023 Time: 12:36 Bed 12 Private MD: Diagnosis: Dental caries, unspecified Presentation: 10/12 13:02 Chief complaint: Patient states: Facial pain right sided - "I think I have a tooth ld1 infection.". Coronavirus screen: At this time, the client does not indicate any symptoms associated with coronavirus-19. Ebola Screen: No symptoms or risks identified at this time. Initial Sepsis Screen: Does the patient meet any 2 criteria? No. Patient's initial sepsis screen is negative. Does the patient have a suspected source of infection? No. Patient's initial sepsis screen is negative. Risk Assessment: Do you want to hurt yourself or someone else? Patient reports no desire to harm self or others. Onset of symptoms was October 13, 2023. 13:02 Method Of Arrival: Ambulatory ld1 13:02 Acuity: ANIYAH 4 ld1 Triage Assessment: 13:02 General: Appears in no apparent distress. comfortable, Behavior is calm, cooperative, ld1 appropriate for age. Pain: Complains of pain in right eye, right cheek, chin and right jaw Pain does not radiate. Pain currently is 10 out of 10 on a pain scale. Quality of pain is described as throbbing, Pain began suddenly, Is continuous. EENT: No signs and/or symptoms were reported regarding the EENT system. Neuro: Level of Consciousness is awake, alert, obeys commands, Oriented to person, place, time, situation, Appropriate for age. Cardiovascular: Capillary refill < 3 seconds Patient's skin is warm and dry. Respiratory: Airway is patent Respiratory effort is even, unlabored. GI: Abdomen is round non-distended. : No signs and/or symptoms were reported regarding the genitourinary system. Derm: No signs and/or symptoms reported regarding the dermatologic system. Historical: - PSHx: 13: Bladder; section; ld1 - Immunization history:: Adult Immunizations up to date. - Infectious Disease History:: Denies. - Social history:: Smoking status: Patient denies any tobacco usage or history of. Screenin:25 [facility] ED Fall Risk Assessment (Adult) History of falling in the last 3 months, ar6 including since admission No falls in past 3 months (0 pts) Confusion or Disorientation No (0 pts) Intoxicated or Sedated No (0 pts) Impaired Gait No (0 pts) Mobility Assist Device Used No (0 pt) Altered Elimination No (0 pt) Score/Fall Risk Level 0 - 2 = Low Risk. [facility] ED Fall Risk Assessment (Adult) Score/Fall Risk Level 0 - 2 = Low Risk Oriented to surroundings, Maintained a safe environment, Educated pt \\T\\ family on fall prevention, incl call for assistance when getting out of bed, Hourly rounding (assess needs \\T\\ fall precautionary measures) done. Abuse screen: Denies threats or abuse. Denies injuries from another. Nutritional screening: No deficits noted. Tuberculosis screening: No symptoms or risk factors identified. Assessment: 13:25 General: Appears in no apparent distress. uncomfortable, Behavior is calm, cooperative, ar6 appropriate for age. Pain: Complains of pain in face Pain currently is 10 out of 10 on a pain scale. Neuro: Level of Consciousness is awake, alert, obeys commands, Oriented to person, place, time, situation. Cardiovascular: Capillary refill < 3 seconds. Respiratory: Airway is patent. GI: Abdomen is round non-distended. : No signs and/or symptoms were reported regarding the genitourinary system. EENT: Oral mucosa is moist. pt. reports upper tooth pain; pt. reports tooth has cracked. Derm: Skin is intact, is healthy with good turgor, Skin is dry, Skin is pink, warm \\T\\ dry. Musculoskeletal: No signs and/or symptoms reported regarding the musculoskeletal system. Vital Signs: 13:02 BP 102 / 63; Pulse 108; Resp 18; Pulse Ox 100% on R/A; Weight 104.33 kg; Height 5 ft. 1 ld1 in. ; Pain 10/10; 13:25 BP 108 / 67; Pulse 77; Resp 20; Temp 98; Pulse Ox 99% ; Pain 10/10; ar6 13:48 BP 107 / 73; Pulse 74; Resp 18; Pulse Ox 99% on R/A; ar6 13:02 Body Mass Index 43.46 (104.33 kg, 154.94 cm) ld1 13:02 Pain Scale: Adult ld1 13:25 Pain Scale: Adult ar6 ED Course: 12:44 Patient arrived in ED. sj2 13:00 Eileen Trent PA-C is PHCP. sb4 13:00 Brayan Mckay MD is Attending Physician. sb4 13:02 Arm band placed on right wrist. ld1 13:04 Triage completed. ld1 13:09 Jose Hernandez DDS is Referral Physician. sb4 13:25 Patient has correct armband on for positive identification. Bed in low position. Call ar6 light in reach. Side rails up X 1. Pulse ox on. NIBP on. 13:25 No provider procedures requiring assistance completed. Patient did not have IV access ar6 during this emergency room visit. 13:34 Rekha Girard, RN is Primary Nurse. ar6 13:49 No apparent distress. ar6 13:49 Provided Education on: medications. ar6 Administered Medications: 13:41 Drug: Ketorolac IM 30 mg IM once Route: IM; Site: right deltoid; ar6 13:48 Follow up: BP 107 / 73; Pulse 74 bpm; Resp 18 bpm; Pulse Ox 99% RA ar6 13:48 Follow up: Response: No adverse reaction ar6 13:42 Drug: Amoxicillin-Clavulanate PO 875 mg PO once Route: PO; ar6 13:49 Follow up: Response: No adverse reaction ar6 13:42 Drug: Hydrocodone-Acetaminophen PO (7.5 mg-325 mg) 1 tabs PO once Route: PO; ar6 13:48 Follow up: Response: No adverse reaction ar6 13:42 Drug: Ondansetron PO 4 mg PO once Route: PO; ar6 13:48 Follow up: Response: No adverse reaction ar6 Medication: 13:25 VIS not applicable for this client. ar6 Outcome: 13:09 Discharge ordered by . sb4 13:49 Discharged to home ambulatory, ar6 13:49 Condition: good 13:49 Discharge instructions given to patient, Instructed on discharge instructions, follow up and referral plans. medication usage, Demonstrated understanding of instructions, follow-up care, medications, Prescriptions given X 2, 13:50 Patient left the ED. ar6 Signatures: Yeny Simpson RN RN ld1 Eileen Trent PA-C PA-C sb4 Rekha Girard RN RN ar6 [place], Sonceria sj2
[2023-10-13] MEDS ORDERED: KETOROLAC 30 MG/ML INJ ONE (13:39)
[2023-10-13] MEDS ORDERED: AMOX/K CLAV 875 MG TAB ONE (13:39)
[2023-10-13] MEDS ORDERED: HYDROCODONE/APAP 7.5/325 MG TAB ONE (13:40)
[2023-10-13] MEDS ORDERED: ONDANSETRON 4 MG (ODT) TAB ONE (13:40)
[2023-10-13 13:55] VITALS: TEMP 98; O2SAT 99
[2023-10-13 13:57] VITALS: BP 107/73
== END 2023-10-13 13:50 | disposition home or self-care (01) ==
LOC: ER 12:36
DX: K02.9 Dental caries, unspecified (principal); R51.9 Headache, unspecified
CPT/HCPCS: 96372; 99284; Q0162

== ENCOUNTER 2024-02-13 18:04 | Emergency (ER) | payer OTHER ==
--- OUTSIDE RECORDS SUMMARY | 2024-02-13 18:07 | XMS REPORT | Continuity of Care Document ---
Author Name Unknown Address [address] [place] [address] [facility] thconnect Address [address] [place] [address] Care Team Providers Care Sales Analyst Name Role Phone Pcp, Patient Does Not Have A Primary Care Physic leanne SULMA BELTRAN Attending Clinician Unavailable LAB45 Attending Clinician Unavailable HERMINIA HAYS Attending Clinician Unavailable DIAN WALSH Attending Clinician Unavailable Hasmukh Roberts Attending Clinician [phone] HASMUKH ROGER Attending Clinician Unavailable RENETTA FISHER Attending Clinician RENETTA Phillips Attending Clinician CAMRYN Mirza Attending Clinician Unavailab le LAB90 Attending Clinician Unavailable BO GARZA Attending Clinician Unavailable CLARK DICKERSON Attending Clinician Unavailable MD STEPHANY Attending Clinician Unavailab RONI Church Attending Clinician Unavailable TRICIA MONTGOMERY Attending Clinician Unavailable Abbi Scanlon RN Attending Clinician Tricia Joseph MD Attending Clinician [phone] Doctor Unassigned, [place] Attending Clinician U LEANN Gutierrez Attending Clinician Unavailable Leann Leonard PA-C Attending Clinician [phone] LEE RICO Attending Clinician Unavailable Melody Ramos Attending Clinician [phone] Lee May Attending Clinician 2, [facility] Attending Clinician Unavailable Karen Monzon Attending Clinician Bolivar Rojas Attending Clinician + [phone] BOLIVAR NO Attending Clinician Unavailab le Payers Payer Name Policy Type Policy Number Effective Date Expirati on Date Source AETBEAU S[employer]MER [facility] [employer]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 9 [id number] 2023 00:00:00 [facility] ROWAN PANIAGUA COPAY FOCUS 9 [id number] 2023 00:00:00 [facility] YVONNE CASILLAS [id number] 2021 00:00:00 Problems Condition Name Condition Details Condition Category Status Onset Date Resolution Date Last Treatment Date Treating Clinician Comments Source Uncontroll ed type 2 diabetes mellitus with hyperglyce gordon (multi HCC) Uncontroll ed type 2 diabetes mellitus with hyperglyce gordon (multi HCC) Disease Active 2023-02 2-11 00:00: 00 Shefali moulton Type 2 diabetes mellitus without complicati on, without long-term current use of insulin (multi HCC) Type 2 diabetes mellitus without complicati on, without long-term current use of insulin (multi HCC) Disease Active 2023-02 1- 00:00: 00 Shefali Brown l Morbid obesity with body mass index of 40.0-49.9 Morbid obesity with body mass index of 40.0-49.9 Disease Active 7-20 00:00: 00 [facility] Presence of intrauteri ne contracept ruel device Presence of intrauteri ne contracept ruel device Disease Resolve d 2021-02 0-24 00:00: 00 2023-10-02 00:00:00 2023-10-02 09:08:21 [facility] Allergies, Adverse Reactions, Alerts Allergy Name Allergy Type Status Severity Reaction(s) Onset Date Inactive Date Treating Clinician Comments Source NO KNOWN ALLERGIE S Drug Class Active [facility] Social History Social Habit Start Date Stop Date Quantity Comments Source Gender identity Dayana Taylor - External History of tobacco use Cigarette Smoker Shefali elizabeth - External ASSERTION Not Shefali Taylor - External Sexual orientation [facility] History SDOH Alcohol Frequency [facility] History SDOH Alcohol Std Drinks [facility] History SDOH Alcohol Binge [facility] Cigarette pack-years 2024-01-17 00:00:00 2024-01-17 00:00:00 Shefali Taylor - External Tobacco use and exposure 2024-01-17 00:00:00 2024-01-17 00:00:00 Smokeless tobacco non-user Shefali Taylor - External Cigarettes smoked current (pack per day) - Reported 2024-01-17 00:00:00 2024-01-17 00:00:00 Shefali Taylor - External Alcoholic beverage intake 2024-01-17 00:00:00 2024-01-17 00:00:00 .14 /d Shefali Taylor - External History of Social function 2023-10-02 00:00:00 2023-10-02 00:00:00 [facility] Alcohol intake 2022-12-05 00:00:00 2022-12-05 00:00:00 .14 /d Shefali Taylor - External Alcohol Comment 2022-08-31 00:00:00 2022-08-31 00:00:00 socially Shefali Taylor - External Sex 2022-08-12 02:18:29 2022-08-12 02:18:29 Female (finding) Shefali Taylor - External Exposure to SARS-CoV-2 (event) 2021-11-19 00:00:00 2021-11-29 08:41:00 Not sure [facility] Sex assigned at 1985 00:00:00 1985 00:00:00 Shefali Taylor - External Smoking Status Start Date Stop Date Source Smokes tobacco daily 2024-01-17 00:00:00 Shefali Taylor - External Medications Ordered Medication Name Filled Medication Name Start Date Stop Date Current Medication? Ordering Clinician Indication Dosage Frequency Signature (SIG) Comments Components Source Insulin Pen Needle 32G X 4 MM does not apply Misc 2023-02 00:00: 00 Yes [id number] Once a day. Shefali moulton Continuous Glucose Sensor (Dexcom G7 Sensor) does not apply Misc 2023-02 00:00: 00 Yes [id number] USE EVERY 10 DAYS. 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 Shefali moulton OZEMPIC (0.25 or 0.5 mg/dose) 2 mg/3 mL SQ Solution Pen-Injecto r 2023-02 00:00: 00 03-14 05:59 :00 Yes [id number] .25mg Q1W Inject 0.25 mg into the skin once a week. Shefali moulton Gabapentin 100 MG oral Capsule 2023-02 00:00: 00 Yes [id number] 9102 TAKE THREE (3) CAPSULES BY MOUTH THREE TIMES DAILY NEEDED. Shefali moulton Metformin HCl 500 MG oral Tablet 2023-02 00:00: 00 Yes [id number] TAKE ONE (1) TABLET(S) BY MOUTH IN THE MORNING AND 1 TABLET IN THE EVENING. TAKE WITH MEALS. Shefali moulton Gabapentin 100 MG oral Capsule 2023-02 00:00: 00 Yes [id number] 9102 300mg Q.[id number] 3D Take 3 capsules (300 mg total) by mouth 3 times daily as needed. Shefali moulton Metformin HCl 500 MG oral Tablet 2023-02 00:00: 00 Yes [id number] 500mg Take 1 tablet (500 mg total) by mouth in the morning and 1 tablet (500 mg total) in the evening. Take with meals. Shefali moulton metFORMIN 500 mg tablet 10-02 00:00: 00 Yes [id number] 500mg Take 1 tablet by mouth in the morning and 1 tablet in the evening. Take with meals. [facility] Cefdinir 300 MG oral Capsule 2022-02 0 00:00: 00 01-16 00:00 :00 No [id number] 300mg Q.5D Take 1 capsule (300 mg total) by mouth 2 times daily. Shefali moulton Diclofenac Sodium 75 MG oral Tablet Delayed Response 2022-02 0 00:00: 00 Yes [id number] 9108 75mg Q.5D Take 1 tablet (75 mg total) by mouth 2 times daily. Shefali moulton predniSONE (DELTASONE) 20 MG oral tablet 2022-02 0 00:00: 00 Yes [id number] 9108 20mg QD Take 1 tablet (20 mg total) by mouth daily. Shefali moulton predniSONE (DELTASONE) 20 MG oral tablet 18 00:00: 00 12-05 00:00 :00 No [id number] 9108 20mg Take 1 tablet (20 mg total) by mouth daily. Shefali moulton miSOPROStol (CYTOTEC) 200 MCG oral Tablet 10-05 00:00: 12-05 00:00 :00 No [id number] 200ug Take 1 tablet (200 mcg total) by mouth See Admin Instructio ns Take 1 tablet (200 mcg) by mouth at bedtime the night before the procedure. Take the second pill by mouth 4 hours prior to the procedure. . Shefali moulton Gabapentin 100 MG oral Capsule 09-19 00:00: 00 12-31 00:00 :00 No [id number] 9102 300mg Q.[id number] 3D Take 3 capsules (300 mg total) by mouth 3 times daily as needed Shefali moulton Diclofenac Sodium 75 MG oral Tablet Delayed Response 09-19 00:00: 00 12-05 00:00 :00 No [id number] 75mg Take 1 tablet (75 mg total) by mouth 2 times daily Shefali moulton Amoxicillin -Pot Clavulanate 875-125 MG oral Tablet 7-26 00:00: 00 Yes [id number] 1{tbl} Take 1 tablet by mouth 2 times daily Shefali moulton TRIMETHOPRI M-POLYMYXIN B 13995-9.1 UNIT/ML-% ophthalmic Solution 08-31 00:00: 00 12-05 00:00 :00 No [id number] 9102 1[drp] Apply 1 drop to eye [...] 200 mg tablet 2021-02 00:00: 00 Yes [id number] 200mg Take 1 tablet by mouth in the morning. [facility] No known medications 2021-02 14:57: 23 No No known medication s [facility] miSOPROStoL 200 mcg tablet 10-27 00:00: 00 Yes [id number] Take one tablet night before procedure, then take one tablet morning of procedure [facility] metroNIDAZO LE 500 mg tablet 10-27 00:00: 00 Yes [id number] 500mg Take 1 tablet by mouth every 12 (twelve) hours. [facility] fluconazole 150 mg tablet 10-27 00:00: 00 10-28 04:59 :00 No [id number] 150mg Take 1 tablet by mouth once now for 1 dose. [facility] miSOPROStoL 200 mcg tablet 09-28 00:00: 00 10-27 00:00 :00 No [id number] Take one tablet night before procedure, then take one tablet morning of procedure [facility] nystatin 100,000 unit/gram cream 09-16 00:00: 00 Yes [id number] Apply to area(s) 2 (two) times daily. [facility] Immunizations Ordered Immunization Name Filled Immunization Name Date Status Comments Source Influenza, Injectable, Mdck, Preservative Free, Quadrivalt 2021-11-29 00:00:00 Completed Shefali Taylor - External Influenza Virus Vaccine Quad IM, Preserv and ABX Free 6 MO-64 YRS 2021-11-29 00:00:00 Completed [facility] Influenza Virus Vaccine Quad IM, Preserv and ABX Free 6 MO-64 YRS 2021-11-29 00:00:00 Completed [facility] Influenza Virus Vaccine Quad IM, Preserv and ABX Free 6 MO-64 YRS 2021-11-29 00:00:00 Completed [facility] Influenza Virus Vaccine Quad IM, Preserv and ABX Free 6 MO-64 YRS 2021-11-29 00:00:00 Completed [facility] Influenza, Injectable, Mdck, Preservative Free, Quadrivalent Unknown Completed Shefali Taylor - External Influenza, Injectable, Mdck, Preservative Free, Quadrivalent Unknown Completed Shefali Taylor External Influenza, Injectable, Mdck, Preservative Free, Quadrivalent Unknown Completed Shefali Taylor - External Influenza Virus Vaccine Quad IM, Preserv and ABX Free 6 MO-64 YRS (FLUCELVAX) Unknown Completed [facility] Influenza Virus Vaccine Quad IM, Preserv and ABX Free 6 MO-64 YRS (FLUCELVAX) Unknown Completed [facility] Influenza Virus Vaccine Quad IM, Preserv and ABX Free 6 MO-64 YRS (FLUCELVAX) Unknown Completed [facility] Vital Signs Vital Name Observation Time Observation Value Comments S ource Systolic blood pressure 2024-01-17 15:35:00 100 mm[Hg] Shefali Tovar ld - External Diastolic blood pressure 2024-01-17 15:35:00 60 mm[Hg] Shefali Tovar ld - External Heart rate 2024-01-17 15:35:00 82 /min Valeria Taylor - External Body temperature 2024-01-17 15:35:00 36.33 Daiana Shefali Taylor - External Respiratory rate 2024-01-17 15:35:00 20 /min Shefali Taylor - External Body height 2024-01-17 15:35:00 157.5 cm Dayana Taylor - External Body weight 2024-01-17 15:35:00 100.018 kg Dayana ey Seybold - External BMI 2024-01-17 15:35:00 40.33 kg/m2 Dayana ey Seybold - External Systolic blood pressure 2023-10-02 12:58:00 95 mm[Hg] [facility] Diastolic blood pressure 2023-10-02 12:58:00 63 mm[Hg] [facility] Heart rate 2023-10-02 12:58:00 82 /min [facility] Body temperature 2023-10-02 12:58:00 35.56 Daiana [facility] Respiratory rate 2023-10-02 12:58:00 18 /min [facility] Body height 2023-10-02 12:58:00 154.9 cm [facility] Body weight 2023-10-02 12:58:00 103.828 [facility] BMI 2023-10-02 12:58:00 43.25 kg/m2 [facility] Systolic blood pressure 2022-12-05 19:14:00 118 mm[Hg] [...] 98 /min Shefali Seybo ld - External Body weight 2022-09-15 18:30:00 86.728 kg Dayana ey Seybold - External BMI 2022-09-15 18:30:00 36.13 kg/m2 Dayana ey Seybold - External Systolic blood pressure 2022-09-15 18:30:00 120 mm[Hg] Shefali Seybo ld - External Diastolic blood pressure 2022-09-15 18:30:00 60 mm[Hg] Shefali Seybo ld - External Heart rate 2022-09-15 18:30:00 68 /min Kelse y Seybold - External Body temperature 2022-09-15 18:30:00 36.72 Daiana Shefali Seybold - External Respiratory rate 2022-09-15 18:30:00 16 /min Shefali Seybold - External Body height 2022-09-15 18:30:00 154.9 cm Dayana ey Seybold - External Systolic blood pressure 2022-08-31 21:25:00 96 mm[Hg] Shefali Seybo ld - External Diastolic blood pressure 2022-08-31 21:25:00 50 mm[Hg] Shefali Seybo ld - External Heart rate 2022-08-31 21:25:00 107 /min Kelse y Seybold - External Body temperature 2022-08-31 21:25:00 37.72 Daiana Shefali Seybold - External Respiratory rate 2022-08-31 21:25:00 18 /min Shefali Seybold - External Body height 2022-08-31 21:25:00 154.9 cm Dayana ey Seybold - External Body weight 2022-08-31 21:25:00 87.907 kg Dayana ey Seybold - External BMI 2022-08-31 21:25:00 36.62 kg/m2 Dayana ey Seybold - External Systolic blood pressure 2021-10-27 18:49:00 94 mm[Hg] [facility] Diastolic blood pressure 2021-10-27 18:49:00 61 mm[Hg] [facility] Heart rate 2021-10-27 18:49:00 88 [facility] 2021-10-27 18:49:00 37 Daiana [facility] Body height 2021-10-27 18:49:00 154.9 [facility] weight 2021-10-27 18:49:00 96.072 kg [facility] BMI 2021-10-27 18:49:00 40.02 kg/m2 [facility] Systolic blood pressure 2021-10-02 18:49:00 101 mm[Hg] [facility] Diastolic blood pressure 2021-10-02 18:49:00 65 mm[Hg] [facility] Heart rate 2021-10-02 18:49:00 78 /min [facility] Body temperature 2021-10-02 18:49:00 36.11 Daiana [facility] Respiratory rate 2021-10-02 18:49:00 17 /min [facility] Body height 2021-10-02 18:49:00 154.9 cm [facility] Body weight 2021-10-02 18:49:00 98.062 kg [facility] BMI 2021-10-02 18:49:00 40.85 kg/m2 [facility] Oxygen saturation in Arterial blood by Pulse oximetry 2021-10-02 18:49:00 98 /min [facility] Procedures Procedure Date / Time Performed Performing Clinician Source POCT GLUCOSE(AGE >30DAYS) 2023-10-02 14:23[facility] (A1C) 2023-10-02 14:18:00 Hasmukh Roegr [facility] HIV 1/2 AG-AB WITH REFLEX 2023-10-02 14:18:00 Kana [facility] PAP SMEAR-LIQUID BASED-CP 2023-10-02 14:18:00 Kana [facility] SYPHILIS IGG/IGM 2023-10-02 14:18:[address] [facility] 2023-10-02 14:13:00 Kana [facility] POCT SARS-COV-2 ANTIGEN (BINAX NOW) 2023-10-02 13:25:00 Hasmukh Roger [facility] ULTRASOUND 2021-11-29 05:01:00 Doctor Unassigned, [place] [facility] EXTERNAL PROVIDER RECORDS 2021 05:01:00 Doctor Unassigned, [place] [facility] Encounters Start Date/Time End Date/Time Encounter Type Admission Type Attending [facility] Care Department Encounter ID Source 2024-04-17 10:00:00 2024-04-17 10:00:00 Outpatient SULMA BELTRAN [id number] Shefali Taylor 2024-01-22 00:00:00 2024-01-22 00:00:00 Outpatient SULMA BELTRAN [id number] [facility] 2024-01-22 00:00:00 2024-01-22 00:00:00 Outpatient SULMA BELTRAN [id number] [facility] 2024-01-17 10:20:00 2024-01-17 10:20:00 Outpatient JOSE MARIA JAQUEZ [id number] [facility] 2024-01-17 09:30:00 2024-01-17 09:30:00 Outpatient SULMA BELTRAN [id number] [facility] 2024-01-16 00:00:00 2024-01-16 00:00:00 Outpatient HERMINIA HAYS [id number] [facility] 2024-01-10 00:00:00 2024-01-10 00:00:00 Outpatient DIAN WALSH [id number] [facility] 2024-01-01 11:00:00 2024-01-01 11:00:00 Outpatient HERMINIA HAYS [id number] [facility] 2023-11-01 00:00:00 2023-11-01 13:58:18 Refill Hasmukh Roger [facility] MA[facility] MAT[facility]NAL & CHILD [facility] 1.2.840.114 350.1.13.10 4.2.7.2.686 [id number] [facility] 2023-10-03 00:00:00 2023-10-03 14:25:59 Telephone Hasmukh Roger [facility] & CHILD [facility] 1.2.840.114 350.1.13.10 4.2.7.2.686 [id number] [facility] 2023-10-02 07:45:00 2023-10-02 09:19:40 Outpatient R HASMUKH ROGER [facility] [id number] [facility] 2023-10-02 07:45:00 2023-10-02 09:19:40 Office Visit Hasmukh Roger [facility] & CHILD [facility] 1.2.840.114 350.1.13.10 4.2.7.2.686 [id number] [facility] 2023-09-29 13:45:00 2023-09-29 13:45:00 Outpatient RENETTA SANCHEZ MARISOL [facility] [id number] [facility] 2022-12-13 09:30:00 2022-12-13 09:30:00 Outpatient CAMRYN CONWAY [id number] [facility] 2022-12-09 00:00:00 2022-12-09 00:00:00 Outpatient CAMRYN CONWAY [id number] [facility] 2022-12-06 00:00:00 2022-12-06 00:00:00 Outpatient CAMRYN CONWAY [id number] [facility] 2022-12-06 00:00:00 2022-12-06 00:00:00 Outpatient CAMRYN CONWAY [id number] [facility] 2022-12-05 14:45:00 2022-12-05 14:45:00 Outpatient LAB90 [facility]ALI [facility] [id number] [facility] 2022-12-05 14:00:00 2022-12-05 14:00:00 Outpatient CAMRYN CONWAY [id number] [facility] 2022-11-04 09:30:00 2022-11-04 09:30:00 [facility] BO [facility] [id number] [facility] 2022-10-26 14:00:00 2022-10-26 14:00:00 Outpatient BO GARZA [id number] Shefali Seybold 2022-10-24 14:30:00 2022-10-24 14:30:00 Outpatient DICKERSON CLARK SHEFALI JAQUEZ [id number] Shefali Seybold 2022-10-24 00:00:00 2022-10-24 00:00:00 Outpatient NICO DIAN SHEFALI JAQUEZ [id number] Shefali Seybold 2022-10-05 00:00:00 2022-10-05 00:00:00 Outpatient BO GAR[facility] [id number] [facility] 2022-10-05 00:00:00 2022-10-05 00:00:00 Outpatient MD SHEFALI NIXON [id number] [facility] 2022-09-28 00:00:00 2022-09-28 00:00:00 Outpatient RONI ASTORGA [id number] [facility] 2022-09-19 10:00:00 2022-09-19 10:00:00 Outpatient RONI ASTORGA [id number] [facility] 2022-09-16 00:00:00 2022-09-16 00:00:00 Outpatient RONI ASTORGA [id number] Shefali Seybold 2022-09-15 14:15:00 2022-09-15 14:15:00 Outpatient LAB45 SHEFALI JAQUEZ [id number] Shefali Seybold 2022-09-15 13:30:00 2022-09-15 13:30:00 Outpatient BO GARZA [id number] Shefali Seybold 2022-09-01 00:00:00 2022-09-01 00:00:00 Outpatient RONI ASTORGA [id number] Shefali Seybold 2022-08-31 17:15:00 2022-08-31 17:15:00 Outpatient LABJackelyn JAQUEZ [id number] Shefali Seybold 2022-08-31 16:30:00 2022-08-31 16:30:00 Outpatient RONI ASTORGA SHEFALI [id number] [facility] 2022-08-31 00:00:00 2022-08-31 00:00:00 Outpatient DIAN WALSH SHEFALI [id number] [facility] 2022-08-31 00:00:00 2022-08-31 00:00:00 Outpatient RONI ASTORGA SHEFALI [id number] [facility] 2022-08-25 15:00:00 2022-08-25 15:00:00 Outpatient TRICIA VALENZUELA [facility] [id number] [facility] 2022-08-25 15:00:00 2022-08-25 15:00:00 Outpatient TRICIA VALENZUELA [facility] [id number] [facility] 2022-06-22 00:00:00 2022-06-22 00:00:00 Telephone Abbi Scanlon [facility] .2.840.114 350.1.13.10 4.2.7.2.686 [id number] [facility] 2022-01-05 09:00:00 2022-01-05 09:00:00 Outpatient TRICIA VALENZUELA [facility] [id number] [facility] 2021-12-06 00:00:00 2021-12-06 00:00:00 Telephone Tricia [facility] .2.840.114 350.1.13.10 4.2.7.2.686 [id number] [facility] 2021-11-30 00:00:00 2021-11-30 00:00:00 Case Management Tricia [facility] 1.2.840.114 350.1.13.10 4.2.7.2.686 [id number] [facility] 2021-11-29 09:00:00 2021-11-29 10:24:09 [id number] 2021-11-29 00:00:00 2021-11-29 00:00:00 Orders Only Doctor Unassigned, [place] [facility] 1.2840.114 350.1.13.10 4.2.7.2.686 [id number] [facility] 2021-10-27 13:15:00 2021-10-27 14:25:01 Outpatient R LACI [facility] [id number] [facility] 2021-10-27 13:15:00 2021-10-27 14:25:01 Office Visit Laci [facility] 1..840.114 350.1.13.10 4.2.7.2.686 [id number] [facility] 2021-10-27 09:00:00 2021-10-27 09:00:00 Outpatient R VALENTINA [facility] [id number] [facility] 2021-10-27 00:00:00 2021-10-27 00:00:00 Telephone Laci [facility] 1..840.114 350.1.13.10 4.2.7.2.686 [id number] [facility] 2021 00:00:00 2021 00:00:00 Orders Only Doctor Unassigned, [place] [facility] 1.2840.114 350.1.13.10 4.2.7.2.686 [id number] [facility] 2021-10-02 13:40:00 2021-10-02 14:11:51 Outpatient R LEE RICO [facility] [id number] [facility] 2021-10-02 13:40:00 2021-10-02 14:11:51 Urgent Care GreenMelodyaylinrin, Lee [facility] 1.2840.114 350.1.13.10 4.2.7.2.686 [id number] [facility] 2021-09-14 00:00:00 2021-09-14 00:00:00 Telephone Tricia Montgomery [facility] 1.2.114 350.1.13.10 4.2.7.2.686 [id number] [facility] 2021-08-25 11:30:00 2021-08-25 11:45:00 Skin Carver Visit 2, Adc Lab Leann Leonard [facility] 1.2840.114 350.1.13.10 4.2.7.2.686 [id number] [facility] 2021-08-25 10:00:00 2021-08-25 10:31:00 Outpatient R LACI [facility] [id number] [facility] 2021-08-25 10:00:00 2021-08-25 10:31:00 Office Visit Laci Leann [facility] 1.284.114 350.1.13.10 4.2.7.2.686 [id number] [facility] 2021-08-25 10:00:00 2021-08-25 10:31:00 Outpatient R LACI [facility] [id number] [facility] 2021-08-25 00:00:00 2021-08-25 00:00:00 Letter (Out) Doctor Unassigned, [place] [facility] 1.20.114 350.1.13.10 4.2.7.2.686 [id number] [facility] 2021-08-25 00:00:00 2021-08-25 00:00:00 [facility] 1.2.840.114 350.1.13.10 4.2.7.2.686 [id number] [facility] 2021-08-25 00:00:00 2021-08-25 00:00:00 Orders Only Doctor Unassigned, [place] [facility] 1.2.840.114 350.1.13.10 4.2.7.2.686 [id number] [facility] 2021-05-27 17:00:00 2021-05-27 17:57:09 Urgent Care Karen Walter Kimberly [facility] 1..840.114 350.1.13.10 4.2.7.2.686 [id number] [facility] 2021-05-27 17:00:00 2021-05-27 17:57:09 Outpatient R BOLIVAR NO [facility] [id number] [facility] 2021-05-27 00:00:00 2021-05-27 00:00:00 Orders Only Doctor Unassigned, [place] [facility] 1.2.840.114 350.1.13.10 4.2.7.2.686 [id number] [facility] Results Test Description Test Time Test Comments Results Result Co mments Source [facility] Glucose(Age >30days)2023-10-02 14:23:00* Test Item Value Reference Range Interpretation Comme nts POCT Glu (age>30days) (test code = 3342) 203 mg/dL 70-110 A Lab Interpretation (test cod e = 34323-8) Abnormal [facility] SARS-COV-2 ANTIGEN (BINAX NOW)2023-10-02 13:43:00* Test Item Value Reference Range Interpretation Comme nts POCT SARS-COV-2 ANTIGEN (test code = 28094-7) Not Detected Not Detected, See Comment On board controls acceptable with C Line (test code = 3574) Yes [facility]
[2024-02-13] MEDS ORDERED: KETOROLAC 30 MG/ML INJ ONE (18:16)
[2024-02-13] MEDS ORDERED: dexAMETHasone 10 MG/ML VIAL ONE (18:16)
--- NOTE | 2024-02-13 18:33 | RAD REPORT ---
EXAMINATION: XR RIGHT SHOUDLER CLINICAL INDICATION: Female, 38 years old. PAIN RIGHT TECHNIQUE: Multiple views of the right shoulder were obtained. COMPARISON: No prior exam. FINDINGS: No bone or joint abnormality detected.
--- NOTE | 2024-02-13 19:14 | EDPHYS ---
Physician Documentation [facility] Name: Faye Argueta Age: 38 yrs Sex: Female : 1985 Arrival Date: 02/13/2024 Time: 18:04 Bed 6 Private MD: ED Physician Yanni Murphy HPI: 02/12 18:15 This 38 yrs old Female presents to ER via Unassigned with complaints of Neck sb4 and Upper Back Pain. 18:15 right shoulder pain x 2 week. states that she works at [employer] and sb4 was very busy during the holidays. has been off work for 1 week, states the pain has improved, but is still there. reports the pain radiates up into her upper back/neck. denies any numbness or tingling. Historical: - Allergies: 18:14 No Known Allergies; ld1 - PSHx: 18:12 Bladder; section; ld1 - Immunization history:: Adult Immunizations. - Infectious Disease History:: Denies. - Social history:: Smoking status: Patient denies any tobacco usage or history of. Smoking status: Patient reports the use of cigarette tobacco products, smokes one-half pack cigarettes per day. ROS: 18:15 Constitutional: Negative for fever, chills, and weight loss, sb4 18:15 MS/extremity: Positive for decreased range of motion, pain, of the anterior aspect of right shoulder and posterior aspect of right shoulder, 18:15 All other systems are negative, Exam: 18:17 Constitutional: This is a well developed, well nourished patient who is awake, alert, sb4 and in no acute distress. Head/Face: Normocephalic, atraumatic. Eyes: Extra-ocular motions intact. Periorbital areas with no swelling, redness, or edema. ENT: Mucous membranes moist. Respiratory: No increased work of breathing, no retractions or nasal flaring. 18:17 Musculoskeletal/extremity: ROM: limited active range of motion, limited passive range of motion due to pain, in the right arm, Circulation is intact in all extremities. Pulses: are normal with no appreciated deficits, Sensation intact. Vital Signs: 18:18 BP 127 / 75; Pulse 85; Resp 18; Temp 97.6(TE); Pulse Ox 96% on R/A; MAP 90 mmHg; Weight tm6 98.88 kg; Height 5 ft. 2 in. ; Pain 9/10; 18:36 BP 127 / 75; Pulse 82; Resp 18; Pulse Ox 98% on R/A; Pain 8/10; ld1 18:18 Body Mass Index 39.87 (98.88 kg, 157.48 cm) tm6 18:18 Pain Scale: Adult tm6 18:36 Pain Scale: Adult ld1 MDM: 18:09 Medical Screening Exam initiated sb4 19:13 Data reviewed: vital signs, nurses notes, radiologic studies, and as a result, I will sb4 discharge patient. Counseling: I had a detailed discussion with the patient and/or guardian regarding the historical points, exam findings, and any diagnostic results supporting the discharge/admit diagnosis, radiology results, to return to the emergency department if symptoms worsen or persist or if there are any questions or concerns that arise at home. 02/12 18:14 Order name: Shoulder Right (2 View) XRAY; Complete Time: 18:37 sb4 Administered Medications: 18:37 Drug: Ketorolac IM 30 mg IM once Route: IM; Site: right deltoid; ld1 19:38 Follow up: Response: No adverse reaction ay 18:37 Drug: Dexamethasone IM 10 mg IM once Route: IM; Site: left deltoid; ld1 19:38 Follow up: Response: No adverse reaction ay Disposition Summary: 02/13/24 19:14 Discharge Ordered Notes: Location: Home sb4 Problem: new sb4 Symptoms: have improved sb4 Condition: Stable sb4 Diagnosis - Adhesive capsulitis of right shoulder sb4 Followup: sb4 - With: Sumeet Lawrence MD - When: As needed - Reason: Recheck today's complaints, Re-evaluation by your physician Discharge Instructions: - Discharge Summary Sheet sb4 - Shoulder Range of Motion Exercises sb4 - Shoulder Pain, [id number] sb4 - Adhesive Capsulitis sb4 Forms: - Work release form sb4 - Patient Portal Instructions sb4 - Leadership Thank You Letter sb4 Prescriptions: - Ibuprofen 800 mg Oral Tablet - take 1 tablet ORAL route every 8 hours As needed take with food; 30 tablet; sb4 Refills: 0, Product Selection Permitted - Medrol (Eleazar) 4 mg Oral Tablets, Dose Pack - take 1 tablet ORAL route as directed - follow package instructions; 1 packet; sb4 Refills: 0, Product Selection Permitted - Cyclobenzaprine 5 mg Oral Tablet - take 1 tablet ORAL route 3 times per day As needed; 15 tablet; Refills: 0, sb4 Product Selection Permitted Signatures: Dispatcher [employer] Yeny Mehta RN RN ld1 Eileen Trent PA-C PA-C sb4 Jonna Roblero RN RN tm6 Bryce Kathleen RN ay
--- NOTE | 2024-02-13 19:14 | ER ---
Nurse's Notes [facility] Name: Faye Argueta Age: 38 yrs Sex: Female : 1985 Arrival Date: 02/13/2024 Time: 18:04 Bed 6 Private MD: Diagnosis: Adhesive capsulitis of right shoulder Presentation: 02/12 18:18 Chief complaint: Patient states: since 02/07/24, right shoulder and neck pain. Feels tm6 swollen, cannot lift arm up. Coronavirus screen: Client denies travel out of the [place] in the last 14 days. Ebola Screen: Patient negative for fever greater than or equal to 101.5 degrees Fahrenheit, and additional compatible Ebola Virus Disease symptoms Patient denies exposure to infectious person. Patient denies travel to an Ebola-affected area in the 21 days before illness onset. No symptoms or risks identified at this time. Initial Sepsis Screen: Does the patient meet any 2 criteria? No. Patient's initial sepsis screen is negative. Does the patient have a suspected source of infection? No. Patient's initial sepsis screen is negative. Risk Assessment: Do you want to hurt yourself or someone else? Patient reports no desire to harm self or others. Onset of symptoms was February 07, 2024. 18:18 Method Of Arrival: Ambulatory tm6 18:18 Acuity: ANIYAH 4 tm6 Triage Assessment: 18:18 General: Appears uncomfortable, Behavior is calm, cooperative. Pain: Complains of pain tm6 in neck and right arm and posterior aspect of right shoulder and anterior aspect of right shoulder Pain currently is 9 out of 10 on a pain scale. EENT: No signs and/or symptoms were reported regarding the EENT system. Neuro: Level of Consciousness is awake, alert, obeys commands, Oriented to person, place, time, situation. Cardiovascular: Patient's skin is warm and dry. Respiratory: Airway is patent Respiratory effort is even, unlabored, Respiratory pattern is regular, symmetrical. GI: No signs and/or symptoms were reported involving the gastrointestinal system. Abdomen is round. : No signs and/or symptoms were reported regarding the genitourinary system. Derm: No signs and/or symptoms reported regarding the dermatologic system. Musculoskeletal: Reports pain in neck and right arm and posterior aspect of right shoulder and anterior aspect of right shoulder since 02/07/24. Pain is 9 out of 10 on a pain scale. Historical: - Allergies: 18:14 No Known Allergies; ld1 - PSHx: 18:12 Bladder; section; ld1 - Immunization history:: Adult Immunizations. - Infectious Disease History:: Denies. - Social history:: Smoking status: Patient denies any tobacco usage or history of. Smoking status: Patient reports the use of cigarette tobacco products, smokes one-half pack cigarettes per day. Screenin:36 [facility] ED Fall Risk Assessment (Adult) History of falling in the last 3 months, ld1 including since admission No falls in past 3 months (0 pts) Confusion or Disorientation No (0 pts) Intoxicated or Sedated No (0 pts) Impaired Gait No (0 pts) Mobility Assist Device Used No (0 pt) Altered Elimination No (0 pt) Score/Fall Risk Level 0 - 2 = Low Risk Oriented to surroundings, Maintained a safe environment, Educated pt \T\ family on fall prevention, incl call for assistance when getting out of bed, Assessed \T\ reinforced patient's understanding of fall precautions, Provided non-skid footwear, Hourly rounding (assess needs \T\ fall precautionary measures) done, Used ambulatory aids as needed (educated on \T\ assisted with), Used gait belt as appropriate. Abuse screen: Denies threats or abuse. Denies injuries from another. Nutritional screening: No deficits noted. Tuberculosis screening: No symptoms or risk factors identified. Assessment: 18:36 General: Appears in no apparent distress. comfortable, Behavior is calm, cooperative, ld1 appropriate for age. Pain: Complains of pain in back and neck Pain does not radiate. Pain currently is 8 out of 10 on a pain scale. Quality of pain is described as throbbing, Pain began 2-3 days ago. Is continuous. Neuro: Level of Consciousness is awake, alert, obeys commands, Oriented to person, place, time, situation, Appropriate for age. Cardiovascular: Capillary refill < 3 seconds Patient's skin is warm and dry. Respiratory: Airway is patent Respiratory effort is even, unlabored. GI: Abdomen is round non-distended. : No signs and/or symptoms were reported regarding the genitourinary system. EENT: No signs and/or symptoms were reported regarding the EENT system. Derm: No signs and/or symptoms reported regarding the dermatologic system. Musculoskeletal: No signs and/or symptoms reported regarding the musculoskeletal system. 19:32 Reassessment: Took over the care of pt. Pt alert and oriented, no any distress noted, ay VSS. Vital Signs: 18:18 BP 127 / 75; Pulse 85; Resp 18; Temp 97.6(TE); Pulse Ox 96% on R/A; MAP 90 mmHg; Weight tm6 98.88 kg; Height 5 ft. 2 in. ; Pain 9/10; 18:36 BP 127 / 75; Pulse 82; Resp 18; Pulse Ox 98% on R/A; Pain 8/10; ld1 18:18 Body Mass Index 39.87 (98.88 kg, 157.48 cm) tm6 18:18 Pain Scale: Adult tm6 18:36 Pain Scale: Adult ld1 ED Course: 18:07 Patient arrived in ED. ra3 18:08 Eileen Trent PA-C is PHCP. sb4 18:08 Yanni Murphy MD is Attending Physician. sb4 18:12 Yeny Simpson, GABBY is Primary Nurse. ld1 18:18 Arm band placed on right wrist. tm6 18:20 Triage completed. tm6 18:27 Shoulder Right (2 View) XRAY In Process Unspecified. EDMS 18:36 Patient has correct armband on for positive identification. Placed in gown. Bed in low ld1 position. Call light in reach. Side rails up X2. engine monitor on. Pulse ox on. NIBP on. Door closed. Noise minimized. Warm blanket given. 18:36 No provider procedures requiring assistance completed. ld1 19:13 Sumeet Lawrence MD is Referral Physician. sb4 19:30 Patient did not have IV access during this emergency room visit. ay Administered Medications: 18:37 Drug: Ketorolac IM 30 mg IM once Route: IM; Site: right deltoid; ld1 19:38 Follow up: Response: No adverse reaction ay 18:37 Drug: Dexamethasone IM 10 mg IM once Route: IM; Site: left deltoid; ld1 19:38 Follow up: Response: No adverse reaction ay Medication: 18:36 VIS not applicable for this client. ld1 Outcome: 19:14 Discharge ordered by . sb4 19:30 Discharged to home ambulatory, ay 19:30 Condition: stable 19:30 Discharge instructions given to patient, Instructed on discharge instructions, follow up and referral plans. Demonstrated understanding of instructions, follow-up care, medications, Prescriptions given X 3, 19:37 Patient left the ED. ay Signatures: Dispatcher [employer] EDMS Yeny Simpson, RN RN ld1 Eileen Trent, PADMINI [email or web address] Jonna Roblero RN RN [email or web address] Deyanira Sanchez ra3 Bryce Kathleen RN RN ay
[2024-02-13 20:10] VITALS: BP 127/75; TEMP 97.6
[2024-02-13 20:11] VITALS: O2SAT 98
== END 2024-02-13 19:37 | disposition home or self-care (01) ==
LOC: ER 18:04
DX: M75.01 Adhesive capsulitis of right shoulder (principal); F17.210 Nicotine dependence, cigarettes, uncomplicated
CPT/HCPCS: 73030; 96372; 99284; J1100